=== PATIENT | female | born 1930 | race Caucasian/White ===

== ENCOUNTER → 2016-03-02 | Outpatient (CLI) | payer MEDICARE, BC ==
[~2016-03-02] MED LIST: ASPI81CH3 PO; ATIV1TAB10 PO; BYST10TA2 PO; CEFT500T3 PO; DIOV160T6 PO; DO NOT TAKE; FURO20TA2 PO; LEXA1TAB PO; LISI-538 PO; MAGN250T11 PO; MAGN400C2 PO; NIFE60TA6 PO; PROP50TA3 PO; TYLE167L PO; VITAMIN B
--- NOTE | 2016-03-02 15:16 | REP ---
CHEST, TWO VIEWS: HISTORY: Wheezing. COMPARISON: 07/18/2015 Minimal peribronchial cuffing is present. The heart is upper limits of normal in size. The pulmonary vasculature is normal in appearance. There is an old compression fracture of a mid thoracic vertebral body. The bony structure is osteopenic. IMPRESSION: There is peribronchial cuffing that may represent asthma or bronchitis. Signed by Guicho Phelps MD 03/02/2016 03:18 P
== END ==
LOC: M WUC 14:32
PROVIDERS: ATTEND Physician Assistant
DX: J20.9 Acute bronchitis, unspecified (principal); R06.2 Wheezing

== ENCOUNTER → 2016-04-05 | Outpatient (REF) | payer MEDICARE, BC | LOC: M LAB REF 16:21 | PROVIDERS: ATTEND Nurse Practitioner Women's Health | DX: R30.0 Dysuria (principal); R39.15 Urgency of urination; R35.1 Nocturia ==

== ENCOUNTER 2016-04-15 07:53 | Inpatient (IN) | payer BC, MEDICARE ==
[~2016-04-15] VITALS: Ht 162.6 cm; Wt 64.1 kg
[2016-04-15] MEDS ORDERED: ONDANSETRON 4MG/2ML VIAL (J2405) IV ONE ×2 (08:30→09:45)
[2016-04-15 09:05] LABS: INR 1.01
[2016-04-15] MEDS ORDERED: ALBU83IN (09:08)
[2016-04-15 09:13] LABS: ALBUMIN 3.5 GM/DL (3.2-5.2); ALBUMIN/GLOBULIN RATIO 0.95 (1.00-1.93); ALKALINE PHOSPHATASE 98 U/L (45-117); ALT/SGPT 21 U/L (12-78); ANION GAP 9 MEQ/L (8-16); AST/SGOT 12 U/L (15-37); BILIRUBIN,DIRECT 0.1 MG/DL (0.0-0.2); BILIRUBIN,TOTAL 0.5 MG/DL (0.2-1.0); BLOOD UREA NITROGEN 23 MG/DL (7-18); CALCIUM LEVEL 7.8 MG/DL (8.8-10.2); CARBON DIOXIDE LEVEL 24 MEQ/L (21-32); CHLORIDE LEVEL 112 MEQ/L (98-107); CREATININE FOR GFR 1.46 MG/DL (0.55-1.02); GLOMERULAR FILTRATION RATE 36.2 (>32); GLUCOSE, FASTING 123 MG/DL (83-110); POTASSIUM SERUM 4.3 MEQ/L (3.5-5.1); SODIUM LEVEL 145 MEQ/L (136-145); TOTAL PROTEIN 7.2 GM/DL (6.4-8.2)
--- NOTE | 2016-04-15 09:26 | REP ---
PORTABLE CHEST: AP portable view of the chest is performed and compared to prior study of 03/02/2016. There is mild cardiomegaly. There is pulmonary venous hypertension again noted. Mild chronic increased interstitial markings are seen in each lung base. There is somewhat poor ventilation. There is mild patchy atelectasis or infiltrate in the left retrocardiac region. IMPRESSION: Cardiomegaly and pulmonary venous hypertension. Mild left basilar atelectasis/infiltrate. Signed by Kamari Causey MD 04/15/2016 01:55 P
[2016-04-15 09:27] LABS: MEAN CORPUSCULAR HEMOGLOBIN 32.2 pg (27.0-33.0); MEAN CORPUSCULAR HGB CONC 32.4 g/dl (32.0-36.5); MEAN CORPUSCULAR VOLUME 99.5 fl (80.0-96.0); PLATELET COUNT, AUTOMATED 195 k/mm3 (150-450); RED CELL DISTRIBUTION WIDTH 13.3 % (11.5-14.5); WHITE BLOOD COUNT 10.2 K/mm3 (4.0-10.0)
[2016-04-15 09:29] LABS: BASOPHILS 1 % (0-4)
[2016-04-15 09:30] LABS: OVALOCYTES 1+
[2016-04-15] MEDS: METOPROLOL 5 MG/5 ML VIAL IV SCH ×3 (09:41→09:58)
[2016-04-15] MEDS ORDERED: METOPROLOL TART 50 MG TAB PO ONE (09:45)
[2016-04-15] MEDS ORDERED: MORPHINE 2 MG/ML 1ML SYRINGE IV ONE (09:45)
[2016-04-15] MEDS ORDERED: ISOVUE-370 76% 100ML VIAL (Q9967) As Ordered ONE (09:52)
[2016-04-15] MEDS ORDERED: DIGOXIN INJ 0.5 MG/2 ML AMP (J1160) IV ONE ×2 (12:00→16:00)
--- NOTE | 2016-04-15 12:06 | REP ---
CT ANGIOGRAM OF THE CHEST: TECHNIQUE: Axial contrast enhanced images from the thoracic inlet to the upper abdomen using 100 mL Isovue 370 intravenous contrast material with multiplanar reformations. Small right effusion is noted. There is a mild to moderate left effusion with adjacent left basilar atelectasis/infiltrate. Heart is mildly enlarged. There is no evidence of pulmonary embolism. There is no evidence of mediastinal, hilar or chest wall lymphadenopathy. There is no pericardial effusion. There is no thoracic aortic aneurysm with moderate atherosclerotic calcification noted. The visualized portion of the upper abdomen are essentially unremarkable except for a hyperdense cyst in the upper pole of the left kidney measuring about 7 mm. There are degenerative changes of the spine. IMPRESSION: No CT evidence of pulmonary embolism. Mild cardiomegaly. Small right effusion. Small to moderate left effusion with mild left basilar atelectasis/infiltrate. Signed by Kamari Causey MD 04/15/2016 01:57 P
--- NOTE | 2016-04-15 12:12 | REP ---
CT ABDOMEN AND PELVIS WITH IV CONTRAST: TECHNIQUE: Axial contrast enhanced images from the lung bases to the pubic symphysis using 100 mL Isovue 370 intravenous contrast material with multiplanar reformations. The liver demonstrates no mass. The patient has had a cholecystectomy. Prominent common bile duct is unchanged and within normal limits for a patient of this age status post cholecystectomy. The spleen and adrenals are unremarkable. Pancreas demonstrates no mass. However, at the inferior margin of the pancreatic head anteriorly is a simple appearing cyst measuring about 2.5 cm in diameter slightly increased in size since the prior study of 08/11/2013. There are bilateral renal cysts present. There is no change on the right. However, on the left, there is a new nodule with possible rim enhancement in the mid aspect of the left kidney 2.5 cm in diameter. Recommend ultrasound to further evaluate. In addition, there is mild left hydroureteronephrosis caused by a 2 mm calculus at the left ureterovesical junction. There are moderate atherosclerotic calcifications of the abdominal aorta without aneurysm or dissection. There is no adenopathy. There is no free air or free fluid. Extensive colonic diverticulosis is present as well as diverticulosis of the distal small bowel. There is no acute diverticulitis. There is no pelvic mass. Patient has had a hysterectomy. A pessary is again seen in the inferior pelvis. Urinary bladder is mildly distended and not optimally evaluated. There are degenerative changes of the spine. IMPRESSION: New nodule in the mid left kidney with probable peripheral enhancement measuring 2.5 cm in diameter. This may represent a complex cyst or solid mass. Recommend ultrasound to further evaluate. There are other renal cysts bilaterally unchanged. There is mild left hydroureteronephrosis caused by a 2 mm stone at the left ureterovesical junction. There is a simple appearing cyst at the inferior anterior margin of the pancreatic head which is probably benign. It has slightly increased in size since the 08/11/2013 exam measuring 2.5 cm in diameter, previously 1.7 cm in diameter. Signed by Kamari Causey MD 04/15/2016 01:57 P
[2016-04-15] MEDS ORDERED: MORPHINE 4 MG/ML 1ML SYRINGE IV ONE (12:15)
[2016-04-15] MEDS ORDERED: ACETAMINOPHEN TAB 650MG DOSE (2X325MG) PO PRN (13:45)
[2016-04-15] MEDS ORDERED: ONDANSETRON 4MG/2ML VIAL (J2405) IV PRN (13:45)
[2016-04-15] MEDS ORDERED: ALBU83IN INH (13:45)
[2016-04-15] MEDS ORDERED: TYLE325T5 PO (13:45)
[2016-04-15] MEDS ORDERED: REST0.05 OU (13:45)
[2016-04-15] MEDS ORDERED: ASPI1TAB PO (13:45)
[2016-04-15] MEDS ORDERED: MAGN64TASA PO (13:45)
[2016-04-15] MEDS ORDERED: LEVALBUTEROL 1.25 MG/0.5 ML CONCENTRATE NEB INH PRN (14:00)
[2016-04-15] MEDS ORDERED: MORPHINE 2 MG/ML 1ML SYRINGE IV PRN (14:45)
--- NOTE | 2016-04-15 14:59 | HPE ---
DATE OF ADMISSION: 04/15/2016 This is a patient of Dr. Neal Alvarado, Dr. Peter Paez and Dr. Lillian Cristina. CHIEF COMPLAINT: Pain in the left side, she could not stand. HISTORY OF PRESENT ILLNESS: This is a 86-year-old who was in her normal state of health yesterday who awoke from sleep this morning with left sided sharp pain which radiated to her left flank. She has a history of kidney stones and suspected that she had a kidney stone. Has a history of diverticulosis and was also concerned it might have been that. She describes no dysuria. No fever. No chest pains. She has had shortness of breath that has been worse for about a month. She has had multiple visits to health care including two visits to urgent care and one to pulmonology. She was started on a nebulizer, was given antibiotics. She had previously been on Breo but that was stopped around two months ago. She found that after using a nebulizer she experienced palpitations and increasing shortness of breath. She has lower extremity edema. She does not describe paroxysmal nocturnal dyspnea (PND). Her exercise tolerance is pretty good. She is able to walk up a flight of stairs carrying a basket of laundry, but at that point she would need to stop and rest. PAST MEDICAL HISTORY: Notable for: Hypertension. Chronic kidney disease with a baseline creatinine around 1.46. Macular degeneration. Hypertension. Hyperthyroidism for which she has propylthiouracil (PTU) therapy for some time. SURGICAL HISTORY: Notable for: Cataract extractions bilaterally. Removal of thyroid cyst. Cholecystectomy. Hysterectomy. Left inguinal hernia repair. FAMILY HISTORY: Not significant in this patient. SOCIAL HISTORY: She is a . She has a remote history of smoking. Does not use any significant alcohol. She is independent in her activities of daily living (ADL). She still drives. ALLERGIES: She has allergies listed to: 1. SULFA. HOME MEDICATIONS: - Tylenol 650 mg by mouth twice a day as needed - albuterol inhaled as needed shortness of breath - aspirin 81 mg daily - Lexapro 10 mg by mouth daily - Lasix 10 mg by mouth daily - Ativan 0.25 mg by mouth at bedtime - magnesium chloride 64 mg twice a day - nifedipine ER 60 mg by mouth at bedtime - propylthiouracil 50 mg half of a tablet by mouth three times a day - Diovan 160 mg by mouth twice a day - Restasis eye drops twice daily REVIEW OF SYSTEMS: Notable for no headache. No visual changes, although her vision is somewhat impaired. No neck pain. She is not experiencing significant cough, although she has been short of breath which she associates with her recent one month treatment for bronchitis. No sputum production. No abdominal pain. Her bowel movements are usually irregular. She does not develop more diarrhea with the use of antibiotics. No focal weakness. No history of seizures, otherwise is unremarkable. PHYSICAL EXAMINATION: Temperature is 97.8, pulse is 110, respiratory rate 16, blood pressure 145/85, 96%. Highest pulse rate recorded during her stay was 169. She has received digoxin and by mouth metoprolol, although it did cause low blood pressure. She is awake, alert, pleasantly interactive. She forgot her hearing aids and so she is slightly hard of hearing, but able to converse appropriately. Alert and oriented times three. Head is normocephalic. Sinuses are nontender. Pupils are equal, round and reactive, anicteric. Her right eye deviates somewhat medially. Mucous membranes moist. Neck supple. No cervical or supraclavicular adenopathy. Breathing is symmetrical, somewhat diminished throughout with some occasional wheeze. Heart is distant sounding. Normal S1 and S2. Tachycardic, irregular. Radial pulses are 2+. Capillary refill is less than 2 seconds. Abdomen is soft , doughy, nontender. There is no significant lower extremity edema. Strength is symmetrical in the upper and lower extremities, 5+ throughout. She has normal mood and affect. White cell count is 10.2, hemoglobin 12.4 and platelets of 195, neutrophils 89. INR 1.01. D-Dimer 921. BUN 23, creatinine 1.46 which is near her baseline. CK 35, on repeat she is at 30. Troponin I less than 0.02 and 0.02. BNP is 1650. TSH is 0.74 and free T4 is 1.28. EKG shows atrial fibrillation with rapid ventricular response. CT of the abdomen and pelvis is notable for a mid left kidney peripheral enhancement measuring 2.5 cm in diameter, which is new, which either represents a complex cyst or solid mass. There is mild left hydroureteronephrosis caused by a 2 mm stone. A cyst of the pancreatic head slightly increased from 2013. CT angiogram showed no evidence of pulmonary embolism. My assessment is as follows: This is an 86-year-old with atrial fibrillation and RVR. Patient will require a two midnight hospital stay and telemetry monitoring. Plan will be as follows: 1. Cardiovascular. Patient has atrial fibrillation and RVR, and known hypertension. I believe she has been in and out of RVR for at least the last month. This may have resulted in some decompensation of heart failure which has lead to her elevated BNP. I think rate control is of primary importance. Her CHADS-VASc score would indicate that she needs anticoagulation, although possible need for urologic procedure precludes that at this time. She would certainly qualify for it should she not need surgical intervention. Dr. Cristina has been consulted. Given the fact that beta-gonsalo has lead to low blood pressure will give an additional dose of IV digoxin. 2. Urologic. The patient has a 2 mm stone causing mild hydro ureteral stenosis on the left, which is the cause of her presentation with pain. There was also an incidental mass noted in the kidney. Urology consultation from Dr. Milton has been ordered. It is unclear to me that she needs an immediate surgical intervention. There is no evidence of an obvious infection. 3. The patient had a cyst of her pancreatic head which has increased since 2014. This could be monitored as an outpatient. 4. The patient has chronic kidney disease stage III, is at her baseline. Has received a dose of IV contrast and has some evidence of hydronephrosis. This could worsen before it gets better. I am also concerned about the possibility of decompensated heart failure in the setting of atrial fibrillation with RVR. Will not give IV fluid at this point. 5. The patient has hyperthyroidism is on PTU. Thyroid function panel is within normal limits. 6. Deep vein thrombosis (DVT) prophylaxis. This has been ordered. 7. Respiratory. The patient has been followed by Dr. Paez apparently for asthma. She has wheeze at this point, which I believe is most likely cardiac. If we give respiratory therapy will try Xopenex at a lower dose, which may or may not be useful. MTDD
[2016-04-15 16:00] VITALS: BP 134/83
[2016-04-15] MEDS: PROPYLTHIOURACIL 50 MG TAB PO SCH ×2 (16:48→21:15)
[2016-04-15] MEDS: ESCITALOPRAM OXALATE 10 MG TAB (LEXAPRO) PO SCH (16:48)
[2016-04-15] MEDS: FUROSEMIDE 10MG PER 1/2 TABLET PO SCH (16:48)
[2016-04-15] MEDS: ENOXAPARIN 60 MG/0.6 ML SYR (J1650) SC SCH (16:49)
--- NOTE | 2016-04-15 17:39 | CR ---
DATE OF CONSULTATION: 04/15/2016 REFERRING PHYSICIAN: Dr. Jiang. PRIMARY CARE PHYSICIAN: Dr. Alvarado. REASON FOR CONSULTATION: Atrial fibrillation with rapid ventricular response. HISTORY OF PRESENT ILLNESS: Mrs. Yun is a pleasant 86-year-old female who is previously unknown to me. She has no history of cardiac issues. She came to hospital because of left flank pain and was found to have nephrolithiasis. Simultaneously though she was found to be in atrial fibrillation with rapid ventricular response. She received 50 mg of metoprolol orally which led to some drop in blood pressure which, though, bounced back gentle hydration and she also received 0.25 mg of digoxin. At the time of my interview, heart rate is approximately 125 beats per minute. She feels relatively comfortable. The patient does report that she has been more short of breath for about two months. At that point, she felt she had upper respiratory infection and was seen initially by Dr. Alvarado and later in Urgent Care. She was prescribed nebulizers and she said that since she has been using them, she has noted that heart rate is high. She does not have any distinct sensation of palpitations though. She denies any chest pain. Shortness of breath is approximately [place] Heart Association class III. PAST MEDICAL HISTORY: 1. Hypertension. 2. Chronic renal insufficiency stage III. 3. Macular degeneration, glaucoma. 4. Hyperthyroidism. SURGICAL HISTORY: Is positive for cataracts extractions, thyroid cyst removal, cholecystectomy, hysterectomy and inguinal hernia surgery. FAMILY HISTORY: Of note, the patient's daughter had history of deep venous thrombosis (DVT). SOCIAL HISTORY: The patient is for six years. She lives alone, still very independent including driving. She used to smoke about 50 years ago. No significant alcohol use. ALLERGIES: She reports allergies to SULFA. HOME MEDICATIONS: - albuterol - aspirin 81 - Lexapro 10 - Lasix 10 - Ativan 0.25 at bedtime - magnesium - nifedipine 60 - Propylthiouracil (PTU) 50 three times a day - Diovan 160 twice a day - Restasis REVIEW OF SYSTEMS: She denies any headache. There is no history of stroke. She denies history of bleeding problems including hematuria. No history of hematemesis or blood per rectum. No abdominal pain other than for left flank pain in last few days. No nausea, no vomiting. She has occasional mild peripheral edema. PHYSICAL EXAMINATION: GENERAL: Mrs. Yun and is an elderly [place]ian female. She appears approximately her age. VITAL SIGNS: Blood pressure 124/83, heart rate is around 120. She is afebrile. Saturation is 94% on room air. NECK: Jugular venous pressure (JVP) is about 4 cm above clavicle. LUNGS: Are relatively clear to auscultation even though the breath sounds are slightly diminished over bases and there are some minimal expiratory wheezes. HEART: Exam reveals irregular tachycardia. There is a faint systolic murmur best heard over the aortic valve. I do not appreciate gallop, rub or apical murmur. ABDOMEN: There is some mild tenderness in left upper quadrant but no guarding. Good bowel sounds. EXTREMITIES: Have no edema and good peripheral pulse. LABORATORY: Hemoglobin 12.4, hematocrit 38, platelet count 195, WBC count is 10.2. Basic metabolic panel: Potassium 4.3, BUN 23, creatinine 1.54. GFR 36 and glucose 123. Normal liver function tests. Troponin is negative times two. BNP is 1600 and albumin is 3.5. IMAGING: Chest x-ray and CT of the chest are negative for pulmonary embolism and suggestive of congestive heart failure. An ECG reveals atrial fibrillation with rapid ventricular response and no significant ST-T abnormalities. ASSESSMENT AND PLAN: Mrs. Yun is and 86-year-old lady without prior history of cardiac arrhythmias or coronary artery disease, who presents with atrial fibrillation with rapid ventricular response. It is in setting of flank pain due to nephrolithiasis. Based on the history, she probably has had persistent atrial fibrillation or at least paroxysmal atrial fibrillation for at least two months. First goal is to accomplish anticoagulation. At this point it is not clear whether she will need any urologic procedure, but it is unlikely that anything will be done today and consequently I will commercial electrician her at least a single dose of Lovenox that should cover her for next approximately 24 hours considering her renal insufficiency. Then we can decide whether it may need to be continued for few days or if no procedure in urologic sphere will be planned, then we will give her probably one of the new oral anticoagulants (NOACs). As far as the rate control is concerned, I will give her low-dose metoprolol plus digoxin. I use digoxin because her blood pressure was soft and she already received two doses. But in the long run is not a good choice and I foresee that she probably will be on metoprolol, or if she should not tolerated well, then on a calcium channel gonsalo like Cardizem. I am going to obtain an echocardiogram. She had an echocardiogram in our office last summer that was relatively unremarkable, but situation may have changed. Then will come with long-term plan. Either transesophageal echocardiogram (HERIBERTO) cardioversion or more likely rate control with possible cardioversion to follow in few weeks. As far as congestive heart failure is concerned, it is very likely due to uncontrolled rate. I do see improvement with just better rate control. Because she got intravenous (IV) contrast, I am reluctant to give her high-dose diuretics. We will see what her creatinine will be tomorrow and then will decide about need for diuretics accordingly. I had a discussion with the patient and her daughter about this plan and tried to explain the rationale for our decisions. I will follow the patient with you. INDICATION MTDD
[2016-04-15 19:04] VITALS: BP 102/77
--- NOTE | 2016-04-15 20:18 | ECGEPIP ---
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
--- NOTE | 2016-04-15 20:19 | ECGEPIP ---
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
[2016-04-15] MEDS ORDERED: HEPARIN SOD (PORCINE) 5000 UNITS/ML VIAL SC SCH (21:00)
[2016-04-15] MEDS: LORazepam 0.5 MG TAB PO SCH (21:14)
[2016-04-15] MEDS: TAMSULOSIN 0.4 MG CAP PO SCH (21:14)
[2016-04-15] MEDS: ceFAZolin SOD 1 GM in D5W MINI-BAG PLUS 50 ML IV SCH (21:14)
[2016-04-15] MEDS: MAGNESIUM CHLORIDE 64 MG TABCR (SLO MAG) PO SCH (21:15)
[2016-04-15] MEDS: D5W/0.45% SODIUM CHLORIDE 1,000 ML IV SCH (21:15)
[2016-04-15] MEDS: METOPROLOL TART 25 MG TABLET PO SCH (21:22)
[2016-04-15] MEDS: POLYVINYL ALCOHOL OPHTH SOLN 15 ML(LIQUITEARS) OU SCH (21:26)
[2016-04-15 23:34] VITALS: BP 102/65
[2016-04-16] VITALS (7 sets, daily range): BP systolic 92–124; BP diastolic 52–77
[2016-04-16] MEDS: ceFAZolin SOD 1 GM in D5W MINI-BAG PLUS 50 ML IV SCH ×3 (02:24→18:11)
[2016-04-16 05:37] LABS: MEAN CORPUSCULAR HEMOGLOBIN 32.4 pg (27.0-33.0); MEAN CORPUSCULAR HGB CONC 31.9 g/dl (32.0-36.5); MEAN CORPUSCULAR VOLUME 101.4 fl (80.0-96.0); RED CELL DISTRIBUTION WIDTH 13.1 % (11.5-14.5); WHITE BLOOD COUNT 5.8 K/mm3 (4.0-10.0)
[2016-04-16 05:49] LABS: CALCIUM LEVEL 6.8 MG/DL (8.8-10.2); CREATININE FOR GFR 2.02 MG/DL (0.55-1.02); GLOMERULAR FILTRATION RATE 24.9 (>32); POTASSIUM SERUM 4.2 MEQ/L (3.5-5.1)
--- NOTE | 2016-04-16 08:09 | ECGEPIP ---
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
[2016-04-16] MEDS: METOPROLOL TART 25 MG TABLET PO SCH ×2 (09:00→20:43)
--- NOTE | 2016-04-16 09:37 | IPNPDOC ---
Assessment/Plan Date Seen The patient was seen on 04/16/16. Patient Summary This is an 86 y/o F admitted for treatment of a fib, also found to have an obstructing 2mm left ureterovesical junction stone and an enhancing 2.5cm left renal mass. Her pain is gone this morning, indicating she has likely passed the stone. Her Cr did bump to 2.0, but this is likely related to the IV contrast w/ her CT scan yesterday. Will continue to observe her for now as the stone will pass if it has not already done so. Regarding the left renal mass, we will follow this as an outpatient w/ repeat imaging in a few months. Plan/VTE VTE Prophylaxis Ordered?: Yes VTE Exclusion Mechanical Proph: N/A:VTE Prophy Ordered Plan - ok to resume the patient's diet - plan for outpatient f/u of the left renal mass - f/u on Cr tomorrow morning - if still rising, will likely recommend taking her to the OR for a left ureteroscopy - NPO at midnight in case we need to take her to the OR tomorrow Subjective Review oF Systems Chief Complaint The patient is a 86-year-old female admitted with a reason for visit of Atrial Fibrillation With Rvr. Events since Last Encounter No acute events o/n. The patient notes that her LLQ abdominal pain is now gone. She denies nausea. She has no voiding complaints. Objective Physical Examination General Exam: : Alert: Cooperative: No Acute Distress ABDOMEN EXAM: No: Soft, Tenderness Skin Exam: : Nl turgor and temperature Neuro Exam: : Normal Gait: Normal Speech Other physical findings no CVA tenderness Vital Signs/I&O Vital Signs Date Time Temp Pulse Resp B/P Pulse Ox O2 Delivery O2 Flow Rate FiO2 04/16/16 08:00 96.5 56 19 92/69 95 Room Air I&O- Last 24 Hours up to 6 AM 04/16/16 05:59 Intake Total 610 ml Output Total 400 ml Balance 210 ml Laboratory Data Labs 24H Laboratory Tests 2 04/15/16 10:12: Creatine Kinase MB 1.3, Creatine Kinase MB Relative Index 4.33H, Total Creatine Kinase 30, Troponin I 0.02 04/15/16 18:09: Creatine Kinase MB 1.8, Creatine Kinase MB Relative Index 5.45H, Total Creatine Kinase 33, Troponin I < 0.02 04/16/16 02:22: Urine Amorphous Sediment , Urine Appearance HAZY, Urine Color YELLOW, Urine pH 5.0, Urine Specific [place] 1.029, Urine Protein NEGATIVE, Urine Glucose (UA) NEGATIVE, Urine Ketones NEGATIVE, Urine Urobilinogen 0.2, Urine Bilirubin NEGATIVE, Urine Leukocyte Esterase 2+H, Urine Bacteria (Auto) NEGATIVE, Urine Blood 2+H, Urine Calcium Carbonate Cryst(Auto) , Urine Calcium Oxalate Cryst ( Auto) , Urine Calcium Phosphate Nanette (Auto) , Urine Cellular Casts , Urine Cystine Crystals , Urine Granular Casts (Auto) , Urine Hyaline Casts (Auto) 0, Urine Leucine Crystals , Urine Mucus (Auto) SMALL, Urine Nitrite NEGATIVE, Urine Oval Fat Bodies (Auto) , Urine RBC (Auto) 7H, Urine Renal Epithelial Cells , Urine Sperm (Auto) , Urine Squamous Epithelial Cells 2, Urine Transitional Epithelial Cells , Urine Trichomonas (Auto) , Urine Triple Phosphate Cryst (Auto) , Urine Tyrosine Crystals , Urine Uric Acid Crystals ( Auto) , Urine WBC (Auto) 22H, Urine Waxy Casts (Auto) , Urine Yeast-Like Cells ( Auto) 04/16/16 05:02: Anion Gap 7L, Blood Urea Nitrogen 25H, Creatinine 2.02H, Sodium Level 142, Potassium Level 4.2, Chloride Level 110H, Carbon Dioxide Level 25, Calcium Level 6.8L, Glomerular Filtration Rate 24.9L, Magnesium Level 2.0 CBC/BMP Laboratory Tests 04/16/16 05:02 Calcium Level 6.8 L, Red Blood Count 3.14 L, Mean Corpuscular Volume 101.4 H, Mean Corpuscular Hemoglobin 32.4, Mean Corpuscular Hemoglobin Concent 31.9 L, Red Cell Distribution Width 13.1 SANJEEV FOSTER MD Apr 16, 2016 09:37
[2016-04-16] MEDS: PROPYLTHIOURACIL 50 MG TAB PO SCH ×3 (09:56→20:44)
[2016-04-16] MEDS: ESCITALOPRAM OXALATE 10 MG TAB (LEXAPRO) PO SCH (09:58)
[2016-04-16] MEDS: MAGNESIUM CHLORIDE 64 MG TABCR (SLO MAG) PO SCH ×2 (09:59→20:43)
[2016-04-16] MEDS: POLYVINYL ALCOHOL OPHTH SOLN 15 ML(LIQUITEARS) OU SCH ×2 (09:59→20:44)
[2016-04-16] MEDS: FUROSEMIDE 10MG PER 1/2 TABLET PO SCH (11:22)
[2016-04-16] MEDS: D5W/0.45% SODIUM CHLORIDE 1,000 ML IV SCH ×2 (11:24→20:44)
[2016-04-16] MEDS: ENOXAPARIN 60 MG/0.6 ML SYR (J1650) SC SCH (16:52)
--- NOTE | 2016-04-16 19:46 | ECHO ---
DATE OF PROCEDURE: 04/16/2016 REFERRING PHYSICIAN: Dr. Cristina INDICATION: Dyspnea atrial fibrillation. HEIGHT: 163 cm WEIGHT: 66 kg DIMENSIONS: IVS: 0.9 LV 5.2 LVPW 1.0 LA 4.3 Aorta 3.4 FINDINGS: The study is of acceptable technical quality. Left ventricle is of normal size. During the study the patient was in atrial fibrillation with rapid ventricular response on average about 110 beats per minute. Based on somewhat limited views, I estimate ejection fraction (EF) around 50% but I do not appreciate any segmental wall motion abnormalities. Right ventricle is not grossly enlarged. Both atria are severely enlarged. Left atrial volume index was calculated 44 ml per meter square. Aortic valve is mildly sclerotic but is tricuspid and mobility is preserved. Mitral valve exhibits no significant abnormalities accounting for patient's age. Tricuspid valve appears normal. Pulmonic valve was not well seen. No pericardial effusion is noted. Left pleural effusion is seen. Inferior vena cava is dilated and has only partial collapse with respiration indicative of high central venous pressure. Aortic root is normal. Aortic arch and abdominal aorta were not visualized. Doppler interrogation reveals no significant aortic stenosis (mean gradient was 8 mmHg) and mild insufficiency. There is also mild mitral insufficiency. There is approximately mild to moderate tricuspid insufficiency. Calculated pulmonary artery pressure was in 40s corresponding to moderate pulmonary hypertension. Evaluation of diastolic function is inconclusive due to underlying atrial fibrillation. CONCLUSION: 1. Study is of acceptable technical quality. 2. Normal left ventricle (LV) size with low normal LV systolic function based on difficult visualization. 3. Severe biatrial enlargement. 4. Aortic sclerosis resulting in trivial stenosis and mild insufficiency. 5. Approximately mild to moderate tricuspid insufficiency. 6. High central venous pressure and likely moderate pulmonary hypertension. 7. Left pleural effusion. 8. Severe biatrial enlargement. COMMENT: Subacute bacterial endocarditis (SBE) prophylaxis is not recommended. MTDD
--- NOTE | 2016-04-16 20:09 | IPN ---
DATE: 04/16/2016 Patient seen and examined. No acute events overnight. Reported flank pain has resolved. Denies any chest pain, pressure or discomfort. Feeling comfortable. Denies any shortness of breath, marked nausea or vomiting. VITAL SIGNS: Temperature 97, pulse 89, respirations 19, blood pressure 118/69, pulse oximetry 90% on room air. LABORATORY DATA: WBC 5.8, hemoglobin and hematocrit 10.2 over 31.9, platelets 153. Sodium 142, potassium 4.2, chloride 110, bicarbonate 25, BUN 25, creatinine 2.02. Cardiac enzymes negative times two. The patient is alert and oriented times three, in no acute distress, pleasant. HEENT: Normocephalic, atraumatic. PULMONARY: Bilaterally clear to auscultation. CARDIAC: Irregular, mildly tachycardic, 2/6 systolic murmur. ABDOMEN: Minimum left-sided tenderness. BACK: No costovertebral angle tenderness. EXTREMITIES: Trace edema bilateral lower extremities. ASSESSMENT AND PLAN: This is an 86-year-old female patient with underlying medical history of hypertension, chronic kidney disease, baseline creatinine of 1.46, macular degeneration, hypertension, hyperthyroidism, admitted to the hospital with left flank pain, was found to be in atrial fibrillation (a fib) with rapid ventricular response. Problems: 1. Atrial fibrillation with rapid ventricular response. Cardiology followup, telemetry. The patient was given digoxin as well as metoprolol. Dosage has been adjusted by cardiology. One dose of Lovenox for anticoagulation was given, since the patient has potential of going to surgery, oral agent has been on hold. Likely will start oral agent as per Dr. Cristina tomorrow. In the meantime, will continue to monitor. Thyroid-stimulating hormone (TSH) appreciated and free T4 appreciated as well. Cardiac enzymes appreciated. 2. Hydroureter stenosis with obstructing kidney stone on presentation. Urology, Dr. Milton and Dr. Howard, has been consulted. CT scan appreciated. Based on patient's white count, there is no evidence of infection. As per Urology, given the patient's pain has resolved, the patient likely passed a stone. Will continue to monitor BUN and creatinine and keep the patient nothing by mouth for the morning for potential procedure. 3. Acute on chronic renal insufficiency. Likely secondary to contrast - will continue to monitor versus obstructive uropathy. IV hydration has been ordered. Will continue to monitor. 4. Left kidney mass. Discussed with Urology. Likely will need outpatient followup. No acute intervention at this time given patient's advanced age and small size of the lesion. Case discussed with Dr. Howard. 5. 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 Will require outpatient monitoring. 6. Hyperthyroidism. Patient on propylthiouracil (PTU). Continue to follow. 7. Hypertension. Continue current medications. Monitor blood pressures. 8. Deep vein thrombosis (DVT) prophylaxis. The patient is on Lovenox. DISPOSITION: Pending urology and cardiology, telemetry monitoring.
--- NOTE | 2016-04-16 20:16 | IPN ---
DATE: 04/16/2016 I saw Mrs. Yun on rounds this morning. She tells me that she was able to sleep without major difficulty and she feels virtually asymptomatic at rest. She continues to be in atrial fibrillation. The heart rate is typically around 90, but it fluctuates from 70s up to about 110. She is afebrile. Saturation was 95% on room air. Blood pressure tends to be relatively low; systolic blood pressure this morning was documented at 92/69, weight is 67.8 kg. She is alert and oriented and appropriate. The jugular venous pressure (JVP) is mildly elevated, about 3-4 cm. Lungs are though clear to auscultation. I do not appreciate any wheezing, crackles or rhonchi. Heart: Exam reveals irregularly irregular rhythm. Murmurs are faint and unchanged from yesterday. Abdomen is soft. There is no peripheral edema. Neurologically she is intact. LABORATORY: This morning hemoglobin 10.2, hematocrit 31.9 and platelet count 155,000. Basic metabolic panel: Potassium 4.2, BUN 25, creatinine 2 for calculated GFR 25 and glucose 95. Two sets of cardiac enzymes are negative. ASSESSMENT AND PLAN: Mrs. Yun is an 86-year-old female who presents with flank pain, believed to be due to urolithiasis. I spoke with Dr. Howard this morning, and there is no immediate plan for an intervention. He believes that most likely the stone already passed. Atrial fibrillation was found to be basically coincidental finding. It probably has been present for about 2 months based on history. I gave her only Lovenox for anticoagulation just in case she will need some urologic procedure. I will continue the same at least one more day. Unfortunately, her renal function has deteriorated, most likely as a consequence of administered IV contrast. Consequently, I did not start diuretics other than her baseline Lasix dose until I see some improvement in renal function. As far as the rate control is concerned, it seems to be acceptable on current regimen. Tentatively, I do foresee that most likely will continue rate control and anticoagulation for a few weeks to be followed by cardioversion. She should be diuresed somewhat. I am reluctant to give her diuretic until I see at least modest improvement in renal function as above.
[2016-04-16] MEDS: LORazepam 0.5 MG TAB PO SCH (20:43)
[2016-04-16] MEDS: TAMSULOSIN 0.4 MG CAP PO SCH (20:43)
[2016-04-17] MEDS: ceFAZolin SOD 1 GM in D5W MINI-BAG PLUS 50 ML IV SCH ×3 (02:09→18:58)
[2016-04-17] MEDS: D5W/0.45% SODIUM CHLORIDE 1,000 ML IV SCH (03:04)
[2016-04-17 04:00] VITALS: BP 129/61
[2016-04-17 06:00] LABS: MEAN CORPUSCULAR HEMOGLOBIN 32.4 pg (27.0-33.0); MEAN CORPUSCULAR HGB CONC 31.9 g/dl (32.0-36.5); MEAN CORPUSCULAR VOLUME 101.7 fl (80.0-96.0)
[2016-04-17 06:10] LABS: CALCIUM LEVEL 7.4 MG/DL (8.8-10.2); CREATININE FOR GFR 1.7 MG/DL (0.55-1.02); GLOMERULAR FILTRATION RATE 30.4 (>32); POTASSIUM SERUM 4.2 MEQ/L (3.5-5.1)
--- NOTE | 2016-04-17 07:22 | CR ---
DATE OF CONSULTATION: 04/15/2016 ATTENDING PHYSICIAN: Dr. Christopher Jiang PRIMARY CARE PHYSICIAN: Dr. Neal Alvarado REASON FOR CONSULTATION: This is an 86-year-old white female with two problems; one, partially obstructing distal ureteral calculus, and two, complex left renal mass. Asked to evaluate the patient and treat definitively. CLINICAL HISTORY: This 86-year-old white female presented to the emergency room with sudden onset of left flank pain associated with nausea and vomiting. In the emergency room, CT scan was done which showed mild left hydroureteronephrosis with combination dilated system. Radiologist presumed a small stone measuring 2 cm overlying the distal ureter in the area of the left ureterovesical junction. Also of significance on presentation, the patient was noted to have new onset atrial fibrillation. Because of these findings, the patient was admitted for further evaluation and definitive treatment. Patient denies having prior history of kidney stones. Denies any associated fever, chills, gross hematuria, or dysuria. In regards to the atrial fibrillation, she states this new onset and as far as she knows has never been diagnosed with this problem. MEDICATIONS: Please refer to the patient's medication administration record sheet. ALLERGIES: No known drug allergies. PAST SURGICAL HISTORY: 1. Status post cholecystectomy. 2. Status post appendectomy. 3. Status post left inguinal herniorrhaphy. PAST MEDICAL HISTORY: 1. High blood pressure. 2. History of deep vein thrombosis (not an issue now). FAMILY HISTORY: Mother of pancreatic cancer. Father from abdominal aortic aneurysm rupture. SOCIAL HISTORY: Patient has four children. Patient denies smoking or alcohol usage. REVIEW OF SYSTEMS: Patient states in fairly good health and is followed by her primary care physician. CARDIOVASCULAR: Denies any chest pain. Patient stated that she was recently started on nebulizers for pulmonary issues and felt that her atrial fibrillation may be related to that. GI: Denies any gastroesophageal reflux disease (GERD). : Denies prior history of kidney stones. Denied gross hematuria. NEUROLOGICAL: Denies any seizure disorder. PSYCHIATRIC: Denies any depression. PHYSICAL EXAMINATION: Revealed a well-nourished, white female in no apparent distress following the administration of analgesics. VITAL SIGNS: Within normal limits. HEENT: Unremarkable. LUNGS: Good expansion and expression of her chest wall. Lungs clear. HEART: Regular rate and rhythm. ABDOMEN: Soft with good bowel sounds and no palpable organomegaly. BACK: No costovertebral angle (CVA) tenderness. EXTREMITIES: Full range of motion. NEUROLOGIC: She is alert, and oriented times three. LABS: Included a CT scan which showed a 2 mm stone overlying the area of the right ureterovesical junction. 2) Also showed multiple bilateral renal cysts, but more important, on the left side there appeared to be a complex cyst that favors at least a Bosniak 2F. Otherwise, urinalysis was pending at the time of this dictation. IMPRESSION: 1. Left renal colic. 2. Left hydroureteronephrosis. 3. Left distal ureteral calculus. 4. Complex left renal mass. 5. Bilateral renal cysts. PLAN: 1. Agree with admission. 2. Intravenous hydration. 3. Strain all urine. 4. Parenteral analgesics. 5. Add Flomax. 6. Discussion with family in regards to definitive treatment. 7. Conservative treatment in regards to the distal left ureteral calculus as consensus is that the patient may spontaneously pass the stone.
[2016-04-17 08:00] VITALS: BP 149/88
--- NOTE | 2016-04-17 08:14 | IPN ---
DATE: 04/17/2016 Mrs. Yun is doing relatively well. On a positive sign, she passed the kidney stone and has it at her bedside in a small cup. She denies any discomfort in her flank. On the other hand, she still remains mildly short of breath and her rate atrial fibrillation is not perfectly well controlled. The typical heart rate is around 110 beats per minute. She also had an echocardiogram yesterday that revealed severe dilatation of both atria which points toward probably a longer duration of the arrhythmia. Vital signs: Blood pressure 129/61, heart rate is as above in the 100 and 100 and teens. She is afebrile. Saturation 90% on room air. Fluid balance yesterday was positive. Weight is 67.1 kg. Her JVP is elevated. Lungs are relatively clear to auscultation though heart exam is irregularly irregular rhythm. Abdomen is soft, nontender. There is trace edema. Neurologically: She appears completely intact. LABORATORY: Hemoglobin 10.9, hematocrit 34, platelet count 154,000. Basic metabolic panel: Potassium 4.2, BUN 21, creatinine 1.7, glucose 103. ASSESSMENT AND PLAN: Mrs. Yun is an 86-year-old lady who came in with flank pain due to nephrolithiasis. As a concomitant finding, she was found to be in atrial fibrillation with rapid ventricular response and associated congestive heart failure. As far as management of atrial fibrillation is concerned, I am going to anticoagulate her with Eliquis as at this point it appears unlikely that she would need any urologic instrumentation. I will increase the dose of metoprolol to 50 mg twice a day. My initial plan was to administer amiodarone, but because she takes PTU for hyperthyroidism it is probably not a good choice. Consequently, we will try to be aim for rate control to get enough time for anticoagulation and then will attempt introduction of antiarrhythmics and cardioversion after sufficient time in anticoagulated state. As far as congestive heart failure is concerned, I do expect some improvement with rate control, but she is clearly volume overloaded. Her renal function is now improving and I believe that the bump in creatinine was likely due to administered IV contrast. I am going to start her on IV furosemide today and will discontinue IV hydration.
[2016-04-17] MEDS: POLYVINYL ALCOHOL OPHTH SOLN 15 ML(LIQUITEARS) OU SCH ×2 (09:00→21:00)
[2016-04-17] MEDS: PROPYLTHIOURACIL 50 MG TAB PO SCH ×3 (10:58→20:34)
[2016-04-17] MEDS: ESCITALOPRAM OXALATE 10 MG TAB (LEXAPRO) PO SCH (10:58)
[2016-04-17] MEDS: METOPROLOL TART 50 MG TAB PO SCH ×2 (11:03→20:34)
[2016-04-17] MEDS: MAGNESIUM CHLORIDE 64 MG TABCR (SLO MAG) PO SCH ×2 (11:04→20:30)
[2016-04-17] MEDS: FUROSEMIDE 40 MG/4 ML VIAL (J1940) IV SCH ×2 (11:04→16:57)
[2016-04-17] MEDS ORDERED: ELIQ2.5T PO (11:11)
[2016-04-17 12:00] VITALS: BP 148/74
--- NOTE | 2016-04-17 14:15 | IPNPDOC ---
Text Note Date of Service The patient was seen on 04/17/16. NOTE Subjective: Patient's feels well. Flank pain has resolved. Denies chest pain/ palpitations/SOB. Objective: Vitals: (see below) General: No acute distress, laying comfortably in bed. HEENT: Moist mucous membranes. Neck: No JVD or lymphadenopathy Cardiac: Irregularly irregular, No murmurs Pulm: Diminished breath sounds at the bases bilaterally. No wheezing or rhonchi. Abd: NT/ND + BS Ext: Trace edema bilateral lower extremity. No cyanosis. Labs (see below) Images: Echocardiogram 04/16/16 CONCLUSION: 1. Study is of acceptable technical quality. 2. Normal left ventricle (LV) size with low normal LV systolic function based on difficult visualization. 3. Severe biatrial enlargement. 4. Aortic sclerosis resulting in trivial stenosis and mild insufficiency. 5. Moderate approximately mild to moderate tricuspid insufficiency. 6. High central venous pressure and likely moderate pulmonary hypertension. 7. Left pleural effusion. 8. Severe biatrial enlargement. CT abdomen and pelvis on 04/15/16 IMPRESSION: New nodule in the mid left kidney with probable peripheral enhancement measuring 2.5 cm in diameter. This may represent a complex cyst or solid mass. Recommend ultrasound to further evaluate. There are other renal cysts bilaterally unchanged. There is mild left hydroureteronephrosis caused by a 2 mm stone at the left ureterovesical junction. There is a simple appearing cyst at the inferior anterior margin of the pancreatic head which is probably benign. It has slightly increased in size since the 08/11/2013 exam measuring 2.5 cm in diameter, previously 1.7 cm in diameter. Assessment/Plan 1. Atrial fibrillation with rapid ventricular response. Appreciate cardiology input. Patient is on digoxin as well as metoprolol. Metoprolol dose was increased today. Patient was switched to Eliquis today by cardio. Cardiac enzymes negative. Echocardiogram (see above) 2. Left hydroureter nephrosis with 2 mm stone - pain has resolved patient likely had some past the stone. Flomax was added. Appreciate urology input. Renal function improving. 3. Acute kidney injury on chronic renal insufficiency- creatinine is improving. We'll continue to monitor. Strict I/O. Avoid nephrotoxins. 4. Left kidney mass- urology on board. Will need outpatient follow-up. 5. Pancreatic cyst- will need outpatient monitoring. 6. History of hyperthyroidism- on PTU, continue to monitor 7. Hypertension- controlled continue current meds DVT prophy: Eliquis VS,Fishbone, I+O VS, Fishbone, I+O Laboratory Tests 04/17/16 05:26 Calcium Level 7.4 L, Red Blood Count 3.35 L, Mean Corpuscular Volume 101.7 H, Mean Corpuscular Hemoglobin 32.4, Mean Corpuscular Hemoglobin Concent 31.9 L, Red Cell Distribution Width 13.0 Vital Signs Date Time Temp Pulse Resp B/P Pulse Ox O2 Delivery O2 Flow Rate FiO2 04/17/16 12:00 97.1 91 19 148/74 96 Room Air I&O- Last 24 Hours up to 6 AM 04/17/16 06:00 Intake Total 2700 ml Output Total 1000 ml Balance 1700 ml BENSON PICKETT MD Apr 17, 2016 14:15
[2016-04-17 16:00] VITALS: BP 136/100
[2016-04-17 20:00] VITALS: BP 130/65
[2016-04-17] MEDS: LORazepam 0.5 MG TAB PO SCH (20:30)
[2016-04-17] MEDS: TAMSULOSIN 0.4 MG CAP PO SCH (20:33)
[2016-04-17] MEDS: APIXABAN 2.5 MG TAB (ELIQUIS) PO SCH (20:33)
[2016-04-17 23:59] VITALS: BP 127/82
[2016-04-18] MEDS: ceFAZolin SOD 1 GM in D5W MINI-BAG PLUS 50 ML IV SCH ×3 (01:42→17:35)
[2016-04-18 04:00] VITALS: BP 124/72
[2016-04-18 05:57] LABS: MEAN CORPUSCULAR HGB CONC 33.3 g/dl (32.0-36.5); MEAN CORPUSCULAR VOLUME 98.8 fl (80.0-96.0); RED CELL DISTRIBUTION WIDTH 13.2 % (11.5-14.5); WHITE BLOOD COUNT 5.7 K/mm3 (4.0-10.0)
[2016-04-18 06:18] LABS: CALCIUM LEVEL 7.8 MG/DL (8.8-10.2); CREATININE FOR GFR 1.49 MG/DL (0.55-1.02); GLOMERULAR FILTRATION RATE 35.4 (>32); MAGNESIUM LEVEL 1.6 MG/DL (1.8-2.4); POTASSIUM SERUM 3.3 MEQ/L (3.5-5.1)
[2016-04-18 07:54] VITALS: BP 107/77
[2016-04-18] MEDS ORDERED: POTASSIUM CHLORIDE 10 MEQ SR TABLET PO ONE (09:00)
[2016-04-18] MEDS: ESCITALOPRAM OXALATE 10 MG TAB (LEXAPRO) PO SCH (09:27)
[2016-04-18] MEDS: APIXABAN 2.5 MG TAB (ELIQUIS) PO SCH ×2 (09:27→20:45)
[2016-04-18] MEDS: POLYVINYL ALCOHOL OPHTH SOLN 15 ML(LIQUITEARS) OU SCH ×2 (09:28→21:00)
[2016-04-18] MEDS: PROPYLTHIOURACIL 50 MG TAB PO SCH ×3 (09:28→20:45)
[2016-04-18] MEDS: MAGNESIUM CHLORIDE 64 MG TABCR (SLO MAG) PO SCH ×2 (09:28→20:43)
[2016-04-18] MEDS: METOPROLOL TART 50 MG TAB PO SCH ×2 (09:40→20:46)
[2016-04-18] MEDS: FUROSEMIDE 40 MG/4 ML VIAL (J1940) IV SCH ×2 (09:45→16:18)
--- NOTE | 2016-04-18 09:58 | IPN ---
DATE: 04/18/2016 Mrs. Yun tells me that she is feeling much better. Denies any dyspnea, pain in her abdomen. She has no sensation of palpitations. Blood pressure 107/77, heart rate is in the 70s. She is afebrile. Saturation 95% on room air. Fluid balance yesterday was documented slightly positive, but yet her weight is down about a kilogram and a half. She seems to be in good spirits this morning. Her jugular venous pulse (JVP) is not up. Lungs are surprisingly clear to auscultation. Heart exam irregular rhythm, heart rate 85. No murmur or gallop. Abdomen is soft, nontender. No peripheral edema. Laboratory-pérez, potassium was down to 3.3 this morning, BUN 22, creatinine 1.5, GFR 35, glucose 94. CBC: Hemoglobin 12, hematocrit 36 and platelet 174. ASSESSMENT AND PLAN: Mrs. Yun is an 86-year-old lady who comes with persistent atrial fibrillation probably about 2 months duration. It was in setting of nephrolithiasis. Initially, there was a set back with worsening renal function I suspect due to administrated intravenous (IV) contrast. At this point, I would continue rate control and anticoagulation, and also diuretics. Her heart rate has improved markedly and she feels less short of breath as well. I think it is likely that she will be able to go home by tomorrow morning. Tentatively, I will continue anticoagulation for a few weeks and then decide whether we will try to get her back to sinus mechanism. I initially wanted to use amiodarone, but now when I realize that she has hyperthyroidism this is probably problematic. NAOMIE
[2016-04-18 11:38] VITALS: BP 118/82
--- NOTE | 2016-04-18 12:46 | IPNPDOC ---
Text Note Date of Service The patient was seen on 04/18/16. NOTE Subjective: Patient's feels well. Denies chest pain/palpitations/SOB. Ambulating well. Objective: Vitals: (see below) General: No acute distress, laying comfortably in bed. HEENT: Moist mucous membranes. Neck: No JVD or lymphadenopathy Cardiac: Irregularly irregular, No murmurs Pulm: Diminished breath sounds at the bases bilaterally. No wheezing or rhonchi. Abd: NT/ND + BS Ext: Trace edema bilateral lower extremity. No cyanosis. Labs (see below) Images: Echocardiogram 04/16/16 CONCLUSION: 1. Study is of acceptable technical quality. 2. Normal left ventricle (LV) size with low normal LV systolic function based on difficult visualization. 3. Severe biatrial enlargement. 4. Aortic sclerosis resulting in trivial stenosis and mild insufficiency. 5. Moderate approximately mild to moderate tricuspid insufficiency. 6. High central venous pressure and likely moderate pulmonary hypertension. 7. Left pleural effusion. 8. Severe biatrial enlargement. CT abdomen and pelvis on 04/15/16 IMPRESSION: New nodule in the mid left kidney with probable peripheral enhancement measuring 2.5 cm in diameter. This may represent a complex cyst or solid mass. Recommend ultrasound to further evaluate. There are other renal cysts bilaterally unchanged. There is mild left hydroureteronephrosis caused by a 2 mm stone at the left ureterovesical junction. There is a simple appearing cyst at the inferior anterior margin of the pancreatic head which is probably benign. It has slightly increased in size since the 08/11/2013 exam measuring 2.5 cm in diameter, previously 1.7 cm in diameter. Assessment/Plan 1. Atrial fibrillation with rapid ventricular response. Appreciate cardiology input. Patient is on digoxin as well as metoprolol. Cont Eliquis. Cardiac enzymes negative. Echocardiogram (see above) 2. Left hydroureter nephrosis with 2 mm stone - pain has resolved patient likely had some past the stone. Flomax was added. Appreciate urology input. Renal function improving. On Abx by urology. 3. Acute kidney injury on chronic renal insufficiency- creatinine is improving. We'll continue to monitor. Strict I/O. Avoid nephrotoxins. 4. Left kidney mass- urology on board. Will need outpatient follow-up. 5. Pancreatic cyst- will need outpatient monitoring. 6. History of hyperthyroidism- on PTU, continue to monitor 7. Hypertension- controlled continue current meds DVT prophy: Eliquis Plan to d/c in the next 24hrs. VS,Fishbone, I+O VS, Fishbone, I+O Laboratory Tests 04/18/16 05:31 Calcium Level 7.8 L, Red Blood Count 3.64 L, Mean Corpuscular Volume 98.8 H, Mean Corpuscular Hemoglobin 33.0, Mean Corpuscular Hemoglobin Concent 33.3, Red Cell Distribution Width 13.2 Vital Signs Date Time Temp Pulse Resp B/P Pulse Ox O2 Delivery O2 Flow Rate FiO2 04/18/16 11:38 97.0 77 18 118/82 96 Room Air I&O- Last 24 Hours up to 6 AM 04/18/16 06:00 Intake Total 1950 ml Output Total 850 ml Balance 1100 ml BENSON PICKETT MD Apr 18, 2016 12:45
[2016-04-18 15:44] VITALS: BP 130/72
[2016-04-18 20:17] VITALS: BP 128/74
[2016-04-18] MEDS: LORazepam 0.5 MG TAB PO SCH (20:44)
[2016-04-18] MEDS: TAMSULOSIN 0.4 MG CAP PO SCH (20:46)
[2016-04-18 23:59] VITALS: BP 119/73
[2016-04-19] MEDS ORDERED: SLF 3 ML SYR IV PRN (01:30)
[2016-04-19] MEDS: ceFAZolin SOD 1 GM in D5W MINI-BAG PLUS 50 ML IV SCH ×2 (01:50→10:39)
[2016-04-19] MEDS: SLF 3 ML SYR IV SCH ×2 (01:50→14:00)
[2016-04-19 05:35] VITALS: BP 121/60
[2016-04-19 06:11] LABS: MEAN CORPUSCULAR HEMOGLOBIN 32.5 pg (27.0-33.0); MEAN CORPUSCULAR HGB CONC 33.4 g/dl (32.0-36.5); MEAN CORPUSCULAR VOLUME 97.3 fl (80.0-96.0); RED CELL DISTRIBUTION WIDTH 13.1 % (11.5-14.5); WHITE BLOOD COUNT 6.2 K/mm3 (4.0-10.0)
[2016-04-19 06:36] LABS: CALCIUM LEVEL 7.8 MG/DL (8.8-10.2); CREATININE FOR GFR 1.72 MG/DL (0.55-1.02); MAGNESIUM LEVEL 1.6 MG/DL (1.8-2.4); POTASSIUM SERUM 3.7 MEQ/L (3.5-5.1)
[2016-04-19 08:00] VITALS: BP 128/85
--- NOTE | 2016-04-19 08:29 | IPN ---
DATE: 04/19/2016 Mrs. Yun is feeling good and wants to go home today. She remains in atrial fibrillation, heart rate is still mildly tachycardiac during sleep. She is in 70s and 80s, but when she becomes active, she quickly gets into the 120 range, but she has no awareness of palpitations and feels otherwise reasonably well. Vital Signs: Blood pressure is 121/60. Heart rate is from 70s to about 130s as above. Saturation 95% on room air. She is afebrile. Fluid balance yesterday was about 8 negative. Weight 64.1 kg. She is alert and oriented, appropriate. Her jugular venous pulse (JVP) is no longer elevated. Lungs sound clear to auscultation with good air movement. Heart exam irregular rhythm, even sitting at rest, heart rate around 100. I do not appreciate any murmur today. Abdomen soft, nontender. No peripheral edema. Neurologically, she is intact. Laboratory-pérez, basic metabolic panel with potassium 3.7, BUN 27, creatinine 1.7, glucose 108. CBC with hemoglobin 12.9, hematocrit 30 and platelet count 181,000. ASSESSMENT/PLAN: Mrs. Yun is an 86-year-old female who presents with initial urolithiasis and is also found to be in atrial fibrillation with rapid ventricular rate (RVR) and concomitant congestive heart failure. Currently, she is anticoagulated and on 50 mg of Lopressor twice a day and her heart rate is still not optimally controlled. Consequently, I am going to increase the dose to 75 mg twice a day. But, otherwise, I believe that she can be discharged home. Her heart failure seems to be well compensated. I intend to see her in followup next week. In the long run, will decide whether we will attempt latter day of sinus mechanism versus continuation of rate control strategy, depending on her clinical condition.
[2016-04-19] MEDS ORDERED: POTASSIUM CHLORIDE 10 MEQ SR TABLET PO ONE (08:30)
[2016-04-19] MEDS ORDERED: MAG SULF 1GM/100ML (MAG RUN) 1 GM in APPROPRIATE DILUENT 1 EA IV ONE (08:30)
[2016-04-19] MEDS ORDERED: FUROSEMIDE 40 MG TAB PO SCH (09:00)
[2016-04-19] MEDS ORDERED: METOPROLOL TART 25 MG TABLET PO SCH (09:00)
[2016-04-19] MEDS: APIXABAN 2.5 MG TAB (ELIQUIS) PO SCH (09:23)
[2016-04-19] MEDS: PROPYLTHIOURACIL 50 MG TAB PO SCH (09:24)
[2016-04-19] MEDS: ESCITALOPRAM OXALATE 10 MG TAB (LEXAPRO) PO SCH (09:24)
[2016-04-19 09:26] VITALS: BP 128/85
[2016-04-19] MEDS: POLYVINYL ALCOHOL OPHTH SOLN 15 ML(LIQUITEARS) OU SCH (09:27)
[2016-04-19] MEDS: MAGNESIUM CHLORIDE 64 MG TABCR (SLO MAG) PO SCH (09:27)
[2016-04-19 12:00] VITALS: BP 142/56
[2016-04-19 12:14] LABS: CALCIUM LEVEL 7.9 MG/DL (8.8-10.2); CREATININE FOR GFR 1.66 MG/DL (0.55-1.02); GLOMERULAR FILTRATION RATE 31.3 (>32); POTASSIUM SERUM 3.6 MEQ/L (3.5-5.1)
[2016-04-19] MEDS ORDERED: METO25TAB PO (13:02)
[2016-04-19] MEDS ORDERED: LEVA500T PO (13:02)
[2016-04-19] MEDS ORDERED: FURO40TA2 PO (13:02)
[2016-04-19] MEDS ORDERED: FLOM5CAP PO (13:02)
--- NOTE | 2016-04-19 15:48 | DS.PDOC ---
Discharge Summary General Date of Admission Apr 15, 2016 at 13:43 Date of Discharge Attending Physician: BENSON PICKETT MD Specialist/Consultants Involve: Lillian Cristina MD Discharge Summary PROCEDURES PERFORMED DURING STAY: None. ADMITTING/DISCHARGE DIAGNOSES: 1. Atrial fibrillation with rapid ventricular response 2. Left hydroureter nephrosis with 2 mm stone 3. Acute kidney injury on chronic renal insufficiency 4. Left renal mass, which will be followed by urology outpatient 5. Pancreatic cyst which will need outpatient monitoring 6. History of hyperthyroidism on PTU 7. Hypertension 8. Diastolic heart failure COMPLICATIONS/CHIEF COMPLAINT: Atrial Fibrillation With RVR. HISTORY OF PRESENT ILLNESS/HOSPITAL COURSE: . This is a 86-year-old female past medical history of hypertension, hyperthyroidism, CK D stage III baseline creatinine 1.4-1.5 presents complaining of left flank pain and shortness of breath over the past month. Patient was found to have nephrolithiasis as well as a left renal mass, and left hydroureteronephrosis. Patient is followed by urology with recommendations for conservative measures that the patient likely has passed stone given that her symptoms of left flank pain have resolved. Patient was placed on antibiotics. Patient was also found to have this left renal mass which urology will follow up outpatient. Patient also spun to have acute kidney injury which has significantly improved. Patient was also noted to be in acute diastolic heart failure as well as new onset atrial fibrillation with rapid ventricular response. Cardiology was on board and and had her metoprolol as well as Lasix titrated. Patient will be following up with cardiology outpatient. Patient has also been placed on oral anticoagulation. DISCHARGE MEDICATIONS: Please see below. ALLERGIES: Please see below. PHYSICAL EXAMINATION ON DISCHARGE: Vitals: (see below) General: No acute distress, laying comfortably in bed. HEENT: Moist mucous membranes. Neck: No JVD or lymphadenopathy Cardiac: Irregularly irregular, No murmurs Pulm: Diminished breath sounds at the bases bilaterally. No wheezing or rhonchi. Abd: NT/ND + BS Ext: Trace edema bilateral lower extremity. No cyanosis. LABORATORY DATA: Please see below. IMAGING: Echocardiogram 04/16/16 CONCLUSION: 1. Study is of acceptable technical quality. 2. Normal left ventricle (LV) size with low normal LV systolic function based on difficult visualization. 3. Severe biatrial enlargement. 4. Aortic sclerosis resulting in trivial stenosis and mild insufficiency. 5. Moderate approximately mild to moderate tricuspid insufficiency. 6. High central venous pressure and likely moderate pulmonary hypertension. 7. Left pleural effusion. 8. Severe biatrial enlargement. CT Abd/pelvis 04/15/16 IMPRESSION: New nodule in the mid left kidney with probable peripheral enhancement measuring 2.5 cm in diameter. This may represent a complex cyst or solid mass. Recommend ultrasound to further evaluate. There are other renal cysts bilaterally unchanged. There is mild left hydroureteronephrosis caused by a 2 mm stone at the left ureterovesical junction. There is a simple appearing cyst at the inferior anterior margin of the pancreatic head which is probably benign. It has slightly increased in size since the 08/11/2013 exam measuring 2.5 cm in diameter, previously 1.7 cm in diameter. PROGNOSIS: Fair ACTIVITY: As tolerated. DIET: Low Sodium diet DISCHARGE PLAN: D/c home with f/u with PCP, Cardio, Urology. DISPOSITION: Discharged home DISCHARGE INSTRUCTIONS: 1. Follow-up with PCP, urology, Dr. Zhang in 1-2 weeks. DISCHARGE CONDITION: Stable. TIME SPENT ON DISCHARGE: Greater than 30 minutes. Vital Signs/I&Os Vital Signs Date Time Temp Pulse Resp B/P Pulse Ox O2 Delivery O2 Flow Rate FiO2 04/19/16 12:00 96.3 72 18 142/56 98 Room Air I&O- Last 24 Hours up to 6 AM 04/19/16 06:00 Intake Total 570 ml Output Total 1575 ml Balance -1005 ml Laboratory Data Labs 24H Laboratory Tests 2 04/19/16 05:44: Anion Gap 9, Blood Urea Nitrogen 27H, Creatinine 1.72H, Sodium Level 145, Potassium Level 3.7, Chloride Level 106, Carbon Dioxide Level 30, Calcium Level 7.8L, Glomerular Filtration Rate 30.0L, Magnesium Level 1.6L 04/19/16 11:52: Anion Gap 11, Blood Urea Nitrogen 27H, Creatinine 1.66H, Sodium Level 144, Potassium Level 3.6, Chloride Level 103, Carbon Dioxide Level 30, Calcium Level 7.9L, Glomerular Filtration Rate 31.3L CBC/BMP Laboratory Tests 04/19/16 05:44 Calcium Level 7.8 L, Red Blood Count 3.96 L, Mean Corpuscular Volume 97.3 H, Mean Corpuscular Hemoglobin 32.5, Mean Corpuscular Hemoglobin Concent 33.4, Red Cell Distribution Width 13.1 04/19/16 11:52 Calcium Level 7.9 L Microbiology Microbiology 04/18/16 Urine Culture - Final, Complete Discharge Medications Scheduled (Restasis) 0.05 % Emu 1 DROP OU BID (Reported) Apixaban Base (Eliquis) 2.5 Mg Tab 2.5 MG PO BID Escitalopram Oxalate (Lexapro) 10 Mg Tab 10 MG PO DAILY (Reported) Furosemide (Furosemide) 40 Mg Tab 40 MG PO DAILY Levofloxacin Hemihydrate (Levaquin) 500 Mg Tab 500 MG PO DAILY Lorazepam (Ativan) 0.5 Mg Tab 0.25 MG PO QHS (Reported) Magnesium Chloride (Mag64) 64 Mg Tabcr 64 MG PO BID (Reported) Metoprolol Tartrate (Metoprolol Tartrate) 25 Mg Tab 75 MG PO BID Propylthiouracil (Propylthiouracil) 50 Mg Tab 25 MG PO TID (Reported) Tamsulosin Hydrochloride (Flomax) 0.4 Mg Cap 0.4 MG PO QHS Scheduled PRN Acetaminophen (Tylenol) 325 Mg Tab 650 MG PO BID PRN PRN PAIN (Reported) Albuterol Sulfate (Albuterol Sulfate) 2.5 Mg/3 Ml Nebu 2.5 MG INH PRN PRN PRN SHORTNESS OF BREATH (Reported) Allergies Coded Allergies: Sulfa Drugs (Verified Allergy, Unknown, 05/20/12) Sulfa Drugs Cross Reactors (Verified Allergy, Unknown, 05/20/12) BENSON PICKETT MD Apr 19, 2016 15:47
== END 2016-04-19 15:48 | disposition home or self-care (01) | DRG 693 ==
LOC: M ED 08:52 → M ED INP 13:43 → M PCU 15:31
PROVIDERS: ADMIT Internal Medicine; ATTEND Internal Medicine
DX: N13.2 Hydronephrosis with renal and ureteral calculous obstruction (principal); I50.31 Acute diastolic (congestive) heart failure; I13.0 Hypertensive heart and chronic kidney disease with heart failure and stage 1 through stage 4 chronic kidney disease, or unspecified chronic kidney disease; I48.0 Paroxysmal atrial fibrillation; N18.3 Chronic kidney disease, stage 3 (moderate); E05.90 Thyrotoxicosis, unspecified without thyrotoxic crisis or storm; H35.30 Unspecified macular degeneration; I27.2 Other secondary pulmonary hypertension; J45.909 Unspecified asthma, uncomplicated; H40.9 Unspecified glaucoma; N28.1 Cyst of kidney, acquired; N28.89 Other specified disorders of kidney and ureter; Z87.891 Personal history of nicotine dependence; Z90.710 Acquired absence of both cervix and uterus; Z88.2 Allergy status to sulfonamides; Z79.82 Long term (current) use of aspirin; Z79.899 Other long term (current) drug therapy

== ENCOUNTER → 2016-04-25 | Outpatient (REF) | payer MEDICARE ==
[~2016-04-25] MED LIST changes: +ALBU83IN; +ALBU83IN INH; +ASPI1TAB PO; +ELIQ2.5T PO; +FLOM5CAP PO; +FURO40TA2 PO; +LEVA500T PO; +MAGN64TASA PO; +METO25TAB PO; +REST0.05 OU; +TYLE325T5 PO
[2016-05-04 00:09] LABS: Size 4x2x1 mm (.); Uric Acid 100 % (.)
== END ==
LOC: M SMT 16:47
PROVIDERS: ATTEND Nurse Practitioner Women's Health
DX: N28.89 Other specified disorders of kidney and ureter (principal)
CPT/HCPCS: 81001; 82360; 87086; G0463

== ENCOUNTER 2016-06-16 17:23 | Inpatient (IN) | payer MEDICARE ==
[~2016-06-16] VITALS: Ht 154.9 cm; Wt 67.0 kg
[2016-06-16] MEDS ORDERED: SIMB1SUS OU (17:51)
[2016-06-16] MEDS ORDERED: TRAV04OPD OU (17:51)
[2016-06-16] MEDS ORDERED: CARD1TAB5 PO (17:51)
[2016-06-16] MEDS ORDERED: BREO1INH INH (17:51)
[2016-06-16] MEDS ORDERED: LORA-376 PO (17:51)
[2016-06-16] MEDS ORDERED: METO100T PO (17:51)
[2016-06-16] MEDS ORDERED: MORPHINE 2 MG/ML 1ML SYRINGE IV PRN ×2 (18:00→19:30)
[2016-06-16 18:20] LABS: MEAN CORPUSCULAR HEMOGLOBIN 32.1 pg (27.0-33.0); MEAN CORPUSCULAR HGB CONC 32.5 g/dl (32.0-36.5); MEAN CORPUSCULAR VOLUME 99.1 fl (80.0-96.0); RED CELL DISTRIBUTION WIDTH 13.2 % (11.5-14.5); WHITE BLOOD COUNT 5.9 K/mm3 (4.0-10.0)
[2016-06-16 18:24] LABS: PLATELET COUNT, AUTOMATED 201 k/mm3 (150-450)
[2016-06-16 18:25] LABS: BASO % 0.2 % (0.0-1.0); DIFF SLIDE NUMBER 129; EOS # 0.2 K/mm3 (0.0-0.50); EOS % 2.9 % (0.0-3.0); LARGE UNSTAINED CELL # 0.1 K/mm3 (0.0-0.4); LARGE UNSTAINED CELL % 2.3 % (0.0-4.0); LYMPH # 1.6 K/mm3 (1.5-4.5); LYMPH % 26.8 % (24.0-44.0); MONO # 0.3 K/mm3 (0.0-0.8); MONO % 5.4 % (0.0-5.0); NEUTROPHILS # 3.7 K/mm3 (1.8-7.7); NEUTROPHILS % 62.4 % (36.0-66.0)
[2016-06-16 18:26] LABS: INR 1.09
[2016-06-16 18:45] LABS: ALBUMIN 3.3 GM/DL (3.2-5.2); ALBUMIN/GLOBULIN RATIO 0.94 (1.00-1.93); ALKALINE PHOSPHATASE 89 U/L (45-117); ALT/SGPT 18 U/L (12-78); ANION GAP 8 MEQ/L (8-16); AST/SGOT 11 U/L (15-37); BILIRUBIN,DIRECT 0.1 MG/DL (0.0-0.2); BILIRUBIN,TOTAL 0.4 MG/DL (0.2-1.0); BLOOD UREA NITROGEN 28 MG/DL (7-18); CALCIUM LEVEL 7.9 MG/DL (8.8-10.2); CARBON DIOXIDE LEVEL 31 MEQ/L (21-32); CHLORIDE LEVEL 104 MEQ/L (98-107); GLOMERULAR FILTRATION RATE 41.4 (>32); GLUCOSE, FASTING 104 MG/DL (83-110); POTASSIUM SERUM 3.6 MEQ/L (3.5-5.1); SODIUM LEVEL 143 MEQ/L (136-145); T UPTAKE 33 % (30-39); THYROXINE (T4) 10.4 UG/DL (4.5-12.0); TOTAL PROTEIN 6.8 GM/DL (6.4-8.2)
--- NOTE | 2016-06-16 19:00 | REPUSA ---
CT of the head Clinical history: hematoma. Protocol: Multiple axial CT images obtained with 5 mm slice thickness were obtained through the head without administration of contrast. Findings: The ventricles and sulci are symmetric but prominent in size bilaterally. There are periven tricular areas of low attenuation throughout the deep white matter. There is no evidence of acute hem orrhage or infarct. There is no midline shift, mass effect, or extra-axial fluid collection. The osse ous structures are unremarkable. The visualized paranasal sinuses and mastoid air cells are clear. Impression: No acute hemorrhage or infarct. Findings are consistent with age-related atrophy and vocational training instructor marion small vessel ischemic disease.
--- NOTE | 2016-06-16 19:10 | REPUSA ---
CT of the facial bones without contrast Clinical history: Pain, hematoma. Technique: Multiple axial CT images were obtained through the facial bones and paranasal sinuses util izing 3 mm axial slices without administration of contrast. Coronal and sagittal reconstructions were also obtained. Findings: The visualized paranasal sinuses are clear. The osteomeatal complexes are patent bilaterall y. The nasal septum is midline. The visualized mastoid air cells are clear. The osseous structures do not demonstrate any acute abnormalities. The superficial soft tissues are mildly swollen laterally to the left orbit. Impression: No acute fracture. Minimal focal soft tissue swelling lateral to the left orbit in the l eft frontal region.
--- NOTE | 2016-06-16 19:10 | REPUSA ---
CT of the abdomen and pelvis without contrast Clinical statement: Pain, rule hematoma. Technique: Multiple axial CT images were obtained from the base of the lungs to the floor of the pelv is utilizing 5 mm axial slices without administration of contrast. Coronal and sagittal reconstructio ns were also obtained. No comparison is available. Findings: Chest: The visualized lung bases are clear. Abdomen: The kidneys are normal in size bilaterally. Multiple simple cysts are seen within both kidne ys. There is no evidence of hydronephrosis or nephrolithiasis. The liver, spleen, pancreas, gallbladd er and adrenal glands are unremarkable. The aorta demonstrates normal caliber and contour. There is n o abdominal lymphadenopathy or ascites. Pelvis: The bowel is unremarkable, with no obstructive or inflammatory changes. The urinary bladder i s within normal limits. There is no pelvic lymphadenopathy or ascites. A pessary is in place. The oth er pelvic structures appear unremarkable. Bones: There are no suspicious osseous abnormalities seen. Multilevel degenerative disc disease is se en throughout the spine. Impression: 1. No obstructive or inflammatory bowel changes. No acute traumatic abnormalities appreciated. 2. Moderate diffuse spondylosis of the spine. 3. Bilateral simple renal cysts. No evidence of hydronephrosis or nephrolithiasis.
[2016-06-16] MEDS ORDERED: BISACODYL 10 MG SUPP PR PRN (19:30)
[2016-06-16] MEDS ORDERED: ONDANSETRON 4MG/2ML VIAL (J2405) IV PRN (19:30)
[2016-06-16] MEDS ORDERED: ELIQ2.5T PO (20:03)
[2016-06-16] MEDS ORDERED: FURO40TA2 PO (20:03)
[2016-06-16] MEDS: PERCOCET 5MG/325MG TAB PO PRN (20:24)
[2016-06-16] MEDS ORDERED: IPRATROPIUM 0.5MG/ALBUTEROL 2.5MG INH SOL UD 3ML (DUONEB)(J7620) NEB PRN (21:00)
[2016-06-16] MEDS ORDERED: SENOKOT S TAB PO SCH (21:00)
[2016-06-16] MEDS ORDERED: LATANOPROST 0.005% OPHTH SOLN 2.5 ML OU SCH (21:00)
[2016-06-16] MEDS: SYMBICORT 80/4.5MCG INHALER 6GM INH SCH (21:00)
[2016-06-16 22:15] VITALS: BP 175/80
[2016-06-16] MEDS: PROPYLTHIOURACIL 50 MG TAB PO SCH (23:37)
[2016-06-16] MEDS: METOPROLOL TARTRATE 100 MG TAB PO SCH (23:37)
[2016-06-16] MEDS: MAGNESIUM CHLORIDE 64 MG TABCR (SLO MAG) PO SCH (23:38)
[2016-06-16] MEDS: SENOKOT S TAB PO SCH (23:38)
[2016-06-17] MEDS: PERCOCET 5MG/325MG TAB PO PRN ×3 (04:20→18:06)
[2016-06-17 06:00] VITALS: BP 140/85
[2016-06-17 06:10] LABS: BASO % 0.2 % (0.0-1.0); EOS # 0.1 K/mm3 (0.0-0.50); EOS % 0.8 % (0.0-3.0); LARGE UNSTAINED CELL # 0.1 K/mm3 (0.0-0.4); LARGE UNSTAINED CELL % 0.9 % (0.0-4.0); LYMPH # 1.4 K/mm3 (1.5-4.5); LYMPH % 13.5 % (24.0-44.0); MEAN CORPUSCULAR HEMOGLOBIN 32.4 pg (27.0-33.0); MEAN CORPUSCULAR HGB CONC 33.9 g/dl (32.0-36.5); MEAN CORPUSCULAR VOLUME 95.6 fl (80.0-96.0); MONO # 0.5 K/mm3 (0.0-0.8); NEUTROPHILS # 7.5 K/mm3 (1.8-7.7); NEUTROPHILS % 79.5 % (36.0-66.0); PLATELET COUNT, AUTOMATED 195 k/mm3 (150-450); RED CELL DISTRIBUTION WIDTH 13.5 % (11.5-14.5); WHITE BLOOD COUNT 9.5 K/mm3 (4.0-10.0)
[2016-06-17 06:27] LABS: CALCIUM LEVEL 7.9 MG/DL (8.8-10.2); CREATININE FOR GFR 1.25 MG/DL (0.55-1.02); GLOMERULAR FILTRATION RATE 43.4 (>32); POTASSIUM SERUM 3.6 MEQ/L (3.5-5.1)
[2016-06-17] MEDS: SYMBICORT 80/4.5MCG INHALER 6GM INH SCH (07:15)
[2016-06-17] MEDS: MAGNESIUM CHLORIDE 64 MG TABCR (SLO MAG) PO SCH ×2 (09:00→21:51)
[2016-06-17] MEDS ORDERED: FUROSEMIDE 40 MG TAB PO SCH (09:00)
--- NOTE | 2016-06-17 09:24 | REP ---
LEFT HIP: HISTORY: Pain after trauma. COMPARISON: None. There is a nondisplaced fracture involving the base of the left femoral head and seen only on the lateral view. There are degenerative changes. IMPRESSION: Fracture involving the base of the left femoral head, which is nondisplaced and slightly impacted. Signed by Devin Gaviria DO 06/17/2016 09:59 A
--- NOTE | 2016-06-17 09:27 | REP ---
LEFT RIBS, PA CHEST: HISTORY: Pain after a fall. COMPARISON: None. The accompanying frontal view of the chest shows cardiomegaly and no acute cardiopulmonary disease. There is no pneumothorax. There are fibrotic changes, status quo. The bones are demineralized to such a degree, a nondisplaced fracture could be obscured. There is no evidence of a gross rib fracture. The exam is further limited by manager monitoring lead artifact obscuring some of the ribs. IMPRESSION: Limited exam showing no gross fracture. Followup is recommended. Signed by Devin Gaviria DO 06/17/2016 09:59 A
[2016-06-17] MEDS: SENOKOT S TAB PO SCH ×2 (09:28→21:49)
[2016-06-17] MEDS: ESCITALOPRAM OXALATE 10 MG TAB (LEXAPRO) PO SCH (09:28)
[2016-06-17] MEDS: METOPROLOL TARTRATE 100 MG TAB PO SCH ×2 (09:28→22:01)
[2016-06-17] MEDS: PROPYLTHIOURACIL 50 MG TAB PO SCH ×2 (09:28→21:48)
[2016-06-17 14:00] VITALS: BP 111/61
--- NOTE | 2016-06-17 14:44 | ECGEPIP ---
Stationary ECG Study [facility] - ED Test Date: 2016-06-16 Pat Name: YIMI RODAS Department: Room: [place] [address] Gender: F Dog Licenser: sofia : [id number] Requested By: VIRGIL ARMSTRONG Order Number: [id number] Reading MD: Juliet Tiwari Measurements Intervals [place] Rate: 79 P: NE: 0 QRS: 7 QRSD: 107 T: 40 QT: 400 QTc: 460 Interpretive Statements ATRIAL FIBRILLATION ABNORMAL RHYTHM ECG NSTTW ABNORMALITY DECREASED RATE 04/16/16 Electronically Signed On 06-17-2016 14:44:11 EDT by Juliet Tiwari
--- NOTE | 2016-06-17 15:08 | HPE ---
DATE OF ADMISSION: 06/16/2016 PRIMARY CARE PHYSICIAN: Dr. Neal Alvarado CHIEF COMPLAINT: Fall and injury to left side of the body. PAST MEDICAL HISTORY: Atrial fibrillation, on Eliquis. Hypertension. Chronic kidney disease, stage III. Hypothyroidism. Macular degeneration. Glaucoma. Left renal mass. Diastolic heart failure. Pancreatic cyst. History of left hydroureter and hydronephrosis due to ureteric stone. Nephrolithiasis. Depression. HISTORY OF THE PRESENT ILLNESS: This is an 86-year-old female who was in her usual state of health this afternoon. At around 5:00 p.m., she went to open her porch screen door and the handle of the door came off and she flew backwards and landed on her left side, hitting her head, her left side of the face, the left ribs and the left hip. She was unable to get up and was brought to the emergency room. In the emergency department (ED), she was found to have a left femoral neck fracture. She was also noted to have bruising over the left face. She had a CT scan of the head, maxillofacial CT and rib x-rays done. There were no fractures and no intracranial bleed. There was some soft tissue bruising seen. However, the hip x-ray showed a fracture of the neck of femur. The patient was seen by Dr. Thompson from orthopedics; however, the patient being on Eliquis for atrial fibrillation, cannot go for surgery immediately, so the patient is being admitted to the hospitalist service for hip fracture and surgery at a later date. PAST SURGICAL HISTORY: Cholecystectomy. Left inguinal hernia surgery. Thyroid nodule removal. Hysterectomy. Cataract extraction bilaterally. ADDITIONAL MEDICAL HISTORY: Asthma. Irritable bowel syndrome. Renal and ureteric stone. SOCIAL HISTORY: The patient is a former smoker. She quit many years ago. She does not abuse alcohol or recreational drugs. ALLERGIES: To SULFA DRUGS. HOME MEDICATIONS: - metoprolol tartrate 100 mg by mouth twice a day - diltiazem CD 120 mg daily - Eliquis 2.5 mg twice a day - Tylenol 650 mg by mouth twice a day as needed - Lexapro 10 mg by mouth daily - Breo Ellipta 100/25 one puff inhalation daily - Lasix 40 mg by mouth daily - lorazepam 0.5 mg by mouth three times a day as needed for anxiety - magnesium chloride 64 mg by mouth twice a day - propylthiouracil 50 mg by mouth twice a day - Restasis one drop both eyes twice a day - Simbrinza 1-.2% suspension, one drop both eyes twice a day - travoprost Z one drop both eyes at bedtime FAMILY HISTORY: Nothing pertinent. REVIEW OF SYSTEMS: All 10-point review of systems are negative except those mentioned in the history of the present illness (HPI). Patient denied any fever or chills. Denied any cough or phlegm. Denied any abdominal pain, nausea, vomiting or diarrhea. Does have some chest pain but she fell down. Denied any back pain or neck pain. Denied any dysuria or difficulty in urination. PHYSICAL EXAMINATION: VITAL SIGNS: Blood pressure 170/83, pulse 80, respiratory rate 16, pulse oximetry 93% in room air. GENERAL: Patient awake, alert, oriented times three, lying down in bed in no acute distress. HEENT: Normocephalic, atraumatic. Moist mucous membranes. Anicteric eyes. CHEST: Anteriorly clear to auscultation. There is some basal crackles on the left. There is bilateral vesicular breath sounds. CARDIOVASCULAR: S1, S2, irregular. No rub, murmur or gallop. ABDOMEN: Soft, nontender. Bowel sounds normal. EXTREMITIES: No edema. LABORATORY DATA: WBC 5.9, hemoglobin 12.8, platelets 201. Sodium 143, potassium 3.6, chloride 104, bicarbonate 31, BUN 28, creatinine 1.3, glucose 104, lactic acid 1.7, calcium 7.9. Liver function tests are normal. TSH 0.835. INR is 1, APTT is 27.4. Radiology has been reviewed. Abdomen and pelvis CT without contrast showed bilateral simple renal cysts. No evidence of hydronephrosis or nephrolithiasis. There was moderate diffuse spondylosis of the spine. No obstructive, inflammatory or traumatic changes noted. Head CT was negative for any hemorrhage or infarct. There was age-related atrophy and chronic small vessel ischemic disease. Maxillofacial CT showed no acute fracture. There was minimal soft tissue swelling lateral to the left orbit in the left frontal region. Hip x-ray showed left femoral neck fracture. ASSESSMENT AND PLAN: This is an 86-year-old female admitted for a left hip fracture. The patient's pain will be controlled by morphine, oxycodone and Tylenol. The patient's Eliquis has been held. The patient cannot be cleared for surgery at this point. The patient will need at least 72 hours for Eliquis to be out of the system before the patient can go to surgery. The patient's atrial fibrillation rate is reasonably well controlled, and there are no signs of acute congestive heart failure or any signs of acute coronary syndrome ongoing. At this point, will continue the patient's home medications. After 72 hours, the patient can go for surgery. Atrial fibrillation. Will continue rate control with diltiazem and metoprolol. Continue with thromboembolism deterrents (TEDs) and sequentials. Eliquis is on hold. Hypertension. Will continue with diltiazem and metoprolol. Depression. Will continue with Lexapro. Macular degeneration and glaucoma. Will continue with eye drops. Hypothyroidism. Will continue with propylthiouracil. Asthma. Will give the patient Symbicort in the hospital, usually takes Breo Ellipta at home, and will place the patient on albuterol/ipratropium as needed. History of renal cyst versus mass. The patient is following with Dr. Howard as an outpatient. History of nephrolithiasis, ureteric stone and hydronephrosis. It seems that the patient's hydronephrosis has resolved, and it seems that stone has passed, as no stone could be seen in the CT abdomen and pelvis done today. Diastolic congestive heart failure. The patient is clinically in euvolemic state. At present, will continue the patient on Lasix 40 mg daily. Deep vein thrombosis (DVT) prophylaxis has been ordered.
--- NOTE | 2016-06-17 15:57 | CR ---
DATE OF CONSULTATION: 06/16/2016 REASON FOR CONSULTATION: Left femoral neck fracture. HISTORY OF PRESENT ILLNESS: She is an 86-year-old female who took a fall at home, appears a mechanical fall, there was no loss of consciousness, no shortness of breath associated with this, she simply was grabbing a doorknob and the doorknob came off the door, causing her to fall onto her left side. She did strike her head on the left side, but did not lose consciousness and, as mentioned, does not complain of numbness or tingling in the upper or lower extremities, just complaining of isolated soreness in her left hip and some soreness in her left chest wall and the left side of her face. She presented to the emergency room and was evaluated by the emergency room staff and found to have a nondisplaced valgus impacted femoral neck fracture on the left side and she is being admitted to the hospitalist service and I was called to see her for this fracture. PAST MEDICAL HISTORY: 1. She has a relevant history of atrial fibrillation recently diagnosed. 2. History of renal stones. 3. History of hyperthyroidism. 4. Hypertension. 5. Macular degeneration. 6. Chronic renal failure. HOME MEDICATIONS: Include: - Eliquis - albuterol - Tylenol - Lexapro - furosemide - Levaquin - Ativan - magnesium - metoprolol - propylthiouracil - Restasis - Flomax ALLERGIES: SULFA. PAST SURGICAL HISTORY: 1. Cataract extractions. 2. Thyroid cyst excision. 3. Cholecystectomy. 4. Hysterectomy. 5. Left inguinal hernia repair. SOCIAL HISTORY: She is . She is here with her family. She has four children, a daughter and three sons. She does not smoke cigarettes or drink alcohol excessively. She is independent, lives by herself, and is relatively active. Dr. 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 Dr. Neal Alvarado is her primary medical physician. Health survey and review of systems otherwise unremarkable. When I examine her, she is an alert, pleasant female complaining of only isolated soreness of her left hip and left chest wall and left side of her face as described above. Her vital signs show a temperature of 98.4, pulse 93, respirations 18, blood pressure 150/99, oxygen saturation 93% on room air. Her HEENT exam showed some ecchymosis and some tenderness and mild swelling on the left side of her face, just to the left side of her left eye. Her extraocular muscles were grossly normal. Her vision was intact. Neck was nontender. Head was otherwise benign. Chest wall on the left side had some mild tenderness. Abdomen was benign. Upper extremity examination showed full range of motion for shoulders, elbows, wrists and fingers, without obvious trauma or neurologic or vascular compromise. Lower extremity examination she could do a straight leg raise, move her right leg easily, left leg she could actually flex the hip and bend it at the knee, but there was some tenderness into the groin. Internal and external rotation gently done and log rolling really did not cause excessive amount of pain but there was some localized tenderness laterally over the greater trochanter. She had good strong dorsalis pedis pulses distally. Normal motor in her ankles and toes. She could dorsiflex and plantar flex with good strength and with good sensation to light touch on her lower extremities about the ankles and feet. Radiograph of the left hip showed a valgus impacted femoral neck fracture, basically nondisplaced. CT scans of her head and her face did not show any acute fractures. Her white count was 5.9, hematocrit 39.6, her platelet count was 201. Prothrombin time was 14.2 with an INR of 1.09. Sodium 143, potassium 2.6, chloride 104, bicarbonate 31, BUN 28, creatinine 1.3, calcium 7.9, AST 11, ALT 18, troponins were less than 0.02. IMPRESSION: An 86-year-old female who is otherwise an independent ambulator with a valgus impacted left femoral neck fracture who was on Eliquis for atrial fibrillation which is rate controlled presently. She otherwise is in fairly good health. I talked to her and her family members about options for treatment for this type of an injury and typically we do recommend a surgical intervention to help stabilize this fracture to prevent displacement, typically with 2-3 screws. Other alternatives would be a hemiarthroplasty, but this fracture really remains minimally displaced. Nonoperative management is an option, but I told her that that is typically a bit of a risk for displacement and then turning this into a more serious fracture requiring hemiarthroplasty, but that is one of the other options as well. So while going through the different options, she understands and is agreeable and would like to proceed with fixation of the fracture with screw fixation, hemiarthroplasty only if needed, but that does carry the risk of having surgery. The surgical risks would include infection, or damage to nerves or blood vessels, anesthetic complications, phlebitis, embolism, heart attack, , amongst others, which I discussed and she understands as well. She did sign the consent today and she understands that likely anesthesia will require us to delay the surgery a bit to allow the Eliquis effect to wear away, to make it safe for a spinal anesthetic if that is the elected anesthetic preference for her anesthesia. She is being admitted to the hospitalist service and we will discuss this with them in terms of surgical planning time.
--- NOTE | 2016-06-17 19:58 | IPN ---
DATE: 06/17/2016 Patient is seen and examined at the bedside. Chart has been reviewed. This morning, patient rates her pain as 2/10 when she is lying down. She denies any chest pain, pressure, tightness, palpitations, lightheadedness, or dizziness. VITAL SIGNS: Temperature 99, pulse 110, respiratory rate 16, blood pressure 124/80, 94% on 2 liters nasal cannula. GENERAL: Patient is awake, oriented to person and place. HEART: S1, S2, irregularly irregular. ABDOMEN: Soft, nontender, nondistended. EXTREMITIES: No cyanosis or clubbing. Left hip internally rotated, point tenderness. Extremities no pitting edema. White count 9.5, hemoglobin 12, hematocrit 37, platelet count 195. INR 1.09. Sodium 141, potassium 3.6, chloride 106, bicarbonate 27, BUN 26, creatinine 1.25, glucose 135. IMAGING STUDIES: Left hip xray: Fracture involving the base of the left femoral head, nondisplaced, slightly impacted. ASSESSMENT AND PLAN: This is an 86-year-old female with history of atrial fibrillation, chronic kidney disease, macular degeneration, hypertension, hyperthyroidism, on chronic Eliquis, had loss of balance while she was standing and attempting to close the door when the handle fell off and she lost her balance and landed on her left face and left hip. She was found to have a left hip fracture and admitted to the medical service. CURRENT ISSUES: 1. Left hip fracture. Orthopedic surgery has been consulted. Due to Eliquis patient is not medically optimized. Will need to wait 72 hours prior to optimization and proceeding to surgery. 2. Atrial fibrillation. Hold off on anticoagulation due to planned surgery in 72 hours. Continue on Cardizem. Metoprolol for rate control. 3. Depression, on chronic Lexapro. 4. Hyperthyroidism, on propylthiouracil (PTU). 5. Macular degeneration, on Xalatan eye drops. 6. History of chronic obstructive pulmonary disease (COPD), on chronic Symbicort and DuoNebs.
[2016-06-17] MEDS: RESTASIS (PATIENT'S OWN MED) OU SCH (21:52)
[2016-06-17] MEDS: TRAVATAN OU SCH (21:53)
[2016-06-17] MEDS: SIMBRINZA OU SCH (21:54)
[2016-06-17 22:00] VITALS: BP 108/58
[2016-06-17] MEDS: LORazepam 0.5 MG TAB PO PRN (22:07)
[2016-06-18] MEDS: PERCOCET 5MG/325MG TAB PO PRN ×4 (02:40→17:38)
[2016-06-18 06:00] VITALS: BP 115/65
[2016-06-18 06:47] LABS: BASO % 0.4 % (0.0-1.0); EOS # 0.3 K/mm3 (0.0-0.50); EOS % 4.2 % (0.0-3.0); LARGE UNSTAINED CELL # 0.1 K/mm3 (0.0-0.4); LARGE UNSTAINED CELL % 1.9 % (0.0-4.0); LYMPH # 1.3 K/mm3 (1.5-4.5); LYMPH % 17.6 % (24.0-44.0); MEAN CORPUSCULAR HEMOGLOBIN 32.2 pg (27.0-33.0); MEAN CORPUSCULAR HGB CONC 32.5 g/dl (32.0-36.5); MEAN CORPUSCULAR VOLUME 99.1 fl (80.0-96.0); MONO # 0.4 K/mm3 (0.0-0.8); MONO % 5.8 % (0.0-5.0); NEUTROPHILS # 5.3 K/mm3 (1.8-7.7); NEUTROPHILS % 70.1 % (36.0-66.0); PLATELET COUNT, AUTOMATED 179 k/mm3 (150-450); RED CELL DISTRIBUTION WIDTH 13.2 % (11.5-14.5); WHITE BLOOD COUNT 7.5 K/mm3 (4.0-10.0)
[2016-06-18 07:08] LABS: CREATININE FOR GFR 1.77 MG/DL (0.55-1.02); POTASSIUM SERUM 3.5 MEQ/L (3.5-5.1)
[2016-06-18] MEDS: SYMBICORT 80/4.5MCG INHALER 6GM INH SCH ×2 (07:23→20:08)
[2016-06-18] MEDS: MAGNESIUM CHLORIDE 64 MG TABCR (SLO MAG) PO SCH ×2 (09:47→20:52)
[2016-06-18] MEDS: RESTASIS (PATIENT'S OWN MED) OU SCH ×2 (09:48→20:53)
[2016-06-18] MEDS: SIMBRINZA OU SCH ×2 (09:48→20:53)
[2016-06-18] MEDS: PROPYLTHIOURACIL 50 MG TAB PO SCH ×2 (09:48→20:52)
[2016-06-18] MEDS: ESCITALOPRAM OXALATE 10 MG TAB (LEXAPRO) PO SCH (09:48)
[2016-06-18] MEDS: SENOKOT S TAB PO SCH ×2 (09:49→20:52)
[2016-06-18] MEDS: METOPROLOL TARTRATE 100 MG TAB PO SCH ×2 (09:49→20:52)
[2016-06-18] MEDS: NS 1,000 ML IV SCH (09:55)
--- NOTE | 2016-06-18 13:01 | IPNPDOC ---
Subjective Date Seen The patient was seen on 06/18/16. Subjective Chief Complaint/HPI The patient is a 86-year-old female admitted with a reason for visit of Hip Fracture. Events since last encounter Patient was seen this morning at bedside. She reports that hip pain is stable. She reports that while she was trying to pull a door shut, the handle broke, she fell backwards onto her left side. No acute overnight issues. She denies any chest pain/pressure, SOB, lightheadedness, dizziness, nausea, vomiting, fever, chills, abd pain or diarrhea. Objective Physical Examination General Exam: Positive: Alert, Cooperative, No Acute Distress Eye Exam: Positive: Conjunctiva & lids normal, EOMI, Negative: Sclera icteric ENT Exam: Positive: Mucous membr. moist/pink, Pharynx Normal Neck Exam: Positive: Supple, Negative: thyromegaly Chest Exam: Positive: Clear to auscultation, Normal air movement Heart Exam: Positive: Tachycardic, Irregular Rhythm Abdomen Exam: Positive: Normal bowel sounds, Soft, Negative: Tenderness Extremity Exam: Positive: Normal pulses, Tenderness (mild tenderness at left lateral thigh), Negative: Cyanosis, Edema Skin Exam: Positive: Nl turgor and temperature, Negative: Rash Neuro Exam: Positive: Normal Speech, Cranial Nerves 3-12 NL Psych Exam: Positive: Mental status NL, Mood NL, Oriented x 3 Assessment /Plan Problems (1) Hip fracture Status: Acute Problem Text: * Status post fall * Will be taken to OR tomorrow * Continue with pain control (2) Acute renal failure superimposed on chronic kidney disease Status: Acute Problem Text: * Lasix has been discontinued * Placed on NS @ 60cc/hr * Will repeat BMP this afternoon to monitor for improvement in renal function with IV hydration * Will check PVR to rule out retention (3) Atrial fibrillation Status: Chronic Problem Text: * Monitor for increased heart rate * Continue Metoprolol 100mg BID and Cardizem 120mg daily * Eliquis on hold for surgical procedure tomorrow (4) Hypertension Onset Date: 08/09/2013 Status: Chronic Problem Text: * BP stable * Continue metoprolol and cardizem (5) Diastolic CHF, chronic Status: Chronic Problem Text: * Appears compensated at this time * Lasix dc'ed due to worsening renal function (6) Hyperthyroidism Status: Chronic Problem Text: * Continue PTU (7) Asthma Status: Chronic Problem Text: * Continue Symbicort and albuterol prn (8) Anxiety and depression Onset Date: 08/09/2013 Status: Chronic Problem Text: * Continue Lexapro and Ativan Plan/VTE VTE Prophylaxis Ordered?: Yes (teds/seq) VS, I&O, 24H, Fishbone Vital Signs/I&O Vital Signs Date Time Temp Pulse Resp B/P (MAP) Pulse Ox O2 Delivery O2 Flow Rate FiO2 06/18/16 12:26 18 06/18/16 09:49 111 115/65 06/18/16 09:00 Nasal Cannula 2.0 06/18/16 06:47 95 06/18/16 06:00 98.7 I&O- Last 24 Hours up to 6 AM 06/18/16 06:00 Intake Total 720 ml Output Total 200 ml Balance 520 ml Laboratory Data CBC/BMP Laboratory Tests 06/18/16 06:20 Red Blood Count 3.83 L, Mean Corpuscular Volume 99.1 H, Mean Corpuscular Hemoglobin 32.2, Mean Corpuscular Hemoglobin Concent 32.5, Red Cell Distribution Width 13.2, Neutrophils (%) (Auto) 70.1 H, Lymphocytes (%) (Auto) 17.6 L, Monocytes (%) (Auto) 5.8 H, Eosinophils (%) (Auto) 4.2 H, Basophils (%) (Auto) 0.4, Neutrophils # (Auto) 5.3, Lymphocytes # (Auto) 1.3 L, Monocytes # ( Auto) 0.4, Eosinophils # (Auto) 0.3, Basophils # (Auto) 0.0, Calcium Level 8.0 L GME ATTESTATION GME ATTESTATION My preceptor for this patient encounter was physically present in the building during the encounter and was fully available. As needed, all aspects of the patient interview, examination, medical decision making process, and medical care plan development were reviewed and approved by the preceptor. Preceptor is aware and concurs with the plan as stated in the body of this note and will attest to such by his/her cosignature. ROYAL FLEMING DO June 18, 2016 13:01
[2016-06-18 14:00] VITALS: BP 104/68
[2016-06-18 16:25] LABS: CALCIUM LEVEL 7.9 MG/DL (8.8-10.2); CREATININE FOR GFR 1.91 MG/DL (0.55-1.02); GLOMERULAR FILTRATION RATE 26.6 (>32); POTASSIUM SERUM 3.5 MEQ/L (3.5-5.1)
[2016-06-18] MEDS: TRAVATAN OU SCH (20:53)
[2016-06-18] MEDS: LORazepam 0.5 MG TAB PO PRN (21:05)
[2016-06-18 22:00] VITALS: BP 119/72
[2016-06-19] VITALS (7 sets, daily range): BP systolic 91–151; BP diastolic 59–95
[2016-06-19] MEDS: NS 1,000 ML IV SCH (00:55)
[2016-06-19] MEDS: PERCOCET 5MG/325MG TAB PO PRN ×2 (02:34→20:35)
[2016-06-19 06:57] LABS: BASO % 0.2 % (0.0-1.0); EOS # 0.2 K/mm3 (0.0-0.50); EOS % 2.7 % (0.0-3.0); LARGE UNSTAINED CELL # 0.1 K/mm3 (0.0-0.4); LARGE UNSTAINED CELL % 1.6 % (0.0-4.0); LYMPH # 1.3 K/mm3 (1.5-4.5); MEAN CORPUSCULAR HEMOGLOBIN 32.3 pg (27.0-33.0); MEAN CORPUSCULAR HGB CONC 32.7 g/dl (32.0-36.5); MEAN CORPUSCULAR VOLUME 98.9 fl (80.0-96.0); MONO # 0.4 K/mm3 (0.0-0.8); MONO % 4.2 % (0.0-5.0); NEUTROPHILS # 6.7 K/mm3 (1.8-7.7); NEUTROPHILS % 76.3 % (36.0-66.0); PLATELET COUNT, AUTOMATED 141 k/mm3 (150-450); RED CELL DISTRIBUTION WIDTH 13.2 % (11.5-14.5); WHITE BLOOD COUNT 8.8 K/mm3 (4.0-10.0)
[2016-06-19 07:19] LABS: CALCIUM LEVEL 7.7 MG/DL (8.8-10.2); CREATININE FOR GFR 1.61 MG/DL (0.55-1.02); GLOMERULAR FILTRATION RATE 32.4 (>32); MAGNESIUM LEVEL 2.1 MG/DL (1.8-2.4); POTASSIUM SERUM 3.6 MEQ/L (3.5-5.1)
[2016-06-19] MEDS: SYMBICORT 80/4.5MCG INHALER 6GM INH SCH ×2 (07:47→21:00)
[2016-06-19] MEDS: ESCITALOPRAM OXALATE 10 MG TAB (LEXAPRO) PO SCH (09:00)
[2016-06-19] MEDS: SENOKOT S TAB PO SCH ×2 (09:00→20:35)
[2016-06-19] MEDS: MAGNESIUM CHLORIDE 64 MG TABCR (SLO MAG) PO SCH ×2 (09:00→20:36)
[2016-06-19] MEDS: PROPYLTHIOURACIL 50 MG TAB PO SCH ×2 (09:00→20:35)
[2016-06-19] MEDS: SIMBRINZA OU SCH ×2 (11:02→20:36)
[2016-06-19] MEDS: RESTASIS (PATIENT'S OWN MED) OU SCH ×2 (11:03→20:36)
--- NOTE | 2016-06-19 11:17 | REP ---
Bilateral lower extremity Duplex Doppler venous ultrasound: Real time compression and duplex Doppler interrogation of the bilateral lower extremity deep venous system is performed. Bilaterally, the common femoral, superficial femoral and popliteal veins are fully compressible with transducer pressure and demonstrate normal spontaneous and phasic flow, without evidence of deep venous thrombosis. Impression: No evidence of deep venous thrombosis of the bilateral lower extremity femoral popliteal venous system. Signed by Kmaari Causey MD 06/19/2016 11:09 A
[2016-06-19] MEDS: METOPROLOL TARTRATE 100 MG TAB PO SCH ×2 (11:41→20:35)
--- NOTE | 2016-06-19 12:03 | IPNPDOC ---
Subjective Date Seen The patient was seen on 06/19/16. Subjective Chief Complaint/HPI The patient is a 86-year-old female admitted with a reason for visit of Hip Fracture. Events since last encounter Patient was seen this morning at bedside. No acute overnight events. She remains on 2 liter O2. She denies any chest pain/pressure or increased SOB. No lightheadedness or dizziness. She is afebrile and vitals are stable. Blood pressure is however on the soft side. Objective Physical Examination General Exam: Positive: Alert, Cooperative, No Acute Distress Eye Exam: Positive: Conjunctiva & lids normal, EOMI, Negative: Sclera icteric ENT Exam: Positive: Mucous membr. moist/pink, Pharynx Normal Neck Exam: Positive: Supple, Negative: thyromegaly Chest Exam: Positive: Clear to auscultation, Normal air movement Heart Exam: Positive: Rate Normal, Irregular Rhythm Abdomen Exam: Positive: Normal bowel sounds, Soft, Negative: Tenderness Extremity Exam: Positive: Normal pulses, Negative: Cyanosis, Edema Skin Exam: Positive: Nl turgor and temperature, Negative: Rash Neuro Exam: Positive: Normal Speech, Cranial Nerves 3-12 NL Psych Exam: Positive: Mental status NL, Mood NL, Oriented x 3 Assessment /Plan Problems (1) Hip fracture Status: Acute Problem Text: * Status post fall * Patient is of moderate risk for perioperative complications based on requirement of supplemental O2, older age, history of congestive heart failure, atrial fibrillation, chronic kidney disease. Patient is currently requiring oxygen which she does not use at home. CXR done earlier revealed cardiomegaly and atelectasis, no acute findings. Ultrasound of lower extremity was negative bilaterally. Blood pressure is soft but stable. Heart rate is currently stable. Beta gonsalo was administered with anesthesia being aware. She denies any angina , dyspnea, lightheadedness or dizziness. Patient is medically optimized to proceed with orthopedic surgery. Will nee to be monitored closely post op. * Pain meds and DVT prophylaxis per ortho post op (2) Acute renal failure superimposed on chronic kidney disease Status: Acute Problem Text: * Lasix has been discontinued due to worsening renal function * Was treated with NS, which has now been discontinued * Will continue to monitor renal function * Baseline creatinine of about 1.4 (3) Atrial fibrillation Status: Chronic Problem Text: * Monitor for uncontrolled rate * She received metoprolol this morning, Cardizem held due to soft BP * Eliquis was held for surgical procedure today (4) Hypertension Onset Date: 08/09/2013 Status: Chronic Problem Text: * BP soft this morning * Will hold cardizem, she received metoprolol prior to surgery (5) Diastolic CHF, chronic Status: Chronic Problem Text: * Appears stable * Lasix dc'ed due to worsening renal function (6) Hyperthyroidism Status: Chronic Problem Text: * Continue PTU (7) Asthma Status: Chronic Problem Text: * Continue Symbicort and albuterol prn (8) Anxiety and depression Onset Date: 08/09/2013 Status: Chronic Problem Text: * Continue Lexapro and Ativan Plan/VTE VTE Prophylaxis Ordered?: Yes (teds/seq) VS, I&O, 24H, Fishbone Vital Signs/I&O Vital Signs Date Time Temp Pulse Resp B/P (MAP) Pulse Ox O2 Delivery O2 Flow Rate FiO2 06/19/16 11:23 Nasal Cannula 2.0 06/19/16 09:06 97.9 92 19 112/81 (91) 97 I&O- Last 24 Hours up to 6 AM 06/19/16 06:00 Intake Total 840 ml Output Total 250 ml Balance 590 ml Laboratory Data CBC/BMP Laboratory Tests 06/18/16 15:48 Calcium Level 7.9 L 06/19/16 06:25 Calcium Level 7.7 L 06/19/16 06:26 Red Blood Count 3.54 L, Mean Corpuscular Volume 98.9 H, Mean Corpuscular Hemoglobin 32.3, Mean Corpuscular Hemoglobin Concent 32.7, Red Cell Distribution Width 13.2, Neutrophils (%) (Auto) 76.3 H, Lymphocytes (%) (Auto) 15.0 L, Monocytes (%) (Auto) 4.2, Eosinophils (%) (Auto) 2.7, Basophils (%) ( Auto) 0.2, Neutrophils # (Auto) 6.7, Lymphocytes # (Auto) 1.3 L, Monocytes # ( Auto) 0.4, Eosinophils # (Auto) 0.2, Basophils # (Auto) 0.0 GME ATTESTATION GME ATTESTATION My preceptor for this patient encounter was physically present in the building during the encounter and was fully available. As needed, all aspects of the patient interview, examination, medical decision making process, and medical care plan development were reviewed and approved by the preceptor. Preceptor is aware and concurs with the plan as stated in the body of this note and will attest to such by his/her cosignature. ROYAL FLEMING DO June 19, 2016 12:03
[2016-06-19] MEDS ORDERED: BUPIVACAINE/EPIN 0.25% 30 ML VIAL As Ordered ONE (15:33)
[2016-06-19] MEDS ORDERED: ceFAZolin 1GM INJ (J0690) As Ordered ONE (15:33)
[2016-06-19] MEDS ORDERED: ceFAZolin 2 GM/D5W 50 ML IV BAG (J0690) As Ordered ONE (16:11)
[2016-06-19] MEDS ORDERED: HYDROmorphone HCL 1 MG/ML SYRINGE (J1170) As Ordered ONE (17:46)
[2016-06-19] MEDS: HYDROmorphone HCL 1 MG/ML SYRINGE (J1170) IV PRN ×2 (17:53→17:59)
[2016-06-19] MEDS ORDERED: fentaNYL 100 MCG/2 ML INJECTION (J3010) IV PRN (18:00)
[2016-06-19] MEDS ORDERED: LR 1,000 ML IV SCH (18:00)
[2016-06-19] MEDS ORDERED: ONDANSETRON 4MG/2ML VIAL (J2405) IV PRN (18:00)
[2016-06-19] MEDS ORDERED: PERCOCET 5MG/325MG TAB PO PRN (18:00)
[2016-06-19] MEDS: LORazepam 0.5 MG TAB PO PRN (20:35)
[2016-06-19] MEDS: TRAVATAN OU SCH (20:36)
[2016-06-20 02:00] VITALS: BP 128/80
[2016-06-20] MEDS: PERCOCET 5MG/325MG TAB PO PRN ×4 (02:50→21:04)
[2016-06-20 06:00] VITALS: BP 123/63
[2016-06-20 06:50] LABS: BASO % 0.2 % (0.0-1.0); EOS # 0.3 K/mm3 (0.0-0.50); LARGE UNSTAINED CELL # 0.2 K/mm3 (0.0-0.4); LARGE UNSTAINED CELL % 1.6 % (0.0-4.0); LYMPH # 1.1 K/mm3 (1.5-4.5); LYMPH % 10.6 % (24.0-44.0); MEAN CORPUSCULAR HEMOGLOBIN 32.1 pg (27.0-33.0); MEAN CORPUSCULAR HGB CONC 33.1 g/dl (32.0-36.5); MEAN CORPUSCULAR VOLUME 96.9 fl (80.0-96.0); MONO # 0.5 K/mm3 (0.0-0.8); MONO % 5.6 % (0.0-5.0); NEUTROPHILS % 78.9 % (36.0-66.0); PLATELET COUNT, AUTOMATED 155 k/mm3 (150-450); RED CELL DISTRIBUTION WIDTH 13.2 % (11.5-14.5); WHITE BLOOD COUNT 8.9 K/mm3 (4.0-10.0)
[2016-06-20 07:00] LABS: CALCIUM LEVEL 7.6 MG/DL (8.8-10.2); CREATININE FOR GFR 1.44 MG/DL (0.55-1.02); GLOMERULAR FILTRATION RATE 36.8 (>32); MAGNESIUM LEVEL 2.2 MG/DL (1.8-2.4); POTASSIUM SERUM 3.6 MEQ/L (3.5-5.1)
[2016-06-20] MEDS: SYMBICORT 80/4.5MCG INHALER 6GM INH SCH (07:37)
--- NOTE | 2016-06-20 07:42 | REP ---
AP LATERAL LEFT HIP C-ARM: 06/19/2016. Comparison 06/16/2016, acute fracture series. There are three threaded femoral screws extending into the femoral head but not beyond the articular cortex of the femoral head with slight impacted fracture of the femoral neck and head junction is seen. This subcapital fracture alignment is unchanged. There is no subluxation or dislocation or other finding. Fluoroscopy time 48 seconds. Signed by Jordan Toro MD 06/20/2016 05:15 P
--- NOTE | 2016-06-20 08:46 | IPNPDOC ---
Subjective Date Seen The patient was seen on 06/20/16. Subjective Chief Complaint/HPI The patient is a 86-year-old female admitted with a reason for visit of Hip Fracture. Events since last encounter Patient was seen this morning at bedside. No acute overnight events. She has some pain in the left hip, appropriate post op. Attempted to wean O2 yesterday, wasn't able to get her off but down to 1L. She denies any chest pain/pressure or SOB. No lightheadedness or dizziness. She is afebrile and vitals are stable. No nausea, vomiting, abd pain. No bowel movement yet. Objective Physical Examination General Exam: Positive: Alert, Cooperative, No Acute Distress Eye Exam: Positive: Conjunctiva & lids normal, EOMI, Negative: Sclera icteric ENT Exam: Positive: Mucous membr. moist/pink, Pharynx Normal Neck Exam: Positive: Supple, Negative: thyromegaly Chest Exam: Positive: Clear to auscultation, Normal air movement Heart Exam: Positive: Tachycardic, Irregular Rhythm Abdomen Exam: Positive: Normal bowel sounds, Soft, Negative: Tenderness Extremity Exam: Positive: Normal pulses, Tenderness (left hip tenderness), Negative: Cyanosis, Edema Skin Exam: Positive: Nl turgor and temperature, Negative: Rash Neuro Exam: Positive: Normal Speech, Cranial Nerves 3-12 NL Psych Exam: Positive: Mental status NL Assessment /Plan Problems (1) Hip fracture Status: Acute Problem Text: * Status post fall * Patient is status post left hip repair on 06/19. * Pain meds and DVT prophylaxis per ortho * PMR screen in place (2) Acute renal failure superimposed on chronic kidney disease Status: Acute Problem Text: * Renal function is now around baseline * Will resume Lasix upon discharge to PMR (3) Atrial fibrillation Status: Chronic Problem Text: * Takes metoprolol 100mg BID and Cardizem 120 daily for rate control * Cardizem was held yesterday due to soft blood pressure * Continue meds with hold parameters * Eliquis was held for surgical procedure (4) Hypertension Onset Date: 08/09/2013 Status: Chronic Problem Text: * Continue to monitor BP * Metoprolol and cardizem with hold parameters (5) Diastolic CHF, chronic Status: Chronic Problem Text: * Appears stable * Lasix dc'ed due to worsening renal function, renal function back to baseline * Will resume on discharge to PMR (6) Hyperthyroidism Status: Chronic Problem Text: * Continue PTU (7) Asthma Status: Chronic Problem Text: * Continue Symbicort and albuterol prn (8) Anxiety and depression Onset Date: 08/09/2013 Status: Chronic Problem Text: * Continue Lexapro and Ativan Plan/VTE VTE Prophylaxis Ordered?: Yes (teds/seq) VS, I&O, 24H, Fishbone Vital Signs/I&O Vital Signs Date Time Temp Pulse Resp B/P (MAP) Pulse Ox O2 Delivery O2 Flow Rate FiO2 06/20/16 06:00 98.7 107 14 123/63 (83) 94 Nasal Cannula 1.0 I&O- Last 24 Hours up to 6 AM 06/20/16 06:00 Intake Total 605 ml Output Total 650 ml Balance -45 ml Laboratory Data CBC/BMP Laboratory Tests 06/20/16 06:28 Red Blood Count 3.45 L, Mean Corpuscular Volume 96.9 H, Mean Corpuscular Hemoglobin 32.1, Mean Corpuscular Hemoglobin Concent 33.1, Red Cell Distribution Width 13.2, Neutrophils (%) (Auto) 78.9 H, Lymphocytes (%) (Auto) 10.6 L, Monocytes (%) (Auto) 5.6 H, Eosinophils (%) (Auto) 3.0, Basophils (%) ( Auto) 0.2, Neutrophils # (Auto) 7.0, Lymphocytes # (Auto) 1.1 L, Monocytes # ( Auto) 0.5, Eosinophils # (Auto) 0.3, Basophils # (Auto) 0.0, Calcium Level 7.6 L GME ATTESTATION GME ATTESTATION My preceptor for this patient encounter was physically present in the building during the encounter and was fully available. As needed, all aspects of the patient interview, examination, medical decision making process, and medical care plan development were reviewed and approved by the preceptor. Preceptor is aware and concurs with the plan as stated in the body of this note and will attest to such by his/her cosignature. ROYAL FLEMING DO June 20, 2016 08:46
[2016-06-20] MEDS: SIMBRINZA OU SCH ×2 (08:57→21:04)
[2016-06-20] MEDS: RESTASIS (PATIENT'S OWN MED) OU SCH ×2 (08:57→21:04)
[2016-06-20] MEDS: ESCITALOPRAM OXALATE 10 MG TAB (LEXAPRO) PO SCH (08:58)
[2016-06-20] MEDS: SENOKOT S TAB PO SCH ×2 (08:58→21:03)
[2016-06-20] MEDS: METOPROLOL TARTRATE 100 MG TAB PO SCH ×2 (08:59→21:03)
[2016-06-20] MEDS: PROPYLTHIOURACIL 50 MG TAB PO SCH ×2 (08:59→21:03)
[2016-06-20] MEDS: MAGNESIUM CHLORIDE 64 MG TABCR (SLO MAG) PO SCH ×2 (08:59→21:04)
[2016-06-20] MEDS: BREO ELLIPTA INH SCH (09:00)
[2016-06-20 10:00] VITALS: BP 129/69
--- NOTE | 2016-06-20 11:47 | REP ---
Left hip series: Two views. History: Postop evaluation. Comparison study June 16, 2016. Findings: Three metallic screws are seen pinning the subcapital fracture of the left hip in position unchanged. Lateral skin radames, soft tissue swelling, and postoperative soft tissue emphysema are seen. The femoral head screws are subcortical on both views. Signed by See Venegas MD 06/20/2016 04:33 P
--- NOTE | 2016-06-20 11:50 | REP ---
CHEST X-RAY: Two views. HISTORY: Hypoxia. Chest x-ray obtained at 8:33 a.m. and just now presented for interpretation. Comparison radiographs are from June 16, 2016. FINDINGS: Moderate cardiomegaly is observed unchanged. There is evidence of left atrial enlargement. The aorta is tortuous and mildly calcific as before. No free pleural effusion is seen. There is mild bibasilar plate-like atelectasis. Pulmonary vasculature is not increased. IMPRESSION: Cardiomegaly and mild bibasilar plate-like atelectasis. No acute infiltrate. Signed by See Venegas MD 06/20/2016 04:33 P
--- NOTE | 2016-06-20 12:30 | RO ---
DATE OF PROCEDURE: 06/19/2016 PREPROCEDURE DIAGNOSIS: Valgus impacted left femoral neck fracture. POSTPROCEDURE DIAGNOSIS: Valgus impacted left femoral neck fracture. PROCEDURE: Left femoral neck fracture percutaneous pinning with 7.3 cannulated screws. SURGEON: Dr. Reza Thompson [employer]: ANESTHESIA: Spinal. COMPLICATIONS: None. ESTIMATED BLOOD LOSS: Less than 20 mL. SPECIMENS: None. DESCRIPTION OF PROCEDURE: Antibiotics were given intravenously preoperatively and a successful spinal anesthetic was induced. She was placed on the fracture table and then once she is appropriately placed, fluoroscopic imaging confirmed that the fracture was still valgus impacted and has not displaced. Thus at this point, we prepped and then draped in the usual sterile fashion and after appropriate time out, under fluoroscopic guidance, I made about 1.5 inch incision laterally. Bovie cautery was used to coagulate vessels to the tensor fascia. Tensor fascia was then divided and the cylindrical drill guide for the 7.3 cannulated screws was placed and then I placed three threaded guide pins for the 7.3 cannulated screw set attempting to make it into a triangular pattern placing two screws inferiorly spaced in the anterior to posterior plane. We checked under fluoroscopy to be sure they were appropriately length, and then I placed an apex screw just above that superiorly attempting to triangulate this and bisect the anterior posterior screws. Once I was satisfied with the guide pin position under fluoroscopic imaging, I then measured and then martínez and then hand placed each individual screw. It made actually surprisingly good purchase. The superior screw that I placed, however, was short and I switched that out from a 75 to an 80 mm screw. Fluoroscopic imaging AP and lateral planes confirmed we had good position of the hardware and I used the small threaded screws to increase the chances that all the threads were across the fracture site. I thin copiously irrigated the wound, closed the tensor fascia with interrupted #1 PDS suture, irrigated it again, closed the deep subdermal tissues with interrupted #2-0 PDS suture, skin was closed with radames covered by Adaptic dry sterile bulky dressing. She was then transferred off the fracture table to her bed and then to the recovery room in stable condition. There were no intraoperative complications.
[2016-06-20 14:00] VITALS: BP 127/87
[2016-06-20] MEDS: TRAVATAN OU SCH (21:05)
[2016-06-20] MEDS: LORazepam 0.5 MG TAB PO PRN (21:11)
[2016-06-20 22:00] VITALS: BP 115/79
[2016-06-21 06:04] VITALS: BP 116/72
[2016-06-21 07:03] LABS: BASO % 0.8 % (0.0-1.0); EOS # 0.3 K/mm3 (0.0-0.50); EOS % 4.9 % (0.0-3.0); LARGE UNSTAINED CELL # 0.2 K/mm3 (0.0-0.4); LARGE UNSTAINED CELL % 2.2 % (0.0-4.0); LYMPH % 12.3 % (24.0-44.0); MEAN CORPUSCULAR HEMOGLOBIN 31.9 pg (27.0-33.0); MEAN CORPUSCULAR HGB CONC 32.9 g/dl (32.0-36.5); MEAN CORPUSCULAR VOLUME 96.9 fl (80.0-96.0); MONO # 0.5 K/mm3 (0.0-0.8); MONO % 7.3 % (0.0-5.0); NEUTROPHILS # 4.7 K/mm3 (1.8-7.7); NEUTROPHILS % 72.4 % (36.0-66.0); PLATELET COUNT, AUTOMATED 163 k/mm3 (150-450); RED CELL DISTRIBUTION WIDTH 13.4 % (11.5-14.5); WHITE BLOOD COUNT 6.6 K/mm3 (4.0-10.0)
[2016-06-21 07:18] LABS: CALCIUM LEVEL 8.1 MG/DL (8.8-10.2); CREATININE FOR GFR 1.38 MG/DL (0.55-1.02); GLOMERULAR FILTRATION RATE 38.7 (>32); MAGNESIUM LEVEL 2.3 MG/DL (1.8-2.4); POTASSIUM SERUM 3.5 MEQ/L (3.5-5.1)
[2016-06-21] MEDS: PERCOCET 5MG/325MG TAB PO PRN ×3 (08:06→20:51)
[2016-06-21 08:26] VITALS: BP 124/86
[2016-06-21] MEDS: SIMBRINZA OU SCH ×2 (09:00→20:53)
[2016-06-21] MEDS: BREO ELLIPTA INH SCH (09:04)
--- NOTE | 2016-06-21 09:24 | IPNPDOC ---
Subjective Date Seen The patient was seen on 06/21/16. Subjective Chief Complaint/HPI The patient is a 86-year-old female admitted with a reason for visit of Hip Fracture. Events since last encounter Patient was seen this morning at bedside. Hip pain is controlled. She denies any chest pain/pressure, increased shortness of breath, nausea, vomiting, lightheadedness, dizziness. She has had a bowel movement. She remains on supplemental oxygen and will try to wean her off of this. Objective Physical Examination General Exam: Positive: Alert, Cooperative, No Acute Distress Eye Exam: Positive: Conjunctiva & lids normal, EOMI, Negative: Sclera icteric ENT Exam: Positive: Mucous membr. moist/pink, Pharynx Normal Neck Exam: Positive: Supple, Negative: thyromegaly Chest Exam: Positive: Clear to auscultation, Normal air movement Heart Exam: Positive: Tachycardic, Irregular Rhythm Abdomen Exam: Positive: Normal bowel sounds, Soft, Negative: Tenderness Extremity Exam: Positive: Edema (minimal at the left hip), Normal pulses, Tenderness (left hip tenderness), Negative: Cyanosis Skin Exam: Positive: Nl turgor and temperature, Negative: Rash Neuro Exam: Positive: Normal Speech, Cranial Nerves 3-12 NL Psych Exam: Positive: Mental status NL Assessment /Plan Problems (1) Hip fracture Status: Acute Problem Text: * Status post fall * Patient is status post left hip repair on 06/19. * Pain meds and DVT prophylaxis per ortho * Per ortho recommendations, she should be partial weight bearing and she can follow up with them in a couple weeks * Awaiting to see if [facility] with accept patient for rehab (2) Acute renal failure superimposed on chronic kidney disease Status: Acute Problem Text: * Renal function is around baseline * Lasix was held due to worsening renal function (3) Atrial fibrillation Status: Chronic Problem Text: * Takes metoprolol 100mg BID and Cardizem 120 daily for rate control * Continue meds with hold parameters * Eliquis has been resumed (4) Hypertension Onset Date: 08/09/2013 Status: Chronic Problem Text: * Continue to monitor BP * Metoprolol and cardizem with hold parameters (5) Diastolic CHF, chronic Status: Chronic Problem Text: * Appears compensated at this time (6) Hyperthyroidism Status: Chronic Problem Text: * Continue PTU (7) Asthma Status: Chronic Problem Text: * Continue Breo and albuterol prn (8) Anxiety and depression Onset Date: 08/09/2013 Status: Chronic Problem Text: * Continue Lexapro and Ativan Plan/VTE VTE Prophylaxis Ordered?: Yes (eliquis) VS, I&O, 24H, Fishbone Vital Signs/I&O Vital Signs Date Time Temp Pulse Resp B/P (MAP) Pulse Ox O2 Delivery O2 Flow Rate FiO2 06/21/16 09:05 18 06/21/16 08:26 97.8 103 124/86 (99) 93 Room Air 06/21/16 06:04 1.0 I&O- Last 24 Hours up to 6 AM 06/21/16 06:00 Intake Total 360 ml Output Total 0 ml Balance 360 ml Laboratory Data CBC/BMP Laboratory Tests 06/21/16 06:47 Red Blood Count 3.39 L, Mean Corpuscular Volume 96.9 H, Mean Corpuscular Hemoglobin 31.9, Mean Corpuscular Hemoglobin Concent 32.9, Red Cell Distribution Width 13.4, Neutrophils (%) (Auto) 72.4 H, Lymphocytes (%) (Auto) 12.3 L, Monocytes (%) (Auto) 7.3 H, Eosinophils (%) (Auto) 4.9 H, Basophils (%) (Auto) 0.8, Neutrophils # (Auto) 4.7, Lymphocytes # (Auto) 1.0 L, Monocytes # ( Auto) 0.5, Eosinophils # (Auto) 0.3, Basophils # (Auto) 0.0, Calcium Level 8.1 L GME ATTESTATION GME ATTESTATION My preceptor for this patient encounter was physically present in the building during the encounter and was fully available. As needed, all aspects of the patient interview, examination, medical decision making process, and medical care plan development were reviewed and approved by the preceptor. Preceptor is aware and concurs with the plan as stated in the body of this note and will attest to such by his/her cosignature. ROYAL FLMEING DO June 21, 2016 09:24
[2016-06-21 09:32] VITALS: BP 124/86
[2016-06-21] MEDS: APIXABAN 2.5 MG TAB (ELIQUIS) PO SCH ×2 (09:32→20:52)
[2016-06-21] MEDS: MAGNESIUM CHLORIDE 64 MG TABCR (SLO MAG) PO SCH ×2 (09:33→20:52)
[2016-06-21] MEDS: METOPROLOL TARTRATE 100 MG TAB PO SCH ×2 (09:33→20:52)
[2016-06-21] MEDS: ESCITALOPRAM OXALATE 10 MG TAB (LEXAPRO) PO SCH (09:34)
[2016-06-21] MEDS: PROPYLTHIOURACIL 50 MG TAB PO SCH ×2 (09:34→20:52)
[2016-06-21] MEDS: SENOKOT S TAB PO SCH ×2 (09:35→20:52)
[2016-06-21] MEDS: RESTASIS (PATIENT'S OWN MED) OU SCH ×2 (09:36→20:52)
[2016-06-21] MEDS: LORazepam 0.5 MG TAB PO PRN (20:52)
[2016-06-21] MEDS: TRAVATAN OU SCH (20:53)
[2016-06-21 22:00] VITALS: BP 132/69
[2016-06-22] MEDS: PERCOCET 5MG/325MG TAB PO PRN ×2 (02:37→08:53)
[2016-06-22 06:00] VITALS: BP 133/67
[2016-06-22 06:55] LABS: BASO % 0.1 % (0.0-1.0); EOS # 0.3 K/mm3 (0.0-0.50); EOS % 4.4 % (0.0-3.0); LARGE UNSTAINED CELL # 0.2 K/mm3 (0.0-0.4); LARGE UNSTAINED CELL % 2.9 % (0.0-4.0); LYMPH % 15.2 % (24.0-44.0); MEAN CORPUSCULAR HEMOGLOBIN 32.6 pg (27.0-33.0); MEAN CORPUSCULAR HGB CONC 32.8 g/dl (32.0-36.5); MEAN CORPUSCULAR VOLUME 99.5 fl (80.0-96.0); MONO # 0.4 K/mm3 (0.0-0.8); MONO % 6.6 % (0.0-5.0); NEUTROPHILS # 4.6 K/mm3 (1.8-7.7); NEUTROPHILS % 70.7 % (36.0-66.0); PLATELET COUNT, AUTOMATED 180 k/mm3 (150-450); RED CELL DISTRIBUTION WIDTH 13.1 % (11.5-14.5); WHITE BLOOD COUNT 6.5 K/mm3 (4.0-10.0)
[2016-06-22 07:45] LABS: CALCIUM LEVEL 7.9 MG/DL (8.8-10.2); CREATININE FOR GFR 1.41 MG/DL (0.55-1.02); GLOMERULAR FILTRATION RATE 37.7 (>32); MAGNESIUM LEVEL 2.5 MG/DL (1.8-2.4)
[2016-06-22] MEDS: BREO ELLIPTA INH SCH (07:59)
[2016-06-22 08:37] VITALS: BP 122/81
[2016-06-22] MEDS: ESCITALOPRAM OXALATE 10 MG TAB (LEXAPRO) PO SCH (08:59)
[2016-06-22] MEDS: PROPYLTHIOURACIL 50 MG TAB PO SCH (08:59)
[2016-06-22] MEDS: METOPROLOL TARTRATE 100 MG TAB PO SCH (08:59)
[2016-06-22] MEDS: APIXABAN 2.5 MG TAB (ELIQUIS) PO SCH (09:00)
[2016-06-22] MEDS: MAGNESIUM CHLORIDE 64 MG TABCR (SLO MAG) PO SCH (09:00)
[2016-06-22] MEDS: SENOKOT S TAB PO SCH (09:00)
[2016-06-22] MEDS: RESTASIS (PATIENT'S OWN MED) OU SCH (09:02)
[2016-06-22] MEDS: SIMBRINZA OU SCH (09:02)
[2016-06-22] MEDS ORDERED: OXYC1TAB23 PO (09:21)
--- NOTE | 2016-06-23 13:40 | DSES ---
DATE OF ADMISSION: 06/16/2016 DATE OF DISCHARGE: 06/22/2017 ATTENDING PHYSICIAN: Dr. Iqbal. CONSULTANTS: Dr. Julio Thompson, orthopedics. DISCHARGE DIAGNOSES: 1. Hip fracture status post fall, status post left hip repair on June 19. 2. Acute on chronic kidney disease, back to baseline. 3. Atrial fibrillation, on Eliquis. 4. Hypertension. 5. Diastolic heart failure. 6. Hyperthyroidism. 7. Asthma. 8. Anxiety and depression. 9. History of macular degeneration. 10. History of glaucoma. 11. History of pancreatic cyst. 12. History of left hydroureter and hydronephrosis due to ureteric stone. 13. History of nephrolithiasis. 14. History of left renal mass. DISCHARGE MEDICATIONS: - Percocet one tablet by mouth every 6 hours as needed. - Eliquis 2.5 mg by mouth twice daily. - Cardizem 120 mg one tablet by mouth daily - Lexapro 10 mg by mouth daily - Breo Ellipta one puffs inhaled daily - furosemide 40 mg by mouth daily - lorazepam one tablet by mouth three times daily as needed - metoprolol 100 mg by mouth twice daily - propylthiouracil 50 mg by mouth twice daily - Restasis one drop in each eye twice daily - Simbrinza one droplet in each eye twice daily - Travatan one droplet in each eye at night - Tylenol 650 mg by mouth twice daily as needed DISCONTINUE MEDICATIONS: - magnesium chloride 64 mg by mouth twice daily. Magnesium was elevated. This can be resumed as outpatient if deemed necessary. BRIEF HOSPITAL COURSE: The patient presented to the emergency department after having a fall. She was trying to close the door and the handle came off and she fell onto her left side. She was found to have fracture of the neck of the femur. Other imaging was negative which included CT scan of the head, maxillofacial CT and rib x-ray. Orthopedics was consulted for management. Eliquis was held for a couple of days prior to surgery. She was able to go into surgery on April 19 for left femoral neck percutaneous pinning. The patient tolerated the surgery well without significant complication. Pain was controlled during hospitalization and Eliquis was resumed. She did require some oxygen during the hospitalization which was titrated off. The patient had episode of acute renal failure that improved with IV hydration and renal function is back to baseline. Pain medicine and rehabilitation screen was done and insurance denied her for pain medicine and rehabilitation. She was accepted at [facility] and once a bed was made available, she was subsequently stable for discharge. LABORATORY DATA: On discharge WBC 6.5, hemoglobin 10.7, hematocrit 32.7, platelet count 180. Sodium 141, potassium 4.0, chloride 107, carbon dioxide 28, anion gap 6, BUN 30, creatinine 1.4, GFR 37.7, fasting glucose 107, calcium 7.9, magnesium 2.5. IMAGING STUDIES: The patient had a rib x-ray which was negative. Maxillofacial CT showed no acute fracture. Minimal soft tissue swelling lateral to the left orbit. Head CT reveals age-related atrophy and chronic small vessel ischemic disease. No acute pathology. Abdomen/pelvis CT revealed moderate diffuse spondylosis of the spine, bilateral simple renal cysts, no acute pathology. Vascular ultrasound showed no evidence of the DVT in bilateral lower extremity. Chest x-ray revealed cardiomegaly and mild bibasilar plate like atelectasis on April 19. No acute infiltrate. Final hip x-ray done on 06/20 revealed three metallic screws seen pinning the subcapital fracture of the left hip, some soft tissue swelling and postop soft tissue emphysema. PHYSICAL EXAMINATION ON DISCHARGE: Vital signs: Temperature 97.7, pulse 100, respiratory rate 18, blood pressure 122/81, pulse ox 93% on room air. General: The patient is awake and alert. In no acute distress. HEENT: Normocephalic. Extraocular muscles are intact. Pupils are equally round and reactive to light. No scleral icterus. Moist mucosa. Neck: Supple. No cervical lymphadenopathy. No jugular venous distension appreciated. Heart: Irregular rhythm. Normal rate. No murmur appreciated. Lungs: Clear to auscultation bilaterally. No rales, rhonchi or wheezing. Abdomen: Soft, nontender, nondistended. Positive bowel sounds. Extremities: Minimal left hip swelling and tenderness. No cyanosis. Positive pedal pulses bilaterally. Skin: Warm and dry. No rashes noted. Neurologic: No focal deficits. Cranial nerves: II through XII are grossly intact. Moving all extremities. DISCHARGE INSTRUCTIONS: The patient is discharged in stable condition. She will be going to [facility] for rehabilitation. She should followup with her primary care physician within 1 week. Orthopedics in 2 weeks. She should be partial weightbearing. Activity per rehabilitation as well. 2 grams sodium diet. Return to emergency department with any worsening or recurring symptoms. THINGS TO FOLLOW UP ON: The patient's magnesium was discontinued secondary to magnesium level being elevated. Family is aware that they should follow up on magnesium level to determine if magnesium supplement should be reinstated. TIME SPENT ON DISCHARGE: Greater than 30 minutes. My preceptor for this patient encounter was Dr. Michele Iqbal. The preceptor was physically present in the building during the encounter and was fully available. As needed, all aspects of the patient interview, examination, medical decision making process, and medical care plan development were reviewed and approved by the preceptor. The preceptor is aware and concurs with the plan as stated in the body of this note and will attest to such by his/her cosignature.
== END 2016-06-22 11:34 | DRG 481 ==
LOC: EDBD 17:23 → M ED 19:07 → M ED INP 19:29 → M MS5PR 22:00
PROVIDERS: ADMIT Internal Medicine Nephrology; ATTEND General Practice
PROC: 0QS706Z Reposition Left Upper Femur with Intramedullary Internal Fixation Device, Open Approach (ICD-10-PCS; principal; 2016-06-19 15:30)
DX: S72.045A Nondisplaced fracture of base of neck of left femur, initial encounter for closed fracture (principal); I50.32 Chronic diastolic (congestive) heart failure; I13.0 Hypertensive heart and chronic kidney disease with heart failure and stage 1 through stage 4 chronic kidney disease, or unspecified chronic kidney disease; N17.9 Acute kidney failure, unspecified; J45.909 Unspecified asthma, uncomplicated; I48.91 Unspecified atrial fibrillation; E03.9 Hypothyroidism, unspecified; H35.30 Unspecified macular degeneration; N28.1 Cyst of kidney, acquired; F41.9 Anxiety disorder, unspecified; H40.9 Unspecified glaucoma; N18.3 Chronic kidney disease, stage 3 (moderate); F32.9 Major depressive disorder, single episode, unspecified; Z79.01 Long term (current) use of anticoagulants; Z79.899 Other long term (current) drug therapy; Z90.49 Acquired absence of other specified parts of digestive tract; Z90.710 Acquired absence of both cervix and uterus; Z87.891 Personal history of nicotine dependence; Z88.2 Allergy status to sulfonamides; W01.0XXA Fall on same level from slipping, tripping and stumbling without subsequent striking against object, initial encounter; Y92.017 Garden or yard in single-family (private) house as the place of occurrence of the external cause; Y93.01 Activity, walking, marching and hiking; Y99.9 Unspecified external cause status

== ENCOUNTER → 2016-06-25 | Outpatient (REF) ==
[~2016-06-25] MED LIST changes: +BREO1INH INH; +CARD1TAB5 PO; +LORA-376 PO; +METO100T PO; +OXYC1TAB23 PO; +SIMB1SUS OU; +TRAV04OPD OU
[2016-06-25 11:06] LABS: MEAN CORPUSCULAR HGB CONC 32.4 g/dl (32.0-36.5); MEAN CORPUSCULAR VOLUME 98.8 fl (80.0-96.0); RED CELL DISTRIBUTION WIDTH 13.1 % (11.5-14.5); WHITE BLOOD COUNT 8.1 K/mm3 (4.0-10.0)
[2016-06-25 11:24] LABS: CALCIUM LEVEL 8.4 MG/DL (8.8-10.2); CREATININE FOR GFR 1.51 MG/DL (0.55-1.02); GLOMERULAR FILTRATION RATE 34.9 (>32); POTASSIUM SERUM 3.4 MEQ/L (3.5-5.1)
== END ==
PROVIDERS: ATTEND Internal Medicine
DX: I50.9 Heart failure, unspecified (principal); I11.0 Hypertensive heart disease with heart failure

== ENCOUNTER → 2016-07-02 | Outpatient (REF) ==
[2016-07-02 10:11] LABS: MEAN CORPUSCULAR HEMOGLOBIN 32.3 pg (27.0-33.0); MEAN CORPUSCULAR HGB CONC 33.7 g/dl (32.0-36.5); MEAN CORPUSCULAR VOLUME 95.8 fl (80.0-96.0); RED CELL DISTRIBUTION WIDTH 13.2 % (11.5-14.5)
[2016-07-02 10:28] LABS: CALCIUM LEVEL 8.3 MG/DL (8.8-10.2); CREATININE FOR GFR 1.59 MG/DL (0.55-1.02); GLOMERULAR FILTRATION RATE 32.8 (>32); POTASSIUM SERUM 3.7 MEQ/L (3.5-5.1)
== END ==
PROVIDERS: ATTEND Internal Medicine
DX: E87.6 Hypokalemia (principal); E83.42 Hypomagnesemia

== ENCOUNTER → 2016-07-05 | Outpatient (REF) ==
[2016-07-05 14:00] LABS: CALCIUM LEVEL 8.4 MG/DL (8.8-10.2); CREATININE FOR GFR 1.46 MG/DL (0.55-1.02); GLOMERULAR FILTRATION RATE 36.2 (>32); MAGNESIUM LEVEL 2.1 MG/DL (1.8-2.4); POTASSIUM SERUM 3.5 MEQ/L (3.5-5.1)
== END ==
PROVIDERS: ATTEND Internal Medicine
DX: E87.6 Hypokalemia (principal)

== ENCOUNTER → 2016-08-28 | Outpatient (REF) | payer MEDICARE ==
[~2016-08-28] MED LIST changes: +LEVA1TAB2 PO; -LEVA500T PO; -LORA-376 PO; +LORA0.5T11 PO; -METO100T PO; +METO100T5 PO; +METO25TA4 PO; -METO25TAB PO
== END ==
LOC: M LAB REF 12:52
PROVIDERS: ATTEND Nurse Practitioner Adult Health
DX: J45.31 Mild persistent asthma with (acute) exacerbation (principal)

== ENCOUNTER → 2016-10-31 | Outpatient (CLI) | payer MEDICARE ==
[2016-10-31 18:43] LABS: CALCIUM LEVEL 8.6 MG/DL (8.8-10.2); CREATININE FOR GFR 1.35 MG/DL (0.55-1.02); GLOMERULAR FILTRATION RATE 39.7 (>32); POTASSIUM SERUM 3.6 MEQ/L (3.5-5.1)
== END ==
LOC: M SMT 14:32
PROVIDERS: ATTEND Nurse Practitioner Women's Health
DX: N28.89 Other specified disorders of kidney and ureter (principal)

== ENCOUNTER → 2016-11-12 | Outpatient (CLI) | payer MEDICARE ==
[~2016-11-12] MED LIST changes: +ISOVUE-370 76% 100ML VIAL (Q9967) As Ordered ONE
--- NOTE | 2016-11-12 15:15 | REP ---
CT of the abdomen and pelvis without and with IV contrast, multiphase scanning: Scanning is initially performed without IV contrast. This is followed by multiphase scanning after IV contrast. Comparison is 04/15/2016. The patient has a mass at the mid pole of the left kidney laterally measuring up to 3.0 cm in diameter. There are several other low density lesions in the left kidney, some are adjacent to this mass and some a distance from this mass. They do not have CT density are compatible with cysts, therefore, there may be multiple solid masses within this left kidney. These masses are best appreciated on the delayed images. Consider MRI follow up for further evaluation of the left kidney. There are multiple cysts in the right kidney. I do not identify any solid masses in the right kidney. There is no hydronephrosis. No perinephric stranding. The hepatic parenchyma is homogeneous. There is a cholecystectomy. The intrahepatic and extrahepatic biliary ducts are dilated, likely secondary to post cholecystectomy state. The common duct measures up to 12 mm in diameter. There is a 2.6 cm cyst along the anterior margin of the pancreatic head, similar to the prior study. There is no CT evidence of acute pancreatitis. The spleen is normal size and unremarkable. The adrenals are unremarkable.. The abdominal aorta is unremarkable. There is no retroperitoneal adenopathy. There is no bowel distension or obstruction. Pelvis: There is a pessary in the vaginal vault. The bladder is nondistended and cannot be further evaluated. There is no pelvic adenopathy or ascites. There is diverticulosis of the descending colon and sigmoid colon without diverticulitis. There is internal fixation of the left hip. Impression:: There are multiple low density lesions in the left kidney, most of which have the CT density numbers compatible with solid masses are not cysts. I would recommend MRI follow-up for further evaluation of the left kidney. There are multiple cysts in the right kidney. There is no hydronephrosis. There is a cholecystectomy with post cholecystectomy dilatation of the intrahepatic extra panic biliary ducts. There is a 2.6 cm cyst along the anterior margin of the pancreatic head. There is no CT evidence of pancreatitis. No adenopathy or ascites. There is a pessary in the vaginal vault. There is internal fixation of the left hip. Signed by Kamari Coughlin MD 11/12/2016 03:06 P
== END ==
LOC: M RAD 13:43
PROVIDERS: ATTEND Urology
DX: N28.89 Other specified disorders of kidney and ureter (principal)
CPT/HCPCS: 74178; Q9967

== ENCOUNTER → 2017-04-08 | Outpatient (REF) | payer MEDICARE ==
[2017-04-08 14:21] LABS: FREE T3 2.7 PG/ML (2.2-4.0)
== END ==
LOC: M LAB REF 13:39
DX: E03.9 Hypothyroidism, unspecified (principal)
CPT/HCPCS: 84481

== ENCOUNTER → 2017-04-11 | Outpatient (CLI) | payer MEDICARE | LOC: M WUC 14:27 | DX: S99.921A Unspecified injury of right foot, initial encounter (principal); M19.071 Primary osteoarthritis, right ankle and foot; X58.XXXA Exposure to other specified factors, initial encounter; Y92.89 Other specified places as the place of occurrence of the external cause; Y93.89 Activity, other specified; Y99.8 Other external cause status | CPT/HCPCS: 73630 ==

== ENCOUNTER → 2017-04-23 | Outpatient (REF) | payer MEDICARE ==
[2017-04-23 13:26] LABS: URIC ACID 10.9 MG/DL (2.6-6.0)
== END ==
LOC: M LAB REF 12:14
DX: M79.673 Pain in unspecified foot (principal); N18.3 Chronic kidney disease, stage 3 (moderate)
CPT/HCPCS: 84550

== ENCOUNTER → 2017-05-08 | Outpatient (CLI) | payer MEDICARE | LOC: M RAD 11:50 | DX: N28.89 Other specified disorders of kidney and ureter (principal) | CPT/HCPCS: 76775 ==

== ENCOUNTER 2017-08-13 08:06 | Emergency (ER) | payer MEDICARE ==
[2017-08-13] MEDS: diphenhydrAMINE 50 MG CAP PO (08:54)
== END 2017-08-13 09:08 | disposition home or self-care (01) ==
LOC: M ED 08:06
DX: L29.9 Pruritus, unspecified (principal); T78.1XXA Other adverse food reactions, not elsewhere classified, initial encounter; I10 Essential (primary) hypertension; J45.909 Unspecified asthma, uncomplicated; H40.9 Unspecified glaucoma; E07.9 Disorder of thyroid, unspecified; K58.9 Irritable bowel syndrome, unspecified; F33.9 Major depressive disorder, recurrent, unspecified; Z87.891 Personal history of nicotine dependence; Z88.2 Allergy status to sulfonamides; Z79.899 Other long term (current) drug therapy

== ENCOUNTER 2017-08-14 17:56 | Inpatient (IN) | payer MEDICARE ==
[2017-08-14 19:25] LABS: BASO % 0.1 % (0.0-1.0); EOS # 0.3 10^3/uL (0.0-0.50); EOS % 2.2 % (0.0-3.0); HEMATOCRIT 37.8 % (36.0-47.0); HEMOGLOBIN 13.1 g/dl (12.0-15.5); IMMATURE GRANULOCYTE % 1.3 % (0-3.0); LYMPH # 0.5 10^3/uL (1.5-4.5); LYMPH % 3.2 % (24.0-44.0); MEAN CORPUSCULAR HEMOGLOBIN 33.2 pg (27.0-33.0); MEAN CORPUSCULAR HGB CONC 34.7 g/dl (32.0-36.5); MEAN CORPUSCULAR VOLUME 95.9 fl (80.0-96.0); MONO # 0.4 10^3/uL (0.0-0.8); MONO % 2.7 % (0.0-5.0); NEUTROPHILS # 12.9 10^3/uL (1.8-7.7); NEUTROPHILS % 90.5 % (36.0-66.0); PLATELET COUNT, AUTOMATED 269 10^3/uL (150-450); RED BLOOD COUNT 3.94 10^6/uL (4.00-5.40); RED CELL DISTRIBUTION WIDTH 14.1 % (11.5-14.5); WHITE BLOOD COUNT 14.3 10^3/uL (4.0-10.0)
[2017-08-14] MEDS: NS 500 ML IV (19:30)
[2017-08-14 19:41] LABS: ALBUMIN 2.9 GM/DL (3.2-5.2); ALBUMIN/GLOBULIN RATIO 0.81 (1.00-1.93); ALKALINE PHOSPHATASE 66 U/L (45-117); ALT/SGPT 17 U/L (12-78); ANION GAP 11 MEQ/L (8-16); AST/SGOT 14 U/L (7-37); BILIRUBIN,DIRECT 0.2 MG/DL (0.0-0.2); BILIRUBIN,TOTAL 0.7 MG/DL (0.2-1.0); BLOOD UREA NITROGEN 52 MG/DL (7-18); CALCIUM LEVEL 7.7 MG/DL (8.8-10.2); CARBON DIOXIDE LEVEL 23 MEQ/L (21-32); CHLORIDE LEVEL 102 MEQ/L (98-107); CREATININE FOR GFR 2.75 MG/DL (0.55-1.30); GLOMERULAR FILTRATION RATE 17.4 (>32); GLUCOSE, FASTING 143 MG/DL (70-100); INR 1.42; LIPASE 192 U/L (73-393); POTASSIUM SERUM 4.6 MEQ/L (3.5-5.1); PROTHROMBIN TIME 17.6 SECONDS (12.1-14.4); SODIUM LEVEL 136 MEQ/L (136-145); TOTAL PROTEIN 6.5 GM/DL (6.4-8.2)
[2017-08-14] MEDS: diphenhydrAMINE INJ 50MG/ML VIAL (J1200) IV (19:42)
[2017-08-14] MEDS: FAMOTIDINE IV BAG 20 MG in APPROPRIATE DILUENT 1 EA IV (19:42)
[2017-08-14 19:52] LABS: C REACTIVE PROTEIN QUANTITATIV 5.74 MG/DL (0.00-0.30)
[2017-08-14 20:11] LABS: ERYTHROCYTE SEDIMENTATION RATE 43 mm/hr (0-42)
[2017-08-14] MEDS: NS 1,000 ML IV ×2 (20:18→23:30)
[2017-08-14] MEDS: cefTRIAXone SOD 1 GM in D5W MINI-BAG PLUS 50 ML IV (20:45)
[2017-08-14 21:37] LABS: KETONE, URINE AUTO RFX NEGATIVE (NEGATIVE); LEUKOCYTE ESTERASE UR AUTO RFX 3+ (NEGATIVE); NITRITE, URINE AUTO RFX NEGATIVE (NEGATIVE); RBC, URINE AUTO RFX 44 /HPF (0-3); SPECIFIC GRAVITY UR AUTO RFX 1.014 (1.002-1.035); SQUAM EPITHELIAL CELL UR AURFX 35 /HPF (0-6); WBC, URINE AUTO RFX TNTC /HPF (0-3)
[2017-08-14] MEDS ORDERED: ONDANSETRON 4 MG TAB (S0181) PO (23:15)
[2017-08-14] MEDS ORDERED: BISACODYL 5 MG TAB PO (23:15)
[2017-08-14 23:54] LABS: COMPLEMENT C3 120 MG/DL (90-180); COMPLEMENT C4 44.3 MG/DL (10-40); T UPTAKE 42 % (30-39); THYROID STIMULATING HORMONE 0.479 uIU/ML (0.358-3.740)
[2017-08-15] MEDS: ACETAMINOPHEN TAB 650MG DOSE (2X325MG) PO ×3 (01:29→21:01)
[2017-08-15] MEDS: diphenhydrAMINE 25 MG CAP PO ×4 (01:29→18:05)
[2017-08-15] MEDS: NS 1,000 ML IV ×3 (03:30→21:00)
[2017-08-15] MEDS ORDERED: HEPARIN SOD (PORCINE) 5000 UNITS/ML VIAL SC (06:00)
[2017-08-15 07:10] LABS: BASO % 0.2 % (0.0-1.0); EOS # 0.6 10^3/uL (0.0-0.50); EOS % 4.9 % (0.0-3.0); HEMATOCRIT 32.6 % (36.0-47.0); IMMATURE GRANULOCYTE % 1.1 % (0-3.0); LYMPH # 0.5 10^3/uL (1.5-4.5); LYMPH % 4.5 % (24.0-44.0); MEAN CORPUSCULAR HEMOGLOBIN 32.4 pg (27.0-33.0); MEAN CORPUSCULAR HGB CONC 33.7 g/dl (32.0-36.5); MEAN CORPUSCULAR VOLUME 96.2 fl (80.0-96.0); MONO # 0.3 10^3/uL (0.0-0.8); MONO % 2.8 % (0.0-5.0); NEUTROPHILS # 9.8 10^3/uL (1.8-7.7); NEUTROPHILS % 86.5 % (36.0-66.0); PLATELET COUNT, AUTOMATED 224 10^3/uL (150-450); RED BLOOD COUNT 3.39 10^6/uL (4.00-5.40); RED CELL DISTRIBUTION WIDTH 14.2 % (11.5-14.5); WHITE BLOOD COUNT 11.3 10^3/uL (4.0-10.0)
[2017-08-15 07:33] LABS: ALBUMIN 2.2 GM/DL (3.2-5.2); ALBUMIN/GLOBULIN RATIO 0.71 (1.00-1.93); ALKALINE PHOSPHATASE 53 U/L (45-117); ALT/SGPT 14 U/L (12-78); ANION GAP 12 MEQ/L (8-16); AST/SGOT 10 U/L (7-37); BILIRUBIN,TOTAL 0.5 MG/DL (0.2-1.0); BLOOD UREA NITROGEN 52 MG/DL (7-18); CALCIUM LEVEL 6.7 MG/DL (8.8-10.2); CARBON DIOXIDE LEVEL 21 MEQ/L (21-32); CHLORIDE LEVEL 109 MEQ/L (98-107); CREATININE FOR GFR 2.98 MG/DL (0.55-1.30); GLOMERULAR FILTRATION RATE 15.9 (>32); GLUCOSE, FASTING 115 MG/DL (70-100); SODIUM LEVEL 142 MEQ/L (136-145); TOTAL PROTEIN 5.3 GM/DL (6.4-8.2)
[2017-08-15] MEDS: ACETAMINOPHEN 500 MG TAB PO (08:55)
[2017-08-15] MEDS: METOPROLOL TART 25 MG TABLET PO ×3 (09:00→21:01)
[2017-08-15] MEDS: MULTIVITAMINS/MINERALS THERAP 1 TAB PO (09:09)
[2017-08-15] MEDS: APIXABAN 2.5 MG TAB (ELIQUIS) PO ×2 (09:10→21:01)
[2017-08-15] MEDS: ESCITALOPRAM OXALATE 10 MG TAB (LEXAPRO) PO (09:10)
[2017-08-15] MEDS: cefTRIAXone SOD 1 GM in D5W MINI-BAG PLUS 50 ML IV (09:17)
[2017-08-15] MEDS: PROPYLTHIOURACIL 50 MG TAB PO ×3 (12:20→21:01)
[2017-08-15] MEDS: LATANOPROST 0.005% OPHTH SOLN 2.5 ML OU (21:01)
[2017-08-16] MEDS: diphenhydrAMINE 25 MG CAP PO ×4 (00:08→18:17)
[2017-08-16] MEDS: ACETAMINOPHEN TAB 650MG DOSE (2X325MG) PO (05:20)
[2017-08-16 06:44] LABS: BASO % 0.1 % (0.0-1.0); HEMATOCRIT 30.7 % (36.0-47.0); HEMOGLOBIN 10.5 g/dl (12.0-15.5); IMMATURE GRANULOCYTE % 1.4 % (0-3.0); LYMPH % 3.1 % (24.0-44.0); MEAN CORPUSCULAR HEMOGLOBIN 32.7 pg (27.0-33.0); MEAN CORPUSCULAR HGB CONC 34.2 g/dl (32.0-36.5); MEAN CORPUSCULAR VOLUME 95.6 fl (80.0-96.0); MONO % 2.9 % (0.0-5.0); NEUTROPHILS % 88.5 % (36.0-66.0); PLATELET COUNT, AUTOMATED 211 10^3/uL (150-450); RED BLOOD COUNT 3.21 10^6/uL (4.00-5.40); RED CELL DISTRIBUTION WIDTH 14.6 % (11.5-14.5); WHITE BLOOD COUNT 11.2 10^3/uL (4.0-10.0)
[2017-08-16 06:45] LABS: EOS # 0.5 10^3/uL (0.0-0.50); LYMPH # 0.4 10^3/uL (1.5-4.5); MONO # 0.3 10^3/uL (0.0-0.8); NEUTROPHILS # 9.9 10^3/uL (1.8-7.7)
[2017-08-16 06:49] LABS: POSITIVE MORPH POS FLAG
[2017-08-16 07:00] LABS: ANION GAP 12 MEQ/L (8-16); BLOOD UREA NITROGEN 53 MG/DL (7-18); CALCIUM LEVEL 7.2 MG/DL (8.8-10.2); CARBON DIOXIDE LEVEL 17 MEQ/L (21-32); CHLORIDE LEVEL 110 MEQ/L (98-107); CREATININE FOR GFR 2.85 MG/DL (0.55-1.30); GLOMERULAR FILTRATION RATE 16.7 (>32); GLUCOSE, FASTING 100 MG/DL (70-100); SODIUM LEVEL 139 MEQ/L (136-145)
[2017-08-16] MEDS: PROPYLTHIOURACIL 50 MG TAB PO ×3 (09:33→19:59)
[2017-08-16] MEDS: METOPROLOL TART 25 MG TABLET PO ×3 (09:34→20:00)
[2017-08-16] MEDS: MULTIVITAMINS/MINERALS THERAP 1 TAB PO (09:34)
[2017-08-16] MEDS: ESCITALOPRAM OXALATE 10 MG TAB (LEXAPRO) PO (09:34)
[2017-08-16] MEDS: APIXABAN 2.5 MG TAB (ELIQUIS) PO ×2 (09:34→19:59)
[2017-08-16] MEDS: cefTRIAXone SOD 1 GM in D5W MINI-BAG PLUS 50 ML IV (09:35)
[2017-08-16] MEDS: SODIUM BICARBONATE 75 MEQ in NS 0.45% 1,000 ML IV (11:26)
[2017-08-16 14:18] LABS: ANTINUCLEAR ANTIBODIES DIRECT Negative (Negative)
[2017-08-16] MEDS: predniSONE 20 MG TAB PO (16:29)
[2017-08-16] MEDS: LATANOPROST 0.005% OPHTH SOLN 2.5 ML OU (20:00)
[2017-08-16] MEDS: ACETAMINOPHEN 500 MG TAB PO (20:00)
[2017-08-17 00:12] LABS: Lyme Disease IgG/IgM Antibodie <0.91 ISR (0.00-0.90); Lyme Disease IgM Ab Quantitati <0.80 index (0.00-0.79)
[2017-08-17] MEDS: diphenhydrAMINE 25 MG CAP PO ×2 (00:29→04:20)
[2017-08-17 06:35] LABS: BASO % 0.1 % (0.0-1.0); EOS # 0.1 10^3/uL (0.0-0.50); EOS % 1.4 % (0.0-3.0); HEMATOCRIT 29.6 % (36.0-47.0); HEMOGLOBIN 10.1 g/dl (12.0-15.5); IMMATURE GRANULOCYTE % 0.9 % (0-3.0); LYMPH # 0.4 10^3/uL (1.5-4.5); LYMPH % 5.4 % (24.0-44.0); MEAN CORPUSCULAR HEMOGLOBIN 32.6 pg (27.0-33.0); MEAN CORPUSCULAR HGB CONC 34.1 g/dl (32.0-36.5); MEAN CORPUSCULAR VOLUME 95.5 fl (80.0-96.0); MONO # 0.3 10^3/uL (0.0-0.8); MONO % 4.4 % (0.0-5.0); NEUTROPHILS # 6.2 10^3/uL (1.8-7.7); NEUTROPHILS % 87.8 % (36.0-66.0); PLATELET COUNT, AUTOMATED 216 10^3/uL (150-450); RED CELL DISTRIBUTION WIDTH 14.6 % (11.5-14.5); WHITE BLOOD COUNT 7.1 10^3/uL (4.0-10.0)
[2017-08-17 06:51] LABS: ANION GAP 11 MEQ/L (8-16); BLOOD UREA NITROGEN 62 MG/DL (7-18); CALCIUM LEVEL 7.6 MG/DL (8.8-10.2); CARBON DIOXIDE LEVEL 19 MEQ/L (21-32); CHLORIDE LEVEL 110 MEQ/L (98-107); CREATININE FOR GFR 2.57 MG/DL (0.55-1.30); GLOMERULAR FILTRATION RATE 18.8 (>32); GLUCOSE, FASTING 123 MG/DL (70-100); POTASSIUM SERUM 4.2 MEQ/L (3.5-5.1); SODIUM LEVEL 140 MEQ/L (136-145)
[2017-08-17] MEDS: PROPYLTHIOURACIL 50 MG TAB PO (09:34)
[2017-08-17] MEDS: predniSONE 20 MG TAB PO (09:34)
[2017-08-17] MEDS: APIXABAN 2.5 MG TAB (ELIQUIS) PO ×2 (09:35→21:37)
[2017-08-17] MEDS: ESCITALOPRAM OXALATE 10 MG TAB (LEXAPRO) PO (09:35)
[2017-08-17] MEDS: METOPROLOL TART 25 MG TABLET PO ×3 (09:35→21:38)
[2017-08-17] MEDS: MULTIVITAMINS/MINERALS THERAP 1 TAB PO (09:35)
[2017-08-17] MEDS: hydrOXYzine 10 MG TAB PO (09:36)
[2017-08-17] MEDS: SODIUM BICARBONATE 75 MEQ in NS 0.45% 1,000 ML IV (11:44)
[2017-08-17 12:30] LABS: AMORPHOUS SEDIMENT SMALL (NEGATIVE); APPEARANCE, URINE CLOUDY (CLEAR); BACTERIA, URINE AUTO NEGATIVE (NEGATIVE); BILIRUBIN, URINE AUTO NEGATIVE (NEGATIVE); BLOOD, URINE BLOOD NEGATIVE (NEGATIVE); COLOR, URINE YELLOW (YELLOW); GLUCOSE, URINE (UA) AUTO NEGATIVE (NEGATIVE); KETONE, URINE AUTO NEGATIVE (NEGATIVE); LEUKOCYTE ESTERASE, URINE AUTO NEGATIVE (NEGATIVE); MUCUS, URINE SMALL (NEGATIVE); NITRITE, URINE AUTO NEGATIVE (NEGATIVE); PROTEIN, URINE AUTO NEGATIVE (NEGATIVE); RBC, URINE AUTO 3 /HPF (0-3); SPECIFIC GRAVITY URINE AUTO 1.012 (1.002-1.035); SQUAMOUS EPITHELIAL CELL UR AU 0 /HPF (0-6); UROBILINOGEN, URINE AUTO 0.2 mg/dL (0.0-2.0); WBC, URINE AUTO 1 /HPF (0-3)
[2017-08-17 12:43] LABS: CREATININE,RANDOM URINE 89.1 MG/DL
[2017-08-17 12:43] LABS: TOTAL PROTEIN,RANDOM URINE 53.5 MG/DL (0.0-12.0)
[2017-08-17] MEDS: DIGOXIN 0.25 MG TAB PO (13:45)
[2017-08-17] MEDS: hydrOXYzine 25 MG TAB PO ×2 (16:20→21:37)
[2017-08-17] MEDS: LATANOPROST 0.005% OPHTH SOLN 2.5 ML OU (21:38)
[2017-08-17] MEDS: ACETAMINOPHEN TAB 650MG DOSE (2X325MG) PO (21:38)
[2017-08-17] MEDS: LORazepam 0.5 MG TAB PO (21:41)
[2017-08-18 06:45] LABS: BASO % 0.2 % (0.0-1.0); EOS # 0.3 10^3/uL (0.0-0.50); EOS % 3.5 % (0.0-3.0); HEMATOCRIT 27.2 % (36.0-47.0); HEMOGLOBIN 9.6 g/dl (12.0-15.5); IMMATURE GRANULOCYTE % 0.6 % (0-3.0); LYMPH # 0.6 10^3/uL (1.5-4.5); LYMPH % 7.2 % (24.0-44.0); MEAN CORPUSCULAR HEMOGLOBIN 32.3 pg (27.0-33.0); MEAN CORPUSCULAR HGB CONC 35.3 g/dl (32.0-36.5); MEAN CORPUSCULAR VOLUME 91.6 fl (80.0-96.0); MONO # 0.5 10^3/uL (0.0-0.8); MONO % 5.9 % (0.0-5.0); NEUTROPHILS # 6.7 10^3/uL (1.8-7.7); NEUTROPHILS % 82.6 % (36.0-66.0); PLATELET COUNT, AUTOMATED 259 10^3/uL (150-450); RED BLOOD COUNT 2.97 10^6/uL (4.00-5.40); RED CELL DISTRIBUTION WIDTH 14.5 % (11.5-14.5); WHITE BLOOD COUNT 8.1 10^3/uL (4.0-10.0)
[2017-08-18 06:57] LABS: ANION GAP 10 MEQ/L (8-16); BLOOD UREA NITROGEN 62 MG/DL (7-18); CALCIUM LEVEL 7.7 MG/DL (8.8-10.2); CARBON DIOXIDE LEVEL 22 MEQ/L (21-32); CHLORIDE LEVEL 112 MEQ/L (98-107); CREATININE FOR GFR 2.12 MG/DL (0.55-1.30); GLOMERULAR FILTRATION RATE 23.5 (>32); GLUCOSE, FASTING 124 MG/DL (70-100); POTASSIUM SERUM 3.7 MEQ/L (3.5-5.1); SODIUM LEVEL 144 MEQ/L (136-145)
[2017-08-18] MEDS: MULTIVITAMINS/MINERALS THERAP 1 TAB PO (09:20)
[2017-08-18] MEDS: LORazepam 0.5 MG TAB PO ×2 (09:20→21:06)
[2017-08-18] MEDS: predniSONE 20 MG TAB PO (09:21)
[2017-08-18] MEDS: APIXABAN 2.5 MG TAB (ELIQUIS) PO ×2 (09:21→21:07)
[2017-08-18] MEDS: ACETAMINOPHEN 500 MG TAB PO (09:21)
[2017-08-18] MEDS: hydrOXYzine 25 MG TAB PO ×2 (09:22→21:07)
[2017-08-18] MEDS: ESCITALOPRAM OXALATE 10 MG TAB (LEXAPRO) PO (09:22)
[2017-08-18] MEDS: METOPROLOL TART 25 MG TABLET PO ×3 (09:22→21:07)
[2017-08-18] MEDS: SODIUM BICARBONATE 75 MEQ in NS 0.45% 1,000 ML IV (09:23)
[2017-08-18 10:48] LABS: PHOSPHORUS LEVEL 5.1 MG/DL (2.5-4.9); URIC ACID 7.4 MG/DL (2.6-6.0)
[2017-08-18] MEDS: DIGOXIN 0.125 MG TAB PO (13:08)
[2017-08-18] MEDS: FEBUXOSTAT 40 MG TABLET (ULORIC) PO (16:46)
[2017-08-18] MEDS: LATANOPROST 0.005% OPHTH SOLN 2.5 ML OU (21:08)
[2017-08-19 00:09] LABS: COMPLEMENT TOTAL (CH50) 55 U/mL (>41)
[2017-08-19 00:09] LABS: ANTI DNASE B TITER 127 U/mL (0-120)
[2017-08-19 06:14] LABS: BASO % 0.2 % (0.0-1.0); EOS # 0.5 10^3/uL (0.0-0.50); EOS % 5.9 % (0.0-3.0); HEMATOCRIT 29.7 % (36.0-47.0); HEMOGLOBIN 10.5 g/dl (12.0-15.5); IMMATURE GRANULOCYTE % 1.3 % (0-3.0); LYMPH # 0.9 10^3/uL (1.5-4.5); MEAN CORPUSCULAR HEMOGLOBIN 32.6 pg (27.0-33.0); MEAN CORPUSCULAR HGB CONC 35.4 g/dl (32.0-36.5); MEAN CORPUSCULAR VOLUME 92.2 fl (80.0-96.0); MONO # 0.8 10^3/uL (0.0-0.8); MONO % 9.2 % (0.0-5.0); NEUTROPHILS # 6.3 10^3/uL (1.8-7.7); NEUTROPHILS % 73.4 % (36.0-66.0); PLATELET COUNT, AUTOMATED 296 10^3/uL (150-450); RED BLOOD COUNT 3.22 10^6/uL (4.00-5.40); RED CELL DISTRIBUTION WIDTH 14.7 % (11.5-14.5); WHITE BLOOD COUNT 8.5 10^3/uL (4.0-10.0)
[2017-08-19 06:35] LABS: ANION GAP 9 MEQ/L (8-16); BLOOD UREA NITROGEN 56 MG/DL (7-18); CALCIUM LEVEL 7.9 MG/DL (8.8-10.2); CARBON DIOXIDE LEVEL 23 MEQ/L (21-32); CHLORIDE LEVEL 114 MEQ/L (98-107); CREATININE FOR GFR 1.72 MG/DL (0.55-1.30); GLOMERULAR FILTRATION RATE 29.9 (>32); GLUCOSE, FASTING 109 MG/DL (70-100); POTASSIUM SERUM 3.9 MEQ/L (3.5-5.1); SODIUM LEVEL 146 MEQ/L (136-145)
[2017-08-19] MEDS: MULTIVITAMINS/MINERALS THERAP 1 TAB PO (09:15)
[2017-08-19] MEDS: DIGOXIN 0.125 MG TAB PO (09:16)
[2017-08-19] MEDS: METOPROLOL TART 25 MG TABLET PO ×3 (09:16→22:13)
[2017-08-19] MEDS: FEBUXOSTAT 40 MG TABLET (ULORIC) PO (09:16)
[2017-08-19] MEDS: APIXABAN 2.5 MG TAB (ELIQUIS) PO ×2 (09:17→22:12)
[2017-08-19] MEDS: predniSONE 20 MG TAB PO (09:17)
[2017-08-19] MEDS: ESCITALOPRAM OXALATE 10 MG TAB (LEXAPRO) PO (09:17)
[2017-08-19] MEDS: PROPYLTHIOURACIL 50 MG TAB PO ×2 (15:50→22:12)
[2017-08-19] MEDS: LORazepam 0.5 MG TAB PO (22:12)
[2017-08-19] MEDS: LATANOPROST 0.005% OPHTH SOLN 2.5 ML OU (22:13)
[2017-08-20 00:07] LABS: ANCA-ATYPICAL <1:20 titer (Neg:<1:20); CYTOPLASMIC NEUTROP AB ANCA-C <1:20 titer (Neg:<1:20); PERINUCLEAR AB ANCA-P <1:20 titer (Neg:<1:20)
[2017-08-20 06:56] LABS: BASO # 0.1 10^3/uL (0.0-0.2); BASO % 0.6 % (0.0-1.0); EOS # 0.7 10^3/uL (0.0-0.50); EOS % 8.9 % (0.0-3.0); HEMATOCRIT 29.1 % (36.0-47.0); IMMATURE GRANULOCYTE % 3.8 % (0-3.0); LYMPH % 13.1 % (24.0-44.0); MEAN CORPUSCULAR HEMOGLOBIN 32.7 pg (27.0-33.0); MEAN CORPUSCULAR HGB CONC 34.4 g/dl (32.0-36.5); MEAN CORPUSCULAR VOLUME 95.1 fl (80.0-96.0); MONO # 0.9 10^3/uL (0.0-0.8); MONO % 11.1 % (0.0-5.0); NEUTROPHILS % 62.5 % (36.0-66.0); PLATELET COUNT, AUTOMATED 294 10^3/uL (150-450); RED BLOOD COUNT 3.06 10^6/uL (4.00-5.40)
[2017-08-20 07:09] LABS: ANION GAP 7 MEQ/L (8-16); BLOOD UREA NITROGEN 47 MG/DL (7-18); CALCIUM LEVEL 8.1 MG/DL (8.8-10.2); CARBON DIOXIDE LEVEL 26 MEQ/L (21-32); CHLORIDE LEVEL 115 MEQ/L (98-107); CREATININE FOR GFR 1.55 MG/DL (0.55-1.30); GLOMERULAR FILTRATION RATE 33.7 (>32); GLUCOSE, FASTING 107 MG/DL (70-100); POTASSIUM SERUM 3.8 MEQ/L (3.5-5.1); SODIUM LEVEL 148 MEQ/L (136-145)
[2017-08-20] MEDS: FEBUXOSTAT 40 MG TABLET (ULORIC) PO (10:23)
[2017-08-20] MEDS: ESCITALOPRAM OXALATE 10 MG TAB (LEXAPRO) PO (10:23)
[2017-08-20] MEDS: predniSONE 20 MG TAB PO ×2 (10:24→12:22)
[2017-08-20] MEDS: METOPROLOL TART 25 MG TABLET PO ×3 (10:24→21:42)
[2017-08-20] MEDS: APIXABAN 2.5 MG TAB (ELIQUIS) PO ×2 (10:24→21:42)
[2017-08-20] MEDS: MULTIVITAMINS/MINERALS THERAP 1 TAB PO (10:24)
[2017-08-20] MEDS: DIGOXIN 0.125 MG TAB PO (10:25)
[2017-08-20] MEDS ORDERED: POLYVINYL ALCOHOL OPHTH SOLN 15 ML(LIQUITEARS) OU (12:15)
[2017-08-20] MEDS: PROPYLTHIOURACIL 50 MG TAB PO ×3 (12:22→21:42)
[2017-08-20] MEDS: raNITIdine SYRUP 150 MG/10 ML UDC PO ×2 (12:23→21:42)
[2017-08-20] MEDS: hydrOXYzine 25 MG TAB PO ×2 (12:23→21:42)
[2017-08-20] MEDS: TRIAMCINOLONE ACET 0.1% OINTMENT 80 GM TOP ×3 (12:24→21:43)
[2017-08-20] MEDS ORDERED: hydrOXYzine 25 MG TAB PO (16:00)
[2017-08-20] MEDS: ACETAMINOPHEN TAB 650MG DOSE (2X325MG) PO (21:43)
[2017-08-20] MEDS: LATANOPROST 0.005% OPHTH SOLN 2.5 ML OU (21:43)
[2017-08-21 07:39] LABS: HEMATOCRIT 26.3 % (36.0-47.0); HEMOGLOBIN 9.1 g/dl (12.0-15.5); MEAN CORPUSCULAR HEMOGLOBIN 32.4 pg (27.0-33.0); MEAN CORPUSCULAR HGB CONC 34.6 g/dl (32.0-36.5); MEAN CORPUSCULAR VOLUME 93.6 fl (80.0-96.0); PLATELET COUNT, AUTOMATED 266 10^3/uL (150-450); RED BLOOD COUNT 2.81 10^6/uL (4.00-5.40); RED CELL DISTRIBUTION WIDTH 15.2 % (11.5-14.5)
[2017-08-21 07:52] LABS: ANION GAP 7 MEQ/L (8-16); BLOOD UREA NITROGEN 43 MG/DL (7-18); CARBON DIOXIDE LEVEL 26 MEQ/L (21-32); CHLORIDE LEVEL 116 MEQ/L (98-107); CREATININE FOR GFR 1.29 MG/DL (0.55-1.30); GLOMERULAR FILTRATION RATE 41.7 (>32); GLUCOSE, FASTING 116 MG/DL (70-100); POTASSIUM SERUM 3.9 MEQ/L (3.5-5.1); SODIUM LEVEL 149 MEQ/L (136-145)
[2017-08-21 08:01] LABS: ADD MANUAL DIFFER YES; DIFF SLIDE NUMBER 7; POS COUNT POS FLAG; POSITIVE MORPH POS FLAG
[2017-08-21 09:25] LABS: ANISOCYTOSIS 2+; BANDS 3 % (< 11); EOSINOPHILS 1 % (0-5); LYMPHOCYTES 20 % (16-52); MONOCYTES 8 % (0-8); MYELOCYTES 3 % (0-0); NEUTROPHILS 65 % (35-75); PLATELET ESTIMATE NORMAL (NORMAL); POIKILOCYTOSIS 1+
[2017-08-21] MEDS: raNITIdine SYRUP 150 MG/10 ML UDC PO (09:55)
[2017-08-21] MEDS: ESCITALOPRAM OXALATE 10 MG TAB (LEXAPRO) PO (09:55)
[2017-08-21] MEDS: predniSONE 20 MG TAB PO (09:56)
[2017-08-21] MEDS: MULTIVITAMINS/MINERALS THERAP 1 TAB PO (09:56)
[2017-08-21] MEDS: APIXABAN 2.5 MG TAB (ELIQUIS) PO (09:56)
[2017-08-21] MEDS: DIGOXIN 0.125 MG TAB PO (09:57)
[2017-08-21] MEDS: PROPYLTHIOURACIL 50 MG TAB PO (09:57)
[2017-08-21] MEDS: hydrOXYzine 25 MG TAB PO (09:57)
[2017-08-21] MEDS: FEBUXOSTAT 40 MG TABLET (ULORIC) PO (09:57)
[2017-08-21] MEDS: METOPROLOL TART 25 MG TABLET PO (09:59)
[2017-08-21] MEDS: TRIAMCINOLONE ACET 0.1% OINTMENT 80 GM TOP (09:59)
== END 2017-08-21 11:55 | disposition home or self-care (01) | DRG 683 ==
LOC: M MS5PR 08-15 01:15 → M ED 17:56 → M ED INP 23:06
PROC: 0HBJXZX Excision of Left Upper Leg Skin, External Approach, Diagnostic (ICD-10-PCS; principal; 2017-08-15)
DX: N17.9 Acute kidney failure, unspecified (principal); I13.0 Hypertensive heart and chronic kidney disease with heart failure and stage 1 through stage 4 chronic kidney disease, or unspecified chronic kidney disease; I50.30 Unspecified diastolic (congestive) heart failure; F33.9 Major depressive disorder, recurrent, unspecified; E87.2 Acidosis; N12 Tubulo-interstitial nephritis, not specified as acute or chronic; T50.4X5A Adverse effect of drugs affecting uric acid metabolism, initial encounter; K58.9 Irritable bowel syndrome, unspecified; L29.9 Pruritus, unspecified; J45.909 Unspecified asthma, uncomplicated; N26.1 Atrophy of kidney (terminal); E79.0 Hyperuricemia without signs of inflammatory arthritis and tophaceous disease; H40.9 Unspecified glaucoma; F41.9 Anxiety disorder, unspecified; H35.30 Unspecified macular degeneration; I48.91 Unspecified atrial fibrillation; N18.3 Chronic kidney disease, stage 3 (moderate); E05.90 Thyrotoxicosis, unspecified without thyrotoxic crisis or storm; Z88.2 Allergy status to sulfonamides; Z79.899 Other long term (current) drug therapy; Z79.01 Long term (current) use of anticoagulants; Z87.442 Personal history of urinary calculi

== ENCOUNTER 2017-09-18 14:10 | Inpatient (IN) | payer MEDICARE ==
[2017-09-18] MEDS ORDERED: METOPROLOL 5 MG/5 ML VIAL As Ordered (14:40)
[2017-09-18] MEDS: METOPROLOL 5 MG/5 ML VIAL IV ×3 (14:45→14:55)
[2017-09-18] MEDS: METOPROLOL TART 25 MG TABLET PO (14:55)
[2017-09-18 14:59] LABS: BASO % 0.4 % (0.0-1.0); EOS # 0.3 10^3/uL (0.0-0.50); EOS % 2.9 % (0.0-3.0); HEMATOCRIT 34.7 % (36.0-47.0); HEMOGLOBIN 11.4 g/dl (12.0-15.5); IMMATURE GRANULOCYTE % 0.6 % (0-3.0); LYMPH # 1.7 10^3/uL (1.5-4.5); LYMPH % 16.7 % (24.0-44.0); MEAN CORPUSCULAR HEMOGLOBIN 33.4 pg (27.0-33.0); MEAN CORPUSCULAR HGB CONC 32.9 g/dl (32.0-36.5); MEAN CORPUSCULAR VOLUME 101.8 fl (80.0-96.0); MONO % 9.8 % (0.0-5.0); NEUTROPHILS % 69.6 % (36.0-66.0); PLATELET COUNT, AUTOMATED 213 10^3/uL (150-450); RED BLOOD COUNT 3.41 10^6/uL (4.00-5.40); RED CELL DISTRIBUTION WIDTH 15.6 % (11.5-14.5); WHITE BLOOD COUNT 10.1 10^3/uL (4.0-10.0)
[2017-09-18 15:14] LABS: INR 1.19; PROTHROMBIN TIME 15.3 SECONDS (12.1-14.4)
[2017-09-18 15:18] LABS: ALBUMIN 2.9 GM/DL (3.2-5.2); ALBUMIN/GLOBULIN RATIO 0.69 (1.00-1.93); ALKALINE PHOSPHATASE 76 U/L (45-117); ALT/SGPT 24 U/L (12-78); ANION GAP 8 MEQ/L (8-16); AST/SGOT 12 U/L (7-37); BILIRUBIN,DIRECT 0.1 MG/DL (0.0-0.2); BILIRUBIN,TOTAL 0.4 MG/DL (0.2-1.0); BLOOD UREA NITROGEN 20 MG/DL (7-18); CALCIUM LEVEL 8.2 MG/DL (8.8-10.2); CARBON DIOXIDE LEVEL 26 MEQ/L (21-32); CHLORIDE LEVEL 112 MEQ/L (98-107); CPK CREATINE PHOSPHOKINASE 23 U/L (26-192); CREATININE FOR GFR 1.33 MG/DL (0.55-1.30); FREE T4 1.32 NG/DL (0.76-1.46); GLOMERULAR FILTRATION RATE 40.3 (>32); GLUCOSE, FASTING 114 MG/DL (70-100); LIPASE 398 U/L (73-393); POTASSIUM SERUM 4.1 MEQ/L (3.5-5.1); SODIUM LEVEL 146 MEQ/L (136-145); TOTAL PROTEIN 7.1 GM/DL (6.4-8.2); TROPONIN I 0.02 NG/ML (< 0.10)
[2017-09-18 15:23] LABS: CK-MB VALUE MASS < 1.0 NG/ML (<3.6); MB/CK RELATIVE INDEX 4.34 (< OR =4); NT-PRO BNP 21715 PG/ML (<450)
[2017-09-18] MEDS ORDERED: IPRATROPIUM 0.5MG/ALBUTEROL 2.5MG INH SOL UD 3ML (DUONEB)(J7620) NEB (18:00)
[2017-09-18] MEDS ORDERED: ACETAMINOPHEN 500 MG TAB PO (18:30)
[2017-09-18 19:12] LABS: MAGNESIUM LEVEL 1.9 MG/DL (1.8-2.4)
[2017-09-18] MEDS: METOPROLOL TART 50 MG TAB PO (20:16)
[2017-09-18] MEDS: LATANOPROST 0.005% OPHTH SOLN 2.5 ML OU (21:38)
[2017-09-18] MEDS: LORazepam 0.5 MG TAB PO (21:38)
[2017-09-18] MEDS: PROPYLTHIOURACIL 50 MG TAB PO (21:38)
[2017-09-18] MEDS: ENOXAPARIN 60 MG/0.6 ML SYR (J1650) SC (21:38)
[2017-09-18 21:54] LABS: TROPONIN I < 0.02 NG/ML (< 0.10)
[2017-09-19 04:59] LABS: HEMATOCRIT 30.6 % (36.0-47.0); HEMOGLOBIN 9.9 g/dl (12.0-15.5); MEAN CORPUSCULAR HEMOGLOBIN 32.5 pg (27.0-33.0); MEAN CORPUSCULAR HGB CONC 32.4 g/dl (32.0-36.5); MEAN CORPUSCULAR VOLUME 100.3 fl (80.0-96.0); PLATELET COUNT, AUTOMATED 177 10^3/uL (150-450); RED BLOOD COUNT 3.05 10^6/uL (4.00-5.40); RED CELL DISTRIBUTION WIDTH 15.5 % (11.5-14.5); WHITE BLOOD COUNT 7.8 10^3/uL (4.0-10.0)
[2017-09-19] MEDS: METOPROLOL TART 50 MG TAB PO ×4 (05:29→23:50)
[2017-09-19 05:30] LABS: ANION GAP 8 MEQ/L (8-16); BLOOD UREA NITROGEN 20 MG/DL (7-18); CALCIUM LEVEL 7.6 MG/DL (8.8-10.2); CARBON DIOXIDE LEVEL 25 MEQ/L (21-32); CHLORIDE LEVEL 114 MEQ/L (98-107); GLOMERULAR FILTRATION RATE 45.3 (>32); GLUCOSE, FASTING 115 MG/DL (70-100); POTASSIUM SERUM 4.1 MEQ/L (3.5-5.1); SODIUM LEVEL 147 MEQ/L (136-145); TROPONIN I 0.02 NG/ML (< 0.10)
[2017-09-19] MEDS: ESCITALOPRAM OXALATE 10 MG TAB (LEXAPRO) PO (09:23)
[2017-09-19] MEDS: MULTIVITAMINS/MINERALS THERAP 1 TAB PO (09:23)
[2017-09-19] MEDS: FUROSEMIDE 20 MG/2 ML VIAL (J1940) IV (09:24)
[2017-09-19] MEDS: PROPYLTHIOURACIL 50 MG TAB PO ×2 (09:24→20:39)
[2017-09-19] MEDS: ENOXAPARIN 60 MG/0.6 ML SYR (J1650) SC ×2 (09:24→20:39)
[2017-09-19 12:24] LABS: HEMATOCRIT 33.4 % (36.0-47.0); HEMOGLOBIN 10.9 g/dl (12.0-15.5); MEAN CORPUSCULAR HEMOGLOBIN 32.7 pg (27.0-33.0); MEAN CORPUSCULAR HGB CONC 32.6 g/dl (32.0-36.5); MEAN CORPUSCULAR VOLUME 100.3 fl (80.0-96.0); PLATELET COUNT, AUTOMATED 224 10^3/uL (150-450); RED BLOOD COUNT 3.33 10^6/uL (4.00-5.40); RED CELL DISTRIBUTION WIDTH 15.6 % (11.5-14.5); WHITE BLOOD COUNT 9.1 10^3/uL (4.0-10.0)
[2017-09-19 13:25] LABS: ANION GAP 9 MEQ/L (8-16); BLOOD UREA NITROGEN 22 MG/DL (7-18); CALCIUM LEVEL 8.1 MG/DL (8.8-10.2); CARBON DIOXIDE LEVEL 26 MEQ/L (21-32); CHLORIDE LEVEL 111 MEQ/L (98-107); CREATININE FOR GFR 1.26 MG/DL (0.55-1.30); GLOMERULAR FILTRATION RATE 42.9 (>32); GLUCOSE, FASTING 112 MG/DL (70-100); MAGNESIUM LEVEL 1.8 MG/DL (1.8-2.4); POTASSIUM SERUM 4.3 MEQ/L (3.5-5.1); SODIUM LEVEL 146 MEQ/L (136-145)
[2017-09-19] MEDS ORDERED: MAG SULF 1GM/100ML (MAG RUN) 1 GM in APPROPRIATE DILUENT 1 EA IV (16:45)
[2017-09-19] MEDS: MAG SULF 1GM/100ML (MAG RUN) 1 GM in APPROPRIATE DILUENT 1 EA IV (17:53)
[2017-09-19] MEDS: LORazepam 0.5 MG TAB PO (20:39)
[2017-09-19] MEDS: LATANOPROST 0.005% OPHTH SOLN 2.5 ML OU (20:54)
[2017-09-20] MEDS: METOPROLOL TART 50 MG TAB PO ×4 (05:25→23:26)
[2017-09-20 06:28] LABS: HEMATOCRIT 31.2 % (36.0-47.0); HEMOGLOBIN 10.3 g/dl (12.0-15.5); PLATELET COUNT, AUTOMATED 200 10^3/uL (150-450); RED BLOOD COUNT 3.12 10^6/uL (4.00-5.40); RED CELL DISTRIBUTION WIDTH 15.4 % (11.5-14.5); WHITE BLOOD COUNT 7.9 10^3/uL (4.0-10.0)
[2017-09-20 06:47] LABS: ANION GAP 8 MEQ/L (8-16); BLOOD UREA NITROGEN 23 MG/DL (7-18); CALCIUM LEVEL 7.8 MG/DL (8.8-10.2); CARBON DIOXIDE LEVEL 27 MEQ/L (21-32); CHLORIDE LEVEL 110 MEQ/L (98-107); CREATININE FOR GFR 1.37 MG/DL (0.55-1.30); GLOMERULAR FILTRATION RATE 38.9 (>32); GLUCOSE, FASTING 110 MG/DL (70-100); POTASSIUM SERUM 3.7 MEQ/L (3.5-5.1); SODIUM LEVEL 145 MEQ/L (136-145)
[2017-09-20] MEDS: PROPYLTHIOURACIL 50 MG TAB PO ×2 (09:42→20:43)
[2017-09-20] MEDS: MULTIVITAMINS/MINERALS THERAP 1 TAB PO (09:42)
[2017-09-20] MEDS: ESCITALOPRAM OXALATE 10 MG TAB (LEXAPRO) PO (09:43)
[2017-09-20] MEDS: ENOXAPARIN 60 MG/0.6 ML SYR (J1650) SC ×2 (09:43→20:44)
[2017-09-20] MEDS ORDERED: SLF 3 ML SYR IV (17:00)
[2017-09-20] MEDS: LATANOPROST 0.005% OPHTH SOLN 2.5 ML OU (20:42)
[2017-09-20] MEDS: LORazepam 0.5 MG TAB PO (20:43)
[2017-09-20] MEDS: SLF 3 ML SYR IV (22:00)
[2017-09-21 05:18] LABS: HEMATOCRIT 30.7 % (36.0-47.0); HEMOGLOBIN 10.1 g/dl (12.0-15.5); MEAN CORPUSCULAR HEMOGLOBIN 32.9 pg (27.0-33.0); MEAN CORPUSCULAR HGB CONC 32.9 g/dl (32.0-36.5); PLATELET COUNT, AUTOMATED 203 10^3/uL (150-450); RED BLOOD COUNT 3.07 10^6/uL (4.00-5.40); WHITE BLOOD COUNT 7.7 10^3/uL (4.0-10.0)
[2017-09-21 05:34] LABS: ANION GAP 5 MEQ/L (8-16); BLOOD UREA NITROGEN 22 MG/DL (7-18); CALCIUM LEVEL 7.9 MG/DL (8.8-10.2); CARBON DIOXIDE LEVEL 28 MEQ/L (21-32); CHLORIDE LEVEL 111 MEQ/L (98-107); CREATININE FOR GFR 1.23 MG/DL (0.55-1.30); GLOMERULAR FILTRATION RATE 44.1 (>32); GLUCOSE, FASTING 116 MG/DL (70-100); POTASSIUM SERUM 3.7 MEQ/L (3.5-5.1); SODIUM LEVEL 144 MEQ/L (136-145)
[2017-09-21] MEDS: SLF 3 ML SYR IV ×3 (06:00→21:31)
[2017-09-21] MEDS: METOPROLOL TART 50 MG TAB PO ×3 (06:25→17:14)
[2017-09-21] MEDS: POTASSIUM CHLORIDE 10 MEQ SR TABLET PO ×2 (09:14→21:27)
[2017-09-21] MEDS: ENOXAPARIN 60 MG/0.6 ML SYR (J1650) SC ×2 (09:14→21:30)
[2017-09-21] MEDS: MULTIVITAMINS/MINERALS THERAP 1 TAB PO (09:15)
[2017-09-21] MEDS: PROPYLTHIOURACIL 50 MG TAB PO ×2 (09:15→21:28)
[2017-09-21] MEDS: ESCITALOPRAM OXALATE 10 MG TAB (LEXAPRO) PO (09:15)
[2017-09-21] MEDS: predniSONE 20 MG TAB PO (10:54)
[2017-09-21] MEDS: FUROSEMIDE 40 MG/4 ML VIAL (J1940) IV (10:54)
[2017-09-21] MEDS: DIGOXIN INJ 0.5 MG/2 ML AMP (J1160) IV (19:43)
[2017-09-21] MEDS: LATANOPROST 0.005% OPHTH SOLN 2.5 ML OU (21:00)
[2017-09-21] MEDS: LORazepam 0.5 MG TAB PO (21:27)
[2017-09-22] MEDS: BISOPROLOL FUM 2.5 MG PER 1/2TAB PO ×3 (00:10→11:58)
[2017-09-22] MEDS: POTASSIUM CHLORIDE 10 MEQ SR TABLET PO (00:10)
[2017-09-22 05:47] LABS: HEMATOCRIT 30.8 % (36.0-47.0); HEMOGLOBIN 10.1 g/dl (12.0-15.5); MEAN CORPUSCULAR HEMOGLOBIN 33.1 pg (27.0-33.0); MEAN CORPUSCULAR HGB CONC 32.8 g/dl (32.0-36.5); PLATELET COUNT, AUTOMATED 242 10^3/uL (150-450); RED BLOOD COUNT 3.05 10^6/uL (4.00-5.40)
[2017-09-22 05:58] LABS: ANION GAP 6 MEQ/L (8-16); BLOOD UREA NITROGEN 25 MG/DL (7-18); CALCIUM LEVEL 7.9 MG/DL (8.8-10.2); CARBON DIOXIDE LEVEL 27 MEQ/L (21-32); CHLORIDE LEVEL 113 MEQ/L (98-107); GLUCOSE, FASTING 108 MG/DL (70-100); SODIUM LEVEL 146 MEQ/L (136-145)
[2017-09-22] MEDS: SLF 3 ML SYR IV ×3 (06:20→20:14)
[2017-09-22] MEDS: ENOXAPARIN 60 MG/0.6 ML SYR (J1650) SC ×2 (09:52→20:11)
[2017-09-22] MEDS: TORSEMIDE 10 MG TABLET PO (09:52)
[2017-09-22] MEDS: MULTIVITAMINS/MINERALS THERAP 1 TAB PO (09:52)
[2017-09-22] MEDS: SPIRONOLACTONE 12.5MG PER 1/2 TABLET PO (09:53)
[2017-09-22] MEDS: ESCITALOPRAM OXALATE 10 MG TAB (LEXAPRO) PO (09:53)
[2017-09-22] MEDS: PROPYLTHIOURACIL 50 MG TAB PO ×2 (09:53→20:11)
[2017-09-22] MEDS: DIGOXIN 0.125 MG TAB PO (09:54)
[2017-09-22] MEDS: DIGOXIN INJ 0.5 MG/2 ML AMP (J1160) IV (11:59)
[2017-09-22] MEDS: LATANOPROST 0.005% OPHTH SOLN 2.5 ML OU (20:11)
[2017-09-22] MEDS: LORazepam 0.5 MG TAB PO (20:12)
[2017-09-22] MEDS: BISOPROLOL FUMARATE 5 MG TAB PO (20:13)
[2017-09-23 05:15] LABS: HEMATOCRIT 33.5 % (36.0-47.0); HEMOGLOBIN 10.7 g/dl (12.0-15.5); MEAN CORPUSCULAR HEMOGLOBIN 32.4 pg (27.0-33.0); MEAN CORPUSCULAR HGB CONC 31.9 g/dl (32.0-36.5); MEAN CORPUSCULAR VOLUME 101.5 fl (80.0-96.0); PLATELET COUNT, AUTOMATED 261 10^3/uL (150-450); WHITE BLOOD COUNT 6.2 10^3/uL (4.0-10.0)
[2017-09-23 05:35] LABS: ANION GAP 3 MEQ/L (8-16); BLOOD UREA NITROGEN 23 MG/DL (7-18); CALCIUM LEVEL 7.9 MG/DL (8.8-10.2); CARBON DIOXIDE LEVEL 31 MEQ/L (21-32); CHLORIDE LEVEL 113 MEQ/L (98-107); CREATININE FOR GFR 1.42 MG/DL (0.55-1.30); GLOMERULAR FILTRATION RATE 37.3 (>32); GLUCOSE, FASTING 90 MG/DL (70-100); POTASSIUM SERUM 4.8 MEQ/L (3.5-5.1); SODIUM LEVEL 147 MEQ/L (136-145)
[2017-09-23] MEDS: SLF 3 ML SYR IV ×3 (06:00→21:35)
[2017-09-23] MEDS: ESCITALOPRAM OXALATE 10 MG TAB (LEXAPRO) PO (07:44)
[2017-09-23] MEDS: DIGOXIN 0.125 MG TAB PO (07:44)
[2017-09-23] MEDS: SPIRONOLACTONE 12.5MG PER 1/2 TABLET PO (07:44)
[2017-09-23] MEDS: MULTIVITAMINS/MINERALS THERAP 1 TAB PO (07:44)
[2017-09-23] MEDS: PROPYLTHIOURACIL 50 MG TAB PO ×2 (07:44→21:34)
[2017-09-23] MEDS: ENOXAPARIN 60 MG/0.6 ML SYR (J1650) SC ×2 (07:45→21:34)
[2017-09-23] MEDS: BISOPROLOL FUMARATE 5 MG TAB PO ×3 (07:45→17:30)
[2017-09-23] MEDS: TORSEMIDE 10 MG TABLET PO (07:45)
[2017-09-23] MEDS: LORazepam 0.5 MG TAB PO (21:34)
[2017-09-23] MEDS: LATANOPROST 0.005% OPHTH SOLN 2.5 ML OU (21:34)
[2017-09-24] MEDS: BISOPROLOL FUMARATE 5 MG TAB PO ×2 (00:01→05:45)
[2017-09-24] MEDS: SLF 3 ML SYR IV (05:42)
[2017-09-24 05:58] LABS: HEMATOCRIT 34.9 % (36.0-47.0); HEMOGLOBIN 11.1 g/dl (12.0-15.5); MEAN CORPUSCULAR HEMOGLOBIN 32.3 pg (27.0-33.0); MEAN CORPUSCULAR HGB CONC 31.8 g/dl (32.0-36.5); MEAN CORPUSCULAR VOLUME 101.5 fl (80.0-96.0); PLATELET COUNT, AUTOMATED 287 10^3/uL (150-450); RED BLOOD COUNT 3.44 10^6/uL (4.00-5.40); RED CELL DISTRIBUTION WIDTH 14.9 % (11.5-14.5); WHITE BLOOD COUNT 5.9 10^3/uL (4.0-10.0)
[2017-09-24 06:32] LABS: ANION GAP 8 MEQ/L (8-16); BLOOD UREA NITROGEN 26 MG/DL (7-18); CARBON DIOXIDE LEVEL 29 MEQ/L (21-32); CHLORIDE LEVEL 110 MEQ/L (98-107); CREATININE FOR GFR 1.43 MG/DL (0.55-1.30); DIGOXIN LEVEL 2.2 NG/ML (0.5-2.0); GLUCOSE, FASTING 92 MG/DL (70-100); POTASSIUM SERUM 4.6 MEQ/L (3.5-5.1); SODIUM LEVEL 147 MEQ/L (136-145)
[2017-09-24] MEDS: MULTIVITAMINS/MINERALS THERAP 1 TAB PO (08:47)
[2017-09-24] MEDS: TORSEMIDE 10 MG TABLET PO (08:48)
[2017-09-24] MEDS: PROPYLTHIOURACIL 50 MG TAB PO (08:48)
[2017-09-24] MEDS: ESCITALOPRAM OXALATE 10 MG TAB (LEXAPRO) PO (08:48)
[2017-09-24] MEDS: ENOXAPARIN 60 MG/0.6 ML SYR (J1650) SC (08:48)
[2017-09-24] MEDS ORDERED: BISOPROLOL FUMARATE 10 MG TAB PO (21:00)
[2017-09-25] MEDS ORDERED: DIGOXIN 0.0625MG PER 1/2TABLET PO (09:00)
== END 2017-09-24 16:00 | disposition home or self-care (01) | DRG 308 ==
LOC: M PCU 09-19 17:15 → M ED 14:10 → M ED INP 18:23
DX: I48.1 Persistent atrial fibrillation (principal); I50.33 Acute on chronic diastolic (congestive) heart failure; I13.0 Hypertensive heart and chronic kidney disease with heart failure and stage 1 through stage 4 chronic kidney disease, or unspecified chronic kidney disease; I42.9 Cardiomyopathy, unspecified; N18.3 Chronic kidney disease, stage 3 (moderate); H26.9 Unspecified cataract; E05.90 Thyrotoxicosis, unspecified without thyrotoxic crisis or storm; I50.810 Right heart failure, unspecified; M10.9 Gout, unspecified; I27.81 Cor pulmonale (chronic); I34.0 Nonrheumatic mitral (valve) insufficiency; I35.1 Nonrheumatic aortic (valve) insufficiency; F41.9 Anxiety disorder, unspecified; J45.909 Unspecified asthma, uncomplicated; F32.9 Major depressive disorder, single episode, unspecified; H40.9 Unspecified glaucoma; Z90.710 Acquired absence of both cervix and uterus; Z90.49 Acquired absence of other specified parts of digestive tract; Z88.2 Allergy status to sulfonamides; Z87.891 Personal history of nicotine dependence; Z79.899 Other long term (current) drug therapy; Z79.01 Long term (current) use of anticoagulants

== ENCOUNTER → 2017-10-02 | Outpatient (REF) | payer MEDICARE ==
[2017-10-02 15:08] LABS: DIGOXIN LEVEL 1.2 NG/ML (0.5-2.0)
== END ==
LOC: M LAB REF 14:11
DX: I48.91 Unspecified atrial fibrillation (principal)
CPT/HCPCS: 80162

== ENCOUNTER → 2017-11-14 | Outpatient (CLI) | payer MEDICARE | LOC: M RAD 12:24 | DX: N28.89 Other specified disorders of kidney and ureter (principal) | CPT/HCPCS: 76775 ==

== ENCOUNTER → 2017-12-11 | Outpatient (REF) | payer MEDICARE | LOC: M LAB REF 15:49 | DX: M79.673 Pain in unspecified foot (principal); N18.3 Chronic kidney disease, stage 3 (moderate) | CPT/HCPCS: 84550 ==

== ENCOUNTER → 2018-03-21 | Outpatient (REF) | payer MEDICARE ==
[~2018-03-21] MED LIST changes: +ACET-683 PO; +BANO25TA PO; +BENA25CA4 PO; +BISO10TA PO; +DIGO0.12 PO; +FEBU40TA PO; +FLOM0.4C39 PO; -FLOM5CAP PO; +HYDR-3363 PO; -ISOVUE-370 76% 100ML VIAL (Q9967) As Ordered ONE; +MULT1TAB10 PO; +PRED10TA2 PO; +RANI15TA PO; +SYSTSOL14 OU; +TRIA1OI80 TOP; +VITMTA PO
[2018-03-25 01:34] LABS: G6PD2 4.04 x10E6/uL (3.77-5.28); G6PD3 263 (146-376)
== END ==
LOC: M LAB REF 17:13
PROVIDERS: ATTEND Internal Medicine Nephrology
DX: M1A.30X0 Chronic gout due to renal impairment, unspecified site, without tophus (tophi) (principal)

== ENCOUNTER 2018-04-15 16:00 | Inpatient (IN) | payer MEDICARE ==
[~2018-04-15] VITALS: Ht 154.9 cm; Wt 64.1 kg
[2018-04-15] MEDS ORDERED: ONDANSETRON 4MG/2ML VIAL (J2405) IV ONE (16:30)
[2018-04-15] MEDS ORDERED: NS 500 ML IV ONE (16:30)
[2018-04-15 17:01] LABS: BASO % 0.5 % (0.0-1.0); EOS # 0.1 10^3/uL (0.0-0.50); EOS % 1.4 % (0.0-3.0); HEMOGLOBIN 14.3 g/dl (12.0-15.5); LYMPH % 22.7 % (24.0-44.0); MEAN CORPUSCULAR HEMOGLOBIN 32.2 pg (27.0-33.0); MEAN CORPUSCULAR HGB CONC 33.3 g/dl (32.0-36.5); MEAN CORPUSCULAR VOLUME 96.8 fl (80.0-96.0); MONO # 0.7 10^3/uL (0.0-0.8); MONO % 8.2 % (0.0-5.0); NEUTROPHILS # 5.8 10^3/uL (1.8-7.7); NEUTROPHILS % 66.9 % (36.0-66.0); PLATELET COUNT, AUTOMATED 273 10^3/uL (150-450); RED BLOOD COUNT 4.44 10^6/uL (4.00-5.40); WHITE BLOOD COUNT 8.7 10^3/uL (4.0-10.0)
[2018-04-15 17:28] LABS: ALBUMIN 3.8 GM/DL (3.2-5.2); ALT/SGPT 20 U/L (12-78); AMYLASE 80 U/L (25-115); BILIRUBIN,TOTAL 0.5 MG/DL (0.2-1.0); BLOOD UREA NITROGEN 41 MG/DL (7-18); CALCIUM LEVEL 8.9 MG/DL (8.8-10.2); CARBON DIOXIDE LEVEL 31 MEQ/L (21-32); CHLORIDE LEVEL 98 MEQ/L (98-107); CK-MB VALUE MASS < 1.0 NG/ML (<3.6); CPK CREATINE PHOSPHOKINASE 33 U/L (26-192); CREATININE FOR GFR 2.13 MG/DL (0.55-1.30); GLOMERULAR FILTRATION RATE 23.3 (>32); GLUCOSE, FASTING 111 MG/DL (70-100); LIPASE 552 U/L (73-393); MB/CK RELATIVE INDEX 3.03 (< OR =4); POTASSIUM SERUM 3.2 MEQ/L (3.5-5.1); SODIUM LEVEL 139 MEQ/L (136-145); TOTAL PROTEIN 8.5 GM/DL (6.4-8.2); TROPONIN I 0.02 NG/ML (< 0.10)
--- NOTE | 2018-04-15 18:09 | REP ---
CT of the abdomen pelvis without IV and oral contrast for abdominal pain: Comparison is the CT study of the abdomen pelvis without and with IV contrast dated 11/12/2016. The visualized lung larkin are unremarkable. The unenhanced hepatic parenchyma is homogeneous. There are surgical clips in the gallbladder fossa. The head, body and tail of the pancreas are unremarkable and unchanged. The spleen is normal size and unremarkable. The adrenals are unremarkable. The patients known multiple left renal masses are again identified, not significantly changed in size although better appreciated on the prior study with IV contrast. The multiple right renal cysts are not significantly changed. The abdominal aorta is unremarkable. There is no periaortic adenopathy or mass. There is no bowel distension or obstruction. There is sigmoid colon diverticulosis without diverticulitis. Pelvis: There is a pessary in the vaginal vault, unchanged. The bladder is unremarkable. There is a hysterectomy. There are no masses or cysts in the adnexa. There is internal fixation of the left hip. Impression: There is no ascites, adenopathy or mass. Except for the patient's known multiple left renal masses are not significantly changed. The known of multiple right renal cysts are not significantly changed. No bowel obstruction or distension. Diverticulosis without diverticulitis. A pessary in the vaginal vault. Electronically Signed by Kamari Coughlin MD 04/15/2018 06:00 P
[2018-04-15] MEDS ORDERED: POTASSIUM CHLORIDE 10 MEQ SR TABLET PO ONE (18:30)
[2018-04-15] MEDS ORDERED: CEFDINIR 300 MG CAP (OMNICEF) PO ONE (18:45)
[2018-04-15] MEDS ORDERED: DIGO0.12 PO (20:08)
[2018-04-15] MEDS ORDERED: POTA1TAB23 PO (20:10)
[2018-04-15] MEDS ORDERED: ROCA0.25 PO (20:10)
[2018-04-15] MEDS ORDERED: FURO40TA2 PO (20:12)
[2018-04-15] MEDS ORDERED: NS 1,000 ML IV ONE (20:45)
[2018-04-15] MEDS ORDERED: ESCITALOPRAM OXALATE 10 MG TAB (LEXAPRO) PO SCH (21:00)
[2018-04-15] MEDS: NS 1,000 ML IV SCH (21:24)
--- NOTE | 2018-04-15 22:46 | HPEPDOC ---
[facility] Medical History & Physical Date of Admission Apr 15, 2018 Attending Physician: WALDO JADE MD History and Physical CHIEF COMPLAINT: Abdominal pain HISTORY OF PRESENT ILLNESS: Patient is an 88 year old female who presented to the [facility] ER with complaint of abdominal pain since Saturday04/11/2018. Patient states that she developed an achy feeling in her stomach last Saturday. She admits to some nausea but denies any vomiting. She does note chills starting on Saturday but states they have since resolved. She denies any fevers. She does admit to several episodes of non-bloody diarrhea. She states that since Saturday she has had decreased PO intake due to her stomach aches. Patient states that her [id number] was recently ill with similar symptoms. Patient was brought to the Emergency room by her son. In the emergency room, patient was found to have an acute on chronic kidney injury. She received abdominal imaging which was unrevealing with exception to a left renal cyst/mass which has remained unchang ed from previous imaging. She was additionally found to have a urinary tract infection. Patient does admit to urinary frequency/urgency. She received 300mg PO Cefdinir in the ER. Hospitalist were consulted and patient was admitted to general medical floor PAST MEDICAL HISTORY: 1. Atrial fibrillation anticoagulated on Eliquis 2. CKD Stage III 3. Anxiety/Depression 4. Hyperthyroidism PAST SURGICAL HISTORY: 1. Total abdominal hysterectomy 2. Cholecystectomy 3. Thyroid surgery 4. Hip replacement SOCIAL HISTORY: Patient is a former smoker. Denies alcohol or illicit drug use FAMILY HISTORY: Admits to family history of pancreatic cancer, hypertension, and diabetes ALLERGIES: Please see below. REVIEW OF SYSTEMS: CONSTITUTIONAL: Admits to chills. Denies fevers, unintentional weight loss or weight gain HEENT: Denies cough or sputum production. Denies posterior drainage CARDIOVASCULAR: Denies feelings of palpitations or the heart racing. RESPIRATORY: Denies shortness of breath GASTROINTESTINAL: Admits to abdominal pain. Admits to nausea and diarrhea. Denies vomiting GENITOURINARY: Admits to increased frequency and urgency. Denies dysuria NEUROLOGICAL: Denies changes in speech. Denies confusion PSYCHIATRIC: Admits to depression and anxiety ENDOCRINE: Denies heat or cold intolerance HEMATOLOGIC/LYMPHATIC: Denies easy bruising or bleeding HOME MEDICATIONS: Please see below. PHYSICAL EXAMINATION: VITAL SIGNS: Temperature 97.7, pulse 56, respiratory rate 16, blood pressure 146/58, pulse oximetry 94% on room air. GENERAL APPEARANCE: Patient is awake, alert, and oriented. She is laying comfortably on bed. She appears in no acute distress. She is well nourished HEENT: Atraumatic, normocephalic. Eyes are non-icteric. Mucous membranes are pink and moist. Trachea is midline CARDIOVASCULAR: Irregularly irregular rhythm. Normal rate. No clicks, rubs, or murmurs noted. No JVD. No carotid bruits LUNGS: Clear vesicular lung sound bilaterally with good respiratory effort. No wheezes, rhonci, or rales ABDOMEN: Soft, nondistended. Slight suprapubic tenderness to palpation. Positive bowel sounds through out. No hernia noted EXTREMITIES: No edema. 2+ posterior tibial pulses bilaterally. 2+ radial pulses bilaterally. Capillary refill <2 seconds NEUROLOGICAL: Normal speech. PSYCHIATRIC: Mood and affect appear appropriate LABORATORY DATA: See below. IMAGING CT of the abdomen pelvis without IV and oral contrast for abdominal pain: Comparison is the CT study of the abdomen pelvis without and with IV contrast dated 11/12/2016. The visualized lung larkin are unremarkable. The unenhanced hepatic parenchyma is homogeneous. There are surgical clips in the gallbladder fossa. The head, body and tail of the pancreas are unremarkable and unchanged. The spleen is normal size and unremarkable. The adrenals are unremarkable. The patients known multiple left renal masses are again identified, not significantly changed in size although better appreciated on the prior study with IV contrast. The multiple right renal cysts are not significantly changed. The abdominal aorta is unremarkable. There is no periaortic adenopathy or mass. There is no bowel distension or obstruction. There is sigmoid colon diverticulosis without diverticulitis. Pelvis: There is a pessary in the vaginal vault, unchanged. The bladder is unremarkable. There is a hysterectomy. There are no masses or cysts in the adnexa. There is internal fixation of the left hip. Impression: There is no ascites, adenopathy or mass. Except for the patient's known multiple left renal masses are not significantly changed. The known of multiple right renal cysts are not significantly changed. No bowel obstruction or distension. Diverticulosis without diverticulitis. A pessary in the vaginal vault. Electronically Signed by Kamari Coughlin MD 04/15/2018 06:00 MICROBIOLOGY: Please see below. ASSESSMENT and PLAN 1. Acute Gastroenteritis likely viral -Patient is presenting with abdominal pain, non-bloody diarrhea, and nausea for several days. She has been afebrile and denies any fevers. Her [id number] was recently ill with similar symptoms. -Plan for supportive care -GI panel currently pending -Patient to receive IV fluids 2. Acute on Chronic Kidney Injury -Likely secondary to dehydration from poor oral intake and diarrhea. CBC shows elevated hemoglobin likely hemoconcentration from dehydration -IV fluid hydration -Avoid nephrotoxic medications -Will trend Creatinine 3. UTI -Patient has complaint of urinary frequency and urgency with a positive UA. She is currently afebrile. CT abdomen revealed no signs of hydronephrosis -Patient received 300 mg cefdinir PO in the ER -Continue patient on Rocephin 1 gm for 3 days 4. History of Atrial Fibrillation -Continue patients home medications. -Digoxin 125 mcg 3 times a week -Bisoprolol -Anticoagulation with Eliquis 5. Depression -Continue Escitalopram 6. Glaucoma -Continue Lantoprost 7. Insomnia -Continue Ativan 8. Hyperthyroidism -Continue PTU 9. DVT prophylaxis -Patient chronically anticoagulated on Eliquis Vital Signs Vital Signs Date Time Temp Pulse Resp B/P (MAP) Pulse Ox O2 Delivery O2 Flow Rate FiO2 04/15/18 20:15 97.7 56 16 146/58 (87) 94 Room Air Laboratory Data Labs 24H Laboratory Tests 2 04/15/18 16:50: Immature Granulocyte % (Auto) 0.3, White Blood Count 8.7, Red Blood Count 4.44, Hemoglobin 14.3, Hematocrit 43.0, Mean Corpuscular Volume 96.8H, Mean Corpuscu lar Hemoglobin 32.2, Mean Corpuscular Hemoglobin Concent 33.3, Red Cell Distribution Width 12.6, Platelet Count 273, Neutrophils (%) (Auto) 66.9H, Lymphocytes (%) (Auto) 22.7L, Monocytes (%) (Auto) 8.2H, Eosinophils (%) (Auto) 1.4, Basophils (%) (Auto) 0.5, Neutrophils # (Auto) 5.8, Lymphocytes # (Auto) 2.0, Monocytes # (Auto) 0.7, Eosinophils # (Auto) 0.1, Basophils # (Auto) 0.0, Nucleated Red Blood Cells % (auto) 0.0, Urine Color YELLOW, Urine Appearance CLOUDYH, Urine pH 5.0, Urine Specific [place] 1.010, Urine Protein NEGATIVE, Urine Glucose (UA) NEGATIVE, Urine Ketones NEGATIVE, Urine Blood 1+H, Urine Nitrite NEGATIVE, Urine Bilirubin NEGATIVE, Urine Urobilinogen 0.2, Urine Leukocyte Esterase 3+H, Urine WBC (Auto) 173H, Urine RBC (Auto) 39H, Urine Hyaline Casts (Auto) 0, Urine Bacteria (Auto) 3+H, Urine Squamous Epithelial Cells 7, Urine Transitional Epithelial Cells 1, Urine Mucus (Auto) SMALL, Urine Yeast-Like Cells (Auto) SMALLH, Urine Sperm (Auto) , Anion Gap 10, Glomerular Fi ltration Rate 23.3L, Lactic Acid Level 1.6, Blood Urea Nitrogen 41H, Creatinine 2.13H, Sodium Level 139, Potassium Level 3.2L, Chloride Level 98, Carbon Dioxide Level 31, Calcium Level 8.9, Aspartate Amino Transf (AST/SGOT) 14, Alanine Aminotransferase (ALT/SGPT) 20, Total Creatine Kinase 33, Alkaline Phosphatase 89, Total Bilirubin 0.5, Total Protein 8.5H, Albumin 3.8, Creatine Kinase MB < 1.0, Creatine Kinase MB Relative Index 3.03, Troponin I 0.02, Albumin/Globulin Ratio 0.81L, Amylase Level 80, Lipase 552H CBC/BMP Laboratory Tests 04/15/18 16:50 Red Blood Count 4.44, Mean Corpuscular Volume 96.8 H, Mean Corpuscular Hemoglobin 32.2, Mean Corpuscular Hemoglobin Concent 33.3, Red Cell Distribution Width 12.6, Neutrophils (%) (Auto) 66.9 H, Lymphocytes (%) (Auto) 22.7 L, Monocytes (%) (Auto) 8.2 H, Eosinophils (%) (Auto) 1.4, Basophils (%) (Auto) 0.5, Neutrophils # (Auto) 5.8, Lymphocytes # (Auto) 2.0, Monocytes # (Auto) 0.7, Eosinophils # (Auto) 0.1, Basophils # (Auto) 0.0, Calcium Level 8.9, Aspartate Amino Transf (AST/SGOT) 14, Alanine Aminotransferase (ALT/SGPT) 20, Total Creatine Kinase 33, Alkaline Phosphatase 89, Total Bilirubin 0.5, Total Protein 8.5 H, Albumin 3.8 Microbiology Microbiology 04/15/18 Urine Culture, Received Pending Home Medications Scheduled (Simbrinza 1-0.2 %) 1 No No, 1 DROP OU BID (Digoxin) 125 Mcg Tab, 125 MCG PO 3XW MON,WED,FRI Apixaban Base (Eliquis) 2.5 Mg Tab, 2.5 MG PO BID Bisoprolol Fumarate (Zebeta) 10 Mg Tab, 10 MG PO BID Calcitriol (Rocaltrol) 0.25 Mcg Cap, 0.25 MCG PO 3XW MON,WED,FRI Escitalopram Oxalate (Lexapro) 10 Mg Tab, 10 MG PO DAILY Fluticasone/Vilanterol (Breo Ellipta 100-25 Mcg/INH) 1 Inh Inh, 1 PUFF INH BID Furosemide (Furosemide) 40 Mg Tab, 40 MG PO DAILY Lorazepam (Ativan) 0.5 Mg Tab, 0.5 MG PO QHS Multivitamins *[facility] STOCKED* (Thera M Plus *[facility] STOCKED*) 1 Tab Tab, 1 TAB PO DAILY Potassium Chloride (Potassium Chloride ER) 10 Meq Tab, 10 MEQ PO BID PT TAKES HERE AND THERE Propylthiouracil (Propylthiouracil) 50 Mg Tab, 50 MG PO TID Travoprost (Travatan Z) 50 Drop/2.5 Ml Soln, 1 DROP OU QHS Scheduled PRN (Systane Balance Restorati) 0.6 % Melisa, 1 DROP OU QID PRN for DRY EYES Acetaminophen (Acetaminophen Extra Stren) 500 Mg Tab, 1,000 MG PO Q6H PRN for PAIN Allergies Coded Allergies: Febuxostat (Unverified Allergy, Severe, HIVES, 04/15/18) Colchicine (Verified Allergy, Unknown, 04/15/18) Sulfa Drugs (Verified Allergy, Unknown, 06/16/16) Sulfa Drugs Cross Reactors (Verified Allergy, Unknown, 06/16/16) GME ATTESTATION GME ATTESTATION My faculty preceptor for this patient encounter was physically present during the encounter and was fully available. All aspects of the patient interview, examination, medical decision making process, and medical care plan development were reviewed and approved by the faculty preceptor. The faculty preceptor is aware and concurs with the plan as stated in the body of this note and will attest to such by his/her cosignature. BRIAN BEASLEY DO Apr 15, 2018 21:39 IZABELA MAHMOOD MD Apr 16, 2018 21:47
[2018-04-15 23:15] VITALS: BP 131/87
[2018-04-15] MEDS: BISOPROLOL FUMARATE 10 MG TAB PO SCH (23:32)
[2018-04-15] MEDS: APIXABAN 2.5 MG TAB (ELIQUIS) PO SCH (23:33)
[2018-04-15] MEDS: LORazepam 0.5 MG TAB PO SCH (23:35)
[2018-04-15] MEDS: POTASSIUM CHLORIDE 10 MEQ SR TABLET PO SCH (23:37)
[2018-04-16] MEDS ORDERED: ACETAMINOPHEN TAB 650MG DOSE (2X325MG) PO PRN (00:30)
[2018-04-16] MEDS: PROPYLTHIOURACIL 50 MG TAB PO SCH ×4 (00:33→20:12)
[2018-04-16] MEDS: LATANOPROST 0.005% OPHTH SOLN 2.5 ML OU SCH ×2 (00:33→20:13)
[2018-04-16 06:00] VITALS: BP 118/58
[2018-04-16] MEDS: NS 1,000 ML IV SCH ×3 (07:24→23:36)
[2018-04-16 08:00] LABS: HEMATOCRIT 37.6 % (36.0-47.0); HEMOGLOBIN 12.4 g/dl (12.0-15.5); MEAN CORPUSCULAR HEMOGLOBIN 32.5 pg (27.0-33.0); MEAN CORPUSCULAR VOLUME 98.4 fl (80.0-96.0); PLATELET COUNT, AUTOMATED 222 10^3/uL (150-450); RED BLOOD COUNT 3.82 10^6/uL (4.00-5.40); WHITE BLOOD COUNT 6.1 10^3/uL (4.0-10.0)
[2018-04-16 08:44] LABS: CALCIUM LEVEL 7.8 MG/DL (8.8-10.2); CREATININE FOR GFR 1.75 MG/DL (0.55-1.30); DIGOXIN LEVEL 0.7 NG/ML (0.5-2.0); GLOMERULAR FILTRATION RATE 29.3 (>32)
[2018-04-16] MEDS ORDERED: DIGOXIN 0.125 MG TAB PO SCH (09:00)
--- NOTE | 2018-04-16 09:12 | ECGEPIP ---
Stationary ECG Study [facility] - ED Test Date: 2018-04-15 Pat Name: YIMI RODAS Department: Room: - Gender: F Safety Manager: eekin : [id number] Requested By: BYRON Archer PA-C Order Number: [id number] Reading MD: Christopher Jiang Measurements Intervals [place] Rate: 77 P: [place]: 0 QRS: -3 QRSD: 93 T: 9 QT: 393 QTc: 445 Interpretive Statements ATRIAL FIBRILLATION ST DEVIATION AND MODERATE T-WAVE ABNORMALITY, CONSIDER LATERAL ISCHEMIA Rate decreased from tracing done 09-18-17 Movement Artifact Electronically Signed On 04-16-2018 9:12:05 EST by Christopher Jiang
[2018-04-16] MEDS: cefTRIAXone SOD 1 GM in D5W MINI-BAG PLUS 50 ML IV SCH (09:29)
[2018-04-16] MEDS: ESCITALOPRAM OXALATE 10 MG TAB (LEXAPRO) PO SCH (09:38)
[2018-04-16] MEDS: APIXABAN 2.5 MG TAB (ELIQUIS) PO SCH ×2 (09:38→20:12)
[2018-04-16] MEDS: POTASSIUM CHLORIDE 10 MEQ SR TABLET PO SCH ×2 (09:39→20:12)
[2018-04-16] MEDS: MULTIVITAMINS/MINERALS THERAP 1 TAB PO SCH (09:39)
[2018-04-16] MEDS: BISOPROLOL FUMARATE 10 MG TAB PO SCH ×2 (09:40→20:12)
--- NOTE | 2018-04-16 11:32 | IPNPDOC ---
Date Seen The patient was seen on 04/16/18. Progress Note SUBJECTIVE: anxious to go home. no recurrent diarrhea, denies n/v/fever/chills. on ceftriaxone for uti. urine cx pending. PHYSICAL EXAMINATION: VITAL SIGNS:PLS SEE BELOW GENERAL APPEARANCE: Patient is awake, alert, and oriented. She is laying comfortably on bed. She appears in no acute distress. She is well nourished HEENT: Atraumatic, normocephalic. Eyes are non-icteric. Mucous membranes are pink and moist. Trachea is midline CARDIOVASCULAR: Irregularly irregular rhythm. Normal rate. No clicks, rubs, or murmurs noted. No JVD. No carotid bruits LUNGS: Clear vesicular lung sound bilaterally with good respiratory effort. No wheezes, rhonci, or rales ABDOMEN: Soft, nondistended. Slight suprapubic tenderness to palpation. Positive bowel sounds through out. No hernia noted EXTREMITIES: No edema. 2+ posterior tibial pulses bilaterally. 2+ radial pulses bilaterally. Capillary refill <2 seconds NEUROLOGICAL: Normal speech. PSYCHIATRIC: Mood and affect appear appropriate LABORATORY DATA: See below. IMAGING CT of the abdomen pelvis without IV and oral contrast for abdominal pain: Comparison is the CT study of the abdomen pelvis without and with IV contrast dated 11/12/2016. The visualized lung larkin are unremarkable. The unenhanced hepatic parenchyma is homogeneous. There are surgical clips in the gallbladder fossa. The head, body and tail of the pancreas are unremarkable and unchanged. The spleen is normal size and unremarkable. The adrenals are unremarkable. The patients known multiple left renal masses are again identified, not significantly changed in size although better appreciated on the prior study with IV contrast. The multiple right renal cysts are not significantly changed. The abdominal aorta is unremarkable. There is no periaortic adenopathy or mass. There is no bowel distension or obstruction. There is sigmoid colon diverticulosis without diverticulitis. Pelvis: There is a pessary in the vaginal vault, unchanged. The bladder is unremarkable. There is a hysterectomy. There are no masses or cysts in the adnexa. There is internal fixation of the left hip. Impression: There is no ascites, adenopathy or mass. Except for the patient's known mu ltiple left renal masses are not significantly changed. The known of multiple right renal cysts are not significantly changed. No bowel obstruction or distension. Diverticulosis without diverticulitis. A pessary in the vaginal vault. Electronically Signed by Kamari Coughlin MD 04/15/2018 06:00 MICROBIOLOGY: Please see below. ASSESSMENT/PLAN: Patient is an 88 year old female who presented to the [facility] ER with complaint of abdominal pain since Saturday04/11/2018. Patient states that she developed an achy feeling in her stomach last Saturday. She admits to some nausea but denies any vomiting. She does note chills starting on Saturday but states they have since resolved. She denies any fevers. She does admit to several episodes of non-bloody diarrhea. She states that since Saturday she has had decreased PO intake due to her stomach aches. Patient states that her mblibkhp-wd-vts was recently ill with similar symptoms. Patient was brought to the Emergency room by her son. In the emergency room, patient was found to have an acute on chronic kidney injury. She received abdominal imaging which was unrevealing with exception to a left renal cyst/mass which has remained u nchanged from previous imaging. She was additionally found to have a urinary tract infection. Patient does admit to urinary frequency/urgency. She received 300mg PO Cefdinir in the ER. Hospitalist were consulted and patient was admitted to general medical floor Acute Gastroenteritis likely viral -Patient is presenting with abdominal pain, non-bloody diarrhea, and nausea for several days. She has been afebrile and denies any fevers. Her erfpdtry-fb-bup was recently ill with similar symptoms. -Plan for supportive care -GI panel currently pending -Patient to receive IV fluids -CHECK digoxin level Acute on Chronic Kidney Injury -Likely secondary to dehydration from poor oral intake and diarrhea. CBC shows elevated hemoglobin likely hemoconcentration from dehydration -IV fluid hydration -Avoid nephrotoxic medications -Will trend Creatinine UTI -Patient has complaint of urinary frequency and urgency with a positive UA. She is currently afebrile. CT abdomen revealed no signs of hydronephrosis -Patient received 300 mg cefdinir PO in the ER -Continue patient on Rocephin 1 gm for 3 days History of Atrial Fibrillation -Continue patients home medications. -Digoxin 125 mcg 3 times a week -Bisoprolol -Anticoagulation with Eliquis Depression -Continue Escitalopram Glaucoma -Continue Lantoprost Insomnia -Continue Ativan Hyperthyroidism -Continue PTU . DVT prophylaxis -Patient chronically anticoagulated on Eliquis VS, I&O, 24H, Fishbone Vital Signs/I&O Vital Signs Date Time Temp Pulse Resp B/P (MAP) Pulse Ox O2 Delivery O2 Flow Rate FiO2 04/16/18 06:00 98.2 100 18 118/58 (78) 93 04/15/18 22:58 Room Air I&O- Last 24 Hours up to 6 AM 04/16/18 06:00 Intake Total 850 ml Output Total 250 ml Balance 600 ml Laboratory Data 24H LABS Laboratory Tests 2 04/15/18 16:50: Immature Granulocyte % (Auto) 0.3, White Blood Count 8.7, Red Blood Count 4.44, Hemoglobin 14.3, Hematocrit 43.0, Mean Corpuscular Volume 96.8H, Mean Corpuscular Hemoglobin 32.2, Mean Corpuscular Hemoglobin Concent 33.3, Red Cell Distribution Width 12.6, Platelet Count 273, Neutrophils (%) (Auto) 66.9H, Lymphocytes (%) (Auto) 22.7L, Monocytes (%) (Auto) 8.2H, Eosinophils (%) (Auto) 1.4, Basophils (%) (Auto) 0.5, Neutrophils # (Auto) 5.8, Lymphocytes # (Auto) 2.0, Monocytes # (Auto) 0.7, Eosinophils # (Auto) 0.1, Basophils # (Auto) 0.0, Nucleated Red Blood Cells % (auto) 0.0, Urine Color YELLOW, Urine Appearance CLOUDYH, Urine pH 5.0, Urine Specific [place] 1.010, Urine Protein NEGATIVE, Urine Glucose (UA) NEGATIVE, Urine Ketones NEGATIVE, Urine Blood 1+H, Urine Nitrite NEGATIVE, Urine Bilirubin NEGATIVE, Urine Urobilinogen 0.2, Urine Leukocyte Esterase 3+H, Urine WBC (Auto) 173H, Urine RBC (Auto) 39H, Urine Hyaline Casts (Auto) 0, Urine Bacteria (Auto) 3+H, Urine Squamous Epithelial Cells 7, Urine Transitional Epithelial Cells 1, Urine Mucus (Auto) SMALL, Urine Yeast-Like Cells (Auto) SMALLH, Urine Sperm (Auto) , Anion Gap 10, Glomerular Filtration Rate 23.3L, Lactic Acid Level 1.6, Blood Urea Nitrogen 41H, Creat inine 2.13H, Sodium Level 139, Potassium Level 3.2L, Chloride Level 98, Carbon Dioxide Level 31, Calcium Level 8.9, Aspartate Amino Transf (AST/SGOT) 14, Alanine Aminotransferase (ALT/SGPT) 20, Total Creatine Kinase 33, Alkaline Phosphatase 89, Total Bilirubin 0.5, Total Protein 8.5H, Albumin 3.8, Creatine Kinase MB < 1.0, Creatine Kinase MB Relative Index 3.03, Troponin I 0.02, Albumin/Globulin Ratio 0.81L, Amylase Level 80, Lipase 552H CBC/BMP Laboratory Tests 04/15/18 16:50 Red Blood Count 4.44, Mean Corpuscular Volume 96.8 H, Mean Corpuscular Hemoglobin 32.2, Mean Corpuscular Hemoglobin Concent 33.3, Red Cell Distribution Width 12.6, Neutrophils (%) (Auto) 66.9 H, Lymphocytes (%) (Auto) 22.7 L, Monocytes (%) (Auto) 8.2 H, Eosinophils (%) (Auto) 1.4, Basophils (%) (Auto) 0.5, Neutrophils # (Auto) 5.8, Lymphocytes # (Auto) 2.0, Monocytes # (Auto) 0.7, Eosinophils # (Auto) 0.1, Basophils # (Auto) 0.0, Calcium Level 8.9, Aspartate Amino Transf (AST/SGOT) 14, Alanine Aminotransferase (ALT/SGPT) 20, Total Creatine Kinase 33, Alkaline Phosphatase 89, Total Bilirubin 0.5, Total Protein 8.5 H, Albumin 3.8 Microbiology Microbiology 04/15/18 Urine Culture, Received Pending WALDO JADE MD Apr 16, 2018 07:15
[2018-04-16 14:00] VITALS: BP 104/56
[2018-04-16] MEDS: LORazepam 0.5 MG TAB PO SCH (20:12)
[2018-04-16 22:00] VITALS: BP 144/86
[2018-04-17 06:00] VITALS: BP 157/72
[2018-04-17 06:49] LABS: HEMATOCRIT 34.7 % (36.0-47.0); HEMOGLOBIN 11.4 g/dl (12.0-15.5); MEAN CORPUSCULAR HGB CONC 32.9 g/dl (32.0-36.5); MEAN CORPUSCULAR VOLUME 97.5 fl (80.0-96.0); PLATELET COUNT, AUTOMATED 188 10^3/uL (150-450); RED BLOOD COUNT 3.56 10^6/uL (4.00-5.40); WHITE BLOOD COUNT 5.7 10^3/uL (4.0-10.0)
[2018-04-17 07:08] LABS: CALCIUM LEVEL 7.3 MG/DL (8.8-10.2); CREATININE FOR GFR 1.3 MG/DL (0.55-1.30); GLOMERULAR FILTRATION RATE 41.2 (>32); POTASSIUM SERUM 3.9 MEQ/L (3.5-5.1)
[2018-04-17 08:09] VITALS: BP 158/76
[2018-04-17] MEDS: APIXABAN 2.5 MG TAB (ELIQUIS) PO SCH (08:38)
[2018-04-17] MEDS: ESCITALOPRAM OXALATE 10 MG TAB (LEXAPRO) PO SCH (08:38)
[2018-04-17 08:39] VITALS: BP 158/76
[2018-04-17] MEDS: POTASSIUM CHLORIDE 10 MEQ SR TABLET PO SCH (08:39)
[2018-04-17] MEDS: cefTRIAXone SOD 1 GM in D5W MINI-BAG PLUS 50 ML IV SCH (08:39)
[2018-04-17] MEDS: MULTIVITAMINS/MINERALS THERAP 1 TAB PO SCH (08:39)
[2018-04-17] MEDS: PROPYLTHIOURACIL 50 MG TAB PO SCH (08:39)
[2018-04-17] MEDS: BISOPROLOL FUMARATE 10 MG TAB PO SCH (08:39)
[2018-04-17] MEDS: NS 1,000 ML IV SCH (08:45)
[2018-04-17] MEDS ORDERED: LEVA250T13 PO ×2 (09:51→11:05)
--- NOTE | 2018-04-17 12:27 | DS.PDOC ---
Discharge Summary General Date of Admission Apr 15, 2018 at 20:21 Date of Discharge 04/17/18 Discharge Summary DISCHARGE DIAGNOSES: Acute Gastroenteritis likely viral Acute on Chronic Kidney Injury UTI History of Atrial Fibrillation Depression Glaucoma Insomnia Hyperthyroidism DISCHARGE MEDICATIONS: PLS SEE BELOW DISCHARGE INSTRUCTIONS: LASIX WAS DISCONTINUED DUE TO ADMISSION CREATININE OF 2.5. PT TO WEIGH HERSELF DAILY AND CALL DR. CHILD OR PCP IF >1-2LB WEIGHT GAIN TO RESUME LASIX. HISTORY OF PRESENTING ILLNESS: Patient is an 88 year old female who presented to the [facility] ER with compl aint of abdominal pain since Saturday04/11/2018. Patient states that she developed an achy feeling in her stomach last Saturday. She admits to some nausea but denies any vomiting. She does note chills starting on Saturday but states they have since resolved. She denies any fevers. She does admit to several episodes of non- bloody diarrhea. She states that since Saturday she has had decreased PO intake due to her stomach aches. Patient states that her aujamilu-dx-zam was recently ill with similar symptoms. Patient was brought to the Emergency room by her son. In the emergency room, patient was found to have an acute on chronic kidney injury. She received abdominal imaging which was unrevealing with exception to a left renal cyst/mass which has remained unchanged from previous imaging. She was additionally found to have a urinary tract infection. Patient does admit to urinary frequency/urgency. She received 300mg PO Cefdinir in the ER. Hospitalist were consulted and patient was admitted to general medical floor. Acute Gastroenteritis likely viral -Patient is presenting with abdominal pain, non-bloody diarrhea, and nausea for several days. She has been afebrile and denies any fevers. Her bvebvwid-vk-svu was recently ill with similar symptoms. -Plan for supportive care -NO RECURRENT DIARRHEA AFTER HOSPITAL ADMISSION -Normal digoxin level, responded to ivfluids with normalization of creatinine. Acute on Chronic Kidney Injury -Likely secondary to dehydration from poor oral intake and diarrhea. CBC shows elevated hemoglobin likely hemoconcentration from dehydration -s/p IV fluid hydration -Avoided nephrotoxic medications -admission creatinine was 2.5. diuretics were held, and discharge creatinine was normal. diuretic to be resumed by pcp or cardiology as outpt. UTI -Patient has complaint of urinary frequency and urgency with a positive UA. She is currently afebrile. CT abdomen revealed no signs of hydronephrosis -Patient received 300 mg cefdinir PO in the ER -Continue patient on Rocephin 1 gm for 3 days History of Atrial Fibrillation -Continue patients home medications. -Digoxin 125 mcg 3 times a week -Bisoprolol -Anticoagulation with Eliquis Depression -Continue Escitalopram Glaucoma -Continue Lantoprost Insomnia -Continue Ativan Hyperthyroidism -Continue PTU . DVT prophylaxis -Patient chronically anticoagulated on Eliquis DISCHARGE PHYSICAL EXAMINATION: VITAL SIGNS:PLS SEE BELOW GENERAL APPEARANCE: Patient is awake, alert, and oriented. SITTING on the side of the bed HEENT: Atraumatic, normocephalic. Eyes are non-icteric. Mucous membranes are pink and moist. Trachea is midline CARDIOVASCULAR: Irregularly irregular rhythm. Normal rate. No clicks, rubs, or murmurs noted. No JVD. No carotid bruits LUNGS: Clear vesicular lung sound bilaterally with good respiratory effort. No wheezes, rhonci, or rales ABDOMEN: Soft, nondistended. nontender no cva tenderness Positive bowel sounds through out. No hernia noted EXTREMITIES: No edema. 2+ posterior tibial pulses bilaterally. 2+ radial pulses bilaterally. Capillary refill <2 seconds NEUROLOGICAL: Normal speech. PSYCHIATRIC: Mood and affect appear appropriate LABORATORY DATA: See below. IMAGING CT of the abdomen pelvis without IV and oral contrast for abdominal pain: Comparison is the CT study of the abdomen pelvis without and with IV contrast dated 11/12/2016. The visualized lung larkin are unremarkable. The unenhanced hepatic parenchyma is homogeneous. There are surgical clips in the gallbladder fossa. The head, body and tail of the pancreas are unremarkable and unchanged. The spleen is normal size and unremarkable. The adrenals are unremarkable. The patients known multiple left renal masses are again identified, not significantly changed in size although better appreciated on the prior study with IV contrast. The multiple right renal cysts are not significantly changed. The abdominal aorta is unremarkable. There is no periaortic adenopathy or mass. There is no bowel distension or obstruction. There is sigmoid colon diverticulosis without diverticulitis. Pelvis: There is a pessary in the vaginal vault, unchanged. The bladder is unremarkable. There is a hysterectomy. There are no masses or cysts in the adnexa. There is internal fixation of the left hip. Impression: There is no ascites, adenopathy or mass. Except for the patient's known multiple left renal masses are not significantly changed. The known of multiple right renal cysts are not significantly changed. No bowel obstruction or distension. Diverticulosis without diverticulitis. A pessary in the vaginal vault. Electronically Signed by Kamari Coughlin MD 04/15/2018 06:00 MICROBIOLOGY: Please see below. TIME SPENT ON DISCHARGE 30MIN. Vital Signs/I&Os Vital Signs Date Time Temp Pulse Resp B/P (MAP) Pulse Ox O2 Delivery O2 Flow Rate FiO2 04/17/18 08:39 75 158/76 04/17/18 08:09 97.9 16 94 04/15/18 22:58 Room Air I&O- Last 24 Hours up to 6 AM 04/17/18 06:00 Intake Total 2563 ml Output Total 1100 ml Balance 1463 ml Laboratory Data Labs 24H Laboratory Tests 2 04/17/18 06:35: Nucleated Red Blood Cells % (auto) 0.0, Anion Gap 6L, Glomerular Filtration Rate 41.2, Blood Urea Nitrogen 19H, Creatinine 1.30, Sodium Level 146H, Potassium Level 3.9, Chloride Level 116H, Carbon Dioxide Level 24, Calcium Level 7.3L CBC/BMP Laboratory Tests 04/17/18 06:35 Red Blood Count 3.56 L, Mean Corpuscular Volume 97.5 H, Mean Corpuscular Hemoglobin 32.0, Mean Corpuscular Hemoglobin Concent 32.9, Red Cell Distribution Width 12.7, Calcium Level 7.3 L Microbiology Microbiology 04/16/18 Gastrointestinal Tract Panel (PCR) - Final, Complete 04/15/18 Urine Culture, Received Pending Discharge Medications Scheduled (Simbrinza 1-0.2 %) 1 No No, 1 DROP OU BID, (Reported) (Digoxin) 125 Mcg Tab, 125 MCG PO 3XW, (Reported) MON,WED,FRI Apixaban Base (Eliquis) 2.5 Mg Tab, 2.5 MG PO BID, (Reported) Bisoprolol Fumarate (Zebeta) 10 Mg Tab, 10 MG PO BID Calcitriol (Rocaltrol) 0.25 Mcg Cap, 0.25 MCG PO 3XW, (Reported) MON,WED,FRI Escitalopram Oxalate (Lexapro) 10 Mg Tab, 10 MG PO DAILY, (Reported) Fluticasone/Vilanterol (Breo Ellipta 100-25 Mcg/INH) 1 Inh Inh, 1 PUFF INH BID, (Reported) Levofloxacin Hemihydrate (Levaquin) 250 Mg Tab, 250 MG PO DAILY Lorazepam (Ativan) 0.5 Mg Tab, 0.5 MG PO QHS, (Reported) Multivitamins *[facility] STOCKED* (Thera M Plus *[facility] STOCKED*) 1 Tab Tab, 1 TAB PO DAILY, (Reported) Potassium Chloride (Potassium Chloride ER) 10 Meq Tab, 10 MEQ PO BID, (Reported) PT TAKES HERE AND THERE Propylthiouracil (Propylthiouracil) 50 Mg Tab, 50 MG PO TID, (Reported) Travoprost (Travatan Z) 50 Drop/2.5 Ml Soln, 1 DROP OU QHS, (Reported) Scheduled PRN (Systane Balance Restorati) 0.6 % Melisa, 1 DROP OU QID PRN for DRY EYES, (Reported) Acetaminophen (Acetaminophen Extra Stren) 500 Mg Tab, 1,000 MG PO Q6H PRN for PAIN, (Reported) Allergies Coded Allergies: Febuxostat (Unverified Allergy, Severe, HIVES, 04/15/18) Colchicine (Verified Allergy, Unknown, 04/15/18) Sulfa Drugs (Verified Allergy, Unknown, 06/16/16) Sulfa Drugs Cross Reactors (Verified Allergy, Unknown, 06/16/16) WALDO JADE MD Apr 17, 2018 12:27
== END 2018-04-17 11:48 | disposition home or self-care (01) | DRG 392 ==
LOC: M ED 16:00 → M ED INP 20:21 → M MSPAV 23:15
PROVIDERS: ADMIT Hospitalist; ATTEND General Practice
DX: A08.4 Viral intestinal infection, unspecified (principal); N39.0 Urinary tract infection, site not specified; N17.9 Acute kidney failure, unspecified; I48.91 Unspecified atrial fibrillation; N18.3 Chronic kidney disease, stage 3 (moderate); F41.9 Anxiety disorder, unspecified; F32.9 Major depressive disorder, single episode, unspecified; H40.9 Unspecified glaucoma; E05.90 Thyrotoxicosis, unspecified without thyrotoxic crisis or storm; Z87.891 Personal history of nicotine dependence; Z96.649 Presence of unspecified artificial hip joint; Z79.01 Long term (current) use of anticoagulants; Z79.899 Other long term (current) drug therapy; Z88.2 Allergy status to sulfonamides; Z88.8 Allergy status to other drugs, medicaments and biological substances

== ENCOUNTER → 2018-04-23 | Outpatient (REF) | payer MEDICARE ==
[~2018-04-23] MED LIST changes: +LEVA250T13 PO; +POTA1TAB23 PO; +ROCA0.25 PO
[2018-04-23 18:36] LABS: DIGOXIN LEVEL 0.7 NG/ML (0.5-2.0); URIC ACID 9.1 MG/DL (2.6-6.0)
== END ==
LOC: M LAB REF 17:12
PROVIDERS: ATTEND Family Medicine
DX: M10.9 Gout, unspecified (principal); I48.91 Unspecified atrial fibrillation; Z79.01 Long term (current) use of anticoagulants

== ENCOUNTER → 2018-05-15 | Outpatient (CLI) | payer MEDICARE ==
[~2018-05-15] MED LIST changes: -ASPI1TAB PO; -ASPI81CH3 PO; +ASPI81CH48 PO; +ASPI81TA26 PO; -BISO10TA PO; +BISO10TA13 PO; +VENTAER INH
--- NOTE | 2018-05-15 16:06 | REP ---
Urinary tract sonography: History: Solid left renal mass. Complex right renal cyst. Comparison CT study April 15, 2018. Also reviewed is a CT study from November 12, 2016. Comparison renal sonography August 15, 2017. Sonographic findings: Scanning at the level of the urinary bladder shows no abnormality. Renal cortical echogenicity pattern is normal. There is no evidence of hydronephrosis on either side. Left renal dimensions are 9.0 x 3.9 x 4.8 cm. The right kidney measures 8.0 x 4.2 x 4.2 cm. The right kidney is felt to be somewhat atrophic. There are multiple cysts in the right kidney lower pole. These measure 2.7, 2.2, and 3.7 cm in greatest diameter respectively. In the left kidney there is an upper pole cyst measuring 1.2 cm in greatest diameter and a lower pole cyst measuring 2.0 cm in greatest diameter. In addition, there is again evidence of a solid mass in the left mid kidney. Its sonographic dimensions today are 2.6 x 2.6 x 2.4 cm. This is previously reported as up to 3.1 cm in greatest diameter. It is felt to be unchanged. No new mass lesion is seen. Impression: Stable solid mid pole mass left kidney. Bilateral renal cysts. Electronically Signed by See Venegas MD 05/15/2018 04:20 P
== END ==
LOC: M RAD 13:52
PROVIDERS: ATTEND Urology
DX: N28.1 Cyst of kidney, acquired (principal)

== ENCOUNTER 2018-05-21 19:39 | Emergency (ER) | payer MEDICARE ==
[~2018-05-21] VITALS: Ht 154.9 cm; Wt 54.1 kg
[~2018-05-21 19:39] MED LIST changes: -VENTAER INH
[2018-05-21] MEDS ORDERED: PROPARACAINE 0.5% OPHTH SOL 15ML OU ONE (20:15)
[2018-05-21] MEDS ORDERED: VENTAER INH (20:21)
--- NOTE | 2018-05-21 21:02 | REPVR ---
EXAM: CT Head Without Contrast EXAM DATE/TIME: 05/21/2018 8:28 PM CLINICAL HISTORY: 88 years old, female; Pain; Other: Eye; Additional info: "word searching" earlier this marcus logan eye pain TECHNIQUE: Imaging protocol: Axial computed tomography images of the head/brain without contrast. Radiation optimization: All CT scans at this facility use at least one of these dose optimization techniques: automated exposure control; mA and/or kV adjustment per patient size (includes targeted exams where dose is matched to clinical indication); or iterative reconstruction. COMPARISON: CT Head without contrast 06/16/2016 6:16 PM FINDINGS: Brain: There is a 2 CM oval mass abutting the inferior margin of the frontal lobe. This mass has peripheral calcification and may represent a partially calcified meningioma. This can be seen on the CT examination of the 2017 and probably unchanged. I would recommend correlation with an MRI examination with contrast for clarification. The cerebral sulci appear symmetric. There is patchy low density in the periventricular white matter on the right probably chronic ischemic change and similar to the previous exam. There is no evidence of mass effect. Ventricles: Normal appearing ventricles. Bones/joints: Unremarkable. No acute fracture. Sinuses: Clear paranasal sinuses. Mastoid air cells: Clear mastoid air cells. Soft tissues: Unremarkable. Vasculature: There is calcification of the carotid siphon bilaterally. IMPRESSION: 2 CM oval partially calcified mass impressing on the lower aspect of the frontal lobe. 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 I suspect this is unchanged since 2017 exam. It would however be prudent to have an MRI scan with contrast for further evaluation of this. Electronically signed by: Tom Ruth On 05/21/2018 21:01:59 PM
[2018-05-21] MEDS ORDERED: TIMOLOL XE GFS 0.5% OPHTH 5 ML OS ONE (21:15)
[2018-05-21 22:03] VITALS: BP 180/91
--- NOTE | 2018-05-23 11:17 | ED PDOC ---
Post-Departure Follow-Up dr stephen and dr rios faxed formla report of ct head for fu retag Georgiana Garcia MD May 23, 2018 11:17
== END 2018-05-21 22:12 | disposition home or self-care (01) ==
LOC: M ED 19:39
DX: H40.89 Other specified glaucoma (principal); H40.052 Ocular hypertension, left eye; N18.4 Chronic kidney disease, stage 4 (severe); I12.9 Hypertensive chronic kidney disease with stage 1 through stage 4 chronic kidney disease, or unspecified chronic kidney disease; M1A.30X0 Chronic gout due to renal impairment, unspecified site, without tophus (tophi); F33.9 Major depressive disorder, recurrent, unspecified; F41.9 Anxiety disorder, unspecified; K58.9 Irritable bowel syndrome, unspecified; H35.30 Unspecified macular degeneration; Z79.899 Other long term (current) drug therapy; Z79.01 Long term (current) use of anticoagulants; Z88.1 Allergy status to other antibiotic agents; Z88.2 Allergy status to sulfonamides; Z88.8 Allergy status to other drugs, medicaments and biological substances

== ENCOUNTER → 2018-05-21 | Outpatient (REF) | payer MEDICARE | LOC: M LAB REF 16:58 | PROVIDERS: ATTEND Family Medicine | DX: N18.4 Chronic kidney disease, stage 4 (severe) (principal); M1A.30X0 Chronic gout due to renal impairment, unspecified site, without tophus (tophi); I12.9 Hypertensive chronic kidney disease with stage 1 through stage 4 chronic kidney disease, or unspecified chronic kidney disease ==

== ENCOUNTER → 2018-06-04 | Outpatient (REF) | payer MEDICARE ==
[~2018-06-04] MED LIST changes: +VENTAER INH
== END ==
LOC: M LAB REF 16:59
PROVIDERS: ATTEND Family Medicine
DX: N18.4 Chronic kidney disease, stage 4 (severe) (principal); M1A.30X0 Chronic gout due to renal impairment, unspecified site, without tophus (tophi); I12.9 Hypertensive chronic kidney disease with stage 1 through stage 4 chronic kidney disease, or unspecified chronic kidney disease

== ENCOUNTER 2018-06-06 11:47 | Outpatient (CLI) | payer MEDICARE ==
[~2018-06-06] VITALS: Ht 154.9 cm; Wt 64.0 kg
[2018-06-06] MEDS ORDERED: ACETAMINOPHEN 500 MG TAB PO ONE (12:30)
[2018-06-06] MEDS ORDERED: HYDROCORTISONE 100 MG/2 ML VIAL (J1720) IV ONE (12:30)
[2018-06-06] MEDS ORDERED: FEXOFENADINE 60 MG TAB PO ONE (12:30)
[2018-06-06 12:36] VITALS: BP 165/77
[2018-06-06] MEDS ORDERED: NS IV ONE (13:00)
[2018-06-06] MEDS ORDERED: [UNRECOGNIZED DRUG - OTHER] IV ONE (13:00)
[2018-06-06 13:07] VITALS: BP 175/80
[2018-06-06 15:26] VITALS: BP 164/72
== END 2018-06-06 15:30 | disposition home or self-care (01) ==
LOC: M INFU 11:47
PROVIDERS: ATTEND Internal Medicine Nephrology
DX: M1A.30X0 Chronic gout due to renal impairment, unspecified site, without tophus (tophi) (principal); N18.4 Chronic kidney disease, stage 4 (severe); I12.9 Hypertensive chronic kidney disease with stage 1 through stage 4 chronic kidney disease, or unspecified chronic kidney disease; Z88.8 Allergy status to other drugs, medicaments and biological substances; Z88.1 Allergy status to other antibiotic agents; Z88.2 Allergy status to sulfonamides
CPT/HCPCS: 96365; 96366; 96375; J1720; J2507

== ENCOUNTER → 2018-06-18 | Outpatient (REF) | payer MEDICARE | LOC: M LAB REF 16:25 | PROVIDERS: ATTEND Family Medicine | DX: N18.4 Chronic kidney disease, stage 4 (severe) (principal); M1A.30X0 Chronic gout due to renal impairment, unspecified site, without tophus (tophi); I12.9 Hypertensive chronic kidney disease with stage 1 through stage 4 chronic kidney disease, or unspecified chronic kidney disease ==

== ENCOUNTER → 2018-06-25 | Outpatient (REF) | payer MEDICARE | LOC: M LAB REF 17:51 | PROVIDERS: ATTEND Family Medicine | DX: N18.4 Chronic kidney disease, stage 4 (severe) (principal); M1A.30X0 Chronic gout due to renal impairment, unspecified site, without tophus (tophi) ==

== ENCOUNTER → 2018-06-27 | Outpatient (CLI) | payer MEDICARE ==
[~2018-06-27] VITALS: Ht 154.9 cm; Wt 64.0 kg
[2018-06-27 12:15] VITALS: BP 139/82
== END ==
LOC: M INFU 11:45
PROVIDERS: ATTEND Internal Medicine Nephrology
DX: M1A.9XX1 Chronic gout, unspecified, with tophus (tophi) (principal); Z53.8 Procedure and treatment not carried out for other reasons

== ENCOUNTER → 2018-10-06 | Outpatient (REF) | payer MEDICARE ==
[~2018-10-06] MED LIST changes: -FEBU40TA PO; +FEBU40TA4 PO
[2018-10-06 13:32] LABS: DIGOXIN LEVEL 0.5 NG/ML (0.5-2.0); URIC ACID 8.3 MG/DL (2.6-6.0)
== END ==
LOC: M LAB REF 12:57
PROVIDERS: ATTEND Family Medicine
DX: M1A.30X0 Chronic gout due to renal impairment, unspecified site, without tophus (tophi) (principal); I48.91 Unspecified atrial fibrillation

== ENCOUNTER 2018-11-02 06:11 | Emergency (ER) | payer MEDICARE ==
[~2018-11-02] VITALS: Ht 154.9 cm; Wt 62.3 kg
[~2018-11-02 06:11] MED LIST changes: -DIGO0.12 PO; +DIGO0.123 PO; -LORA0.5T11 PO; +LORA0.5T5 PO; +NIFE1TAB51 PO; -NIFE60TA6 PO
[2018-11-02] MEDS ORDERED: NS 1,000 ML IV SCH (07:36)
[2018-11-02] MEDS ORDERED: ACETAMINOPHEN 325 MG TAB PO ONE (08:00)
--- NOTE | 2018-11-02 08:29 | REPVR ---
PROCEDURE INFORMATION: Exam: CT Abdomen and Pelvis Without Contrast Exam date and time: 11/02/2018 7:56 AM Clinical history: 88 years old, female; Abdominal pain; Generalized; Additional Info: abd pain. Known renal mass in the midpole of the left kidney. TECHNIQUE: Imaging protocol: Computed tomography of the abdomen and pelvis without contrast. Radiation optimization: All CT scans at this facility use at least one of these dose optimization techniques: automated exposure control; mA and/or kV adjustment per patient size (includes targeted exams where dose is matched to clinical indication); or iterative reconstruction. COMPARISON: CT ABD PELVIS W/O FOL BY WIT 11/12/2016 2:12:[address] ABD PELVIS W/O CONTRAST 04/15/2018 5:28 PM FINDINGS: Liver: Normal. No mass. Gallbladder and bile ducts: Status post cholecystectomy. CBD measures 10 mm in diameter. Pancreas: Normal. No ductal dilation. Spleen: Normal. No splenomegaly. Adrenals: Normal. No mass. Kidneys and ureters: No hydronephrosis bilaterally. Renal lesions are not well characterized on this study. Hypodense lesion in the upper pole midpole of the right kidney Isodense lesions lower pole right kidney measuring 2.4 cm. Hyperdense cysts in the upper pole of the left kidney measuring 10 mm. Circumscribed hypodense lesion in the midpole right kidney measuring 3.7 cm. Other smaller hypodense lesions in the kidneys bilaterally. Stomach and bowel: Pericolonic haziness associated with the sigmoid colon consistent with sigmoid diverticulitis. Colonic diverticulosis. No abnormal bowel dilatation. No abnormal bowel wall thickening. Appendix: No evidence of appendicitis. Intraperitoneal space: No free air. No significant fluid collection. Vasculature: Unremarkable. No abdominal aortic aneurysm. Lymph nodes: Unremarkable. No enlarged lymph nodes. Bladder: Unremarkable as visualized. Reproductive: Pessary in the vagina. Bones/joints: 3 parallel fixation screws in the proximal left femur. Mild collapse of the left femoral head. Mild degenerative changes of the hips. No acute fracture otherwise. Soft tissues: Unremarkable. IMPRESSION: 1. Findings consistent with sigmoid diverticulitis. 2. No bowel perforation. 3. Isodense lesion in the lower pole of the right kidney and midpole of the left kidney consistent with known neoplasm. Grossly unchanged in size from prior. Lesion is not fully characterized on this study. Recommend followup as clinically warranted. 4. Other smaller isodense lesions in the left kidney maybe present. 5. Bilateral hypodense renal lesions. Consistent with renal cysts. 6. Mild collapse of the left femoral head. Unchanged from prior. 7. Left femoral neck fixation. 8. Additional findings as described. COMMENT: Consistent with the [employer]'s Incidental Findings Committee Report (J Am Caesar Radiol 2010): Unless the patient's specific circumstances suggest otherwise, any liver lesion 0.5 cm or less, any cystic kidney lesion less than 1.0 cm, and/or any adrenal lesion 1.0 cm or less not otherwise characterized in this report as possessing suspicious or indeterminate imaging features is/are highly likely to be benign and do not require follow-up imaging or biopsy. Electronically signed by: Newton Matos On 11/02/2018 08:29:21 AM
[2018-11-02 08:45] VITALS: BP 130/67
[2018-11-02 08:50] LABS: BASO % 0.2 % (0.0-1.0); EOS % 0.3 % (0.0-3.0); HEMATOCRIT 39.7 % (36.0-47.0); HEMOGLOBIN 13.6 g/dl (12.0-15.5); LYMPH # 1.4 10^3/uL (1.5-5.0); LYMPH % 8.9 % (24.0-44.0); MEAN CORPUSCULAR HEMOGLOBIN 32.3 pg (27.0-33.0); MEAN CORPUSCULAR HGB CONC 34.3 g/dl (32.0-36.5); MEAN CORPUSCULAR VOLUME 94.3 fl (80.0-96.0); MONO # 1.3 10^3/uL (0.0-0.8); NEUTROPHILS # 13.1 10^3/uL (1.5-8.5); NEUTROPHILS % 82.2 % (36.0-66.0); PLATELET COUNT, AUTOMATED 212 10^3/uL (150-450); RED BLOOD COUNT 4.21 10^6/uL (4.00-5.40); WHITE BLOOD COUNT 15.9 10^3/uL (4.0-10.0)
[2018-11-02] MEDS ORDERED: COLC1TAB13 (09:14)
[2018-11-02] MEDS ORDERED: PREDOPD (09:14)
[2018-11-02 09:15] LABS: ALBUMIN 3.6 GM/DL (3.2-5.2); BILIRUBIN,DIRECT 0.2 MG/DL (0.0-0.2); BILIRUBIN,TOTAL 1.1 MG/DL (0.2-1.0); CALCIUM LEVEL 8.8 MG/DL (8.8-10.2); CREATININE FOR GFR 1.28 MG/DL (0.55-1.30); POTASSIUM SERUM 3.7 MEQ/L (3.5-5.1); TOTAL PROTEIN 7.9 GM/DL (6.4-8.2)
[2018-11-02] MEDS ORDERED: AUGM500T34 PO (09:23)
[2018-11-02] MEDS ORDERED: AUGMENTIN 500 MG TAB PO ONE (09:30)
--- NOTE | 2018-11-03 19:56 | ED PDOC ---
Post-Departure Follow-Up dr rios faxed formal report of ct abd/p for fu Georgiana Guerra MD Nov 03, 2018 19:56
[2018-11-04] MEDS ORDERED: KEFL500C17 PO (14:21)
== END 2018-11-02 09:56 | disposition home or self-care (01) ==
LOC: M ED 06:11
DX: K57.92 Diverticulitis of intestine, part unspecified, without perforation or abscess without bleeding (principal); N18.3 Chronic kidney disease, stage 3 (moderate); E07.9 Disorder of thyroid, unspecified; I48.91 Unspecified atrial fibrillation; Z79.899 Other long term (current) drug therapy; Z79.01 Long term (current) use of anticoagulants; Z88.1 Allergy status to other antibiotic agents; Z88.2 Allergy status to sulfonamides; Z88.8 Allergy status to other drugs, medicaments and biological substances; Z87.891 Personal history of nicotine dependence

== ENCOUNTER 2018-11-05 16:37 | Emergency (ER) | payer MEDICARE ==
[~2018-11-05] VITALS: Ht 154.9 cm; Wt 62.3 kg
[~2018-11-05 16:37] MED LIST changes: +AUGM500T34 PO; +COLC1TAB13; +KEFL500C17 PO; +PREDOPD
[2018-11-05 17:41] LABS: BASO % 0.3 % (0.0-1.0); EOS # 0.1 10^3/uL (0.0-0.5); EOS % 0.7 % (0.0-3.0); HEMATOCRIT 38.3 % (36.0-47.0); HEMOGLOBIN 13.2 g/dl (12.0-15.5); LYMPH # 1.4 10^3/uL (1.5-5.0); LYMPH % 11.4 % (24.0-44.0); MEAN CORPUSCULAR HGB CONC 34.5 g/dl (32.0-36.5); MEAN CORPUSCULAR VOLUME 95.8 fl (80.0-96.0); MONO # 0.9 10^3/uL (0.0-0.8); MONO % 7.6 % (0.0-5.0); NEUTROPHILS # 9.7 10^3/uL (1.5-8.5); NEUTROPHILS % 79.7 % (36.0-66.0); PLATELET COUNT, AUTOMATED 211 10^3/uL (150-450); WHITE BLOOD COUNT 12.1 10^3/uL (4.0-10.0)
[2018-11-05] MEDS ORDERED: FURO40TA2 (18:03)
[2018-11-05] MEDS ORDERED: REFRSOL OU (18:03)
[2018-11-05 19:11] VITALS: BP 167/72
== END 2018-11-05 19:14 | disposition home or self-care (01) ==
LOC: M ED 16:37
DX: R52 Pain, unspecified (principal); K57.32 Diverticulitis of large intestine without perforation or abscess without bleeding; N39.0 Urinary tract infection, site not specified; I10 Essential (primary) hypertension; K21.9 Gastro-esophageal reflux disease without esophagitis; J45.909 Unspecified asthma, uncomplicated; N18.3 Chronic kidney disease, stage 3 (moderate); Z87.440 Personal history of urinary (tract) infections; Z79.01 Long term (current) use of anticoagulants; Z79.899 Other long term (current) drug therapy; Z88.2 Allergy status to sulfonamides; Z88.1 Allergy status to other antibiotic agents; Z88.8 Allergy status to other drugs, medicaments and biological substances

== ENCOUNTER → 2019-01-28 | Outpatient (REF) | payer MEDICARE ==
[~2019-01-28] MED LIST changes: +FURO40TA2; +LORA0.5T11 PO; -LORA0.5T5 PO; -NIFE1TAB51 PO; +NIFE60TA6 PO; +REFRSOL OU
== END ==
LOC: M LAB REF 11:52
PROVIDERS: ATTEND Family Medicine
DX: N18.4 Chronic kidney disease, stage 4 (severe) (principal); I12.9 Hypertensive chronic kidney disease with stage 1 through stage 4 chronic kidney disease, or unspecified chronic kidney disease

== ENCOUNTER 2019-02-13 08:16 | Emergency (ER) | payer MEDICARE ==
[~2019-02-13] VITALS: Ht 154.9 cm; Wt 57.4 kg
[2019-02-13] MEDS ORDERED: MAGN400C2 PO (08:25)
[2019-02-13] MEDS ORDERED: ACETAMINOPHEN 500 MG TAB PO ONE (09:30)
[2019-02-13] MEDS ORDERED: NS 500 ML IV ONE (09:30)
[2019-02-13 09:39] LABS: APPEARANCE, URINE CLOUDY (CLEAR); BACTERIA, URINE AUTO NEGATIVE (NEGATIVE); BILIRUBIN, URINE AUTO NEGATIVE (NEGATIVE); BLOOD, URINE BLOOD 1+ (NEGATIVE); COLOR, URINE YELLOW (YELLOW); GLUCOSE, URINE (UA) AUTO NEGATIVE (NEGATIVE); KETONE, URINE AUTO NEGATIVE (NEGATIVE); LEUKOCYTE ESTERASE, URINE AUTO 2+ (NEGATIVE); MUCUS, URINE SMALL (NEGATIVE); NITRITE, URINE AUTO NEGATIVE (NEGATIVE); PROTEIN, URINE AUTO 1+ mg/dL (NEGATIVE); RBC, URINE AUTO 20 /HPF (0-3); SPECIFIC GRAVITY URINE AUTO 1.016 (1.002-1.035); SQUAMOUS EPITHELIAL CELL UR AU 9 /HPF (0-6); UROBILINOGEN, URINE AUTO 0.2 mg/dL (0.0-2.0); WBC, URINE AUTO 42 /HPF (0-3)
[2019-02-13 09:58] LABS: BASO % 0.3 % (0.0-1.0); EOS # 0.1 10^3/uL (0.0-0.5); EOS % 0.6 % (0.0-3.0); HEMATOCRIT 40.4 % (36.0-47.0); HEMOGLOBIN 13.2 g/dl (12.0-15.5); LYMPH # 1.4 10^3/uL (1.5-5.0); LYMPH % 10.1 % (24.0-44.0); MEAN CORPUSCULAR HEMOGLOBIN 32.1 pg (27.0-33.0); MEAN CORPUSCULAR HGB CONC 32.7 g/dl (32.0-36.5); MEAN CORPUSCULAR VOLUME 98.3 fl (80.0-96.0); MONO # 1.1 10^3/uL (0.0-0.8); NEUTROPHILS # 11.4 10^3/uL (1.5-8.5); NEUTROPHILS % 80.7 % (36.0-66.0); PLATELET COUNT, AUTOMATED 207 10^3/uL (150-450); RED BLOOD COUNT 4.11 10^6/uL (4.00-5.40); WHITE BLOOD COUNT 14.1 10^3/uL (4.0-10.0)
[2019-02-13] MEDS ORDERED: ISOVUE-370 76% 100ML VIAL (Q9967) As Ordered ONE (10:20)
[2019-02-13 11:00] LABS: ALBUMIN 3.3 GM/DL (3.2-5.2); ALT/SGPT 12 U/L (12-78); BILIRUBIN,DIRECT 0.3 MG/DL (0.0-0.2); BILIRUBIN,TOTAL 1.1 MG/DL (0.2-1.0); CK-MB VALUE MASS < 1.0 NG/ML (<3.6); CPK CREATINE PHOSPHOKINASE 25 U/L (26-192); LIPASE 147 U/L (73-393); TOTAL PROTEIN 6.9 GM/DL (6.4-8.2); TROPONIN I < 0.02 NG/ML (< 0.10)
--- NOTE | 2019-02-13 11:10 | REP ---
Clinical: Acute left lower quadrant pain. Technique: Axial contrast enhanced images from the lung bases to the pubic symphysis using 100 ml Isovue 370 intravenous contrast material with coronal and sagittal re-formations. Comparison: 11/12/2016 Findings: Mucosal thickening and pericolonic stranding involving the mid sigmoid colon in the setting of diverticulosis is compatible with acute diverticulitis (images 86 - 103). No bowel obstruction. No perforation. Small amount of fluid in the pelvis noted. Liver, spleen, and bilateral adrenal glands are normal. The kidneys demonstrate bilateral hypodensities suggesting cysts. Complex rounded lesion in the right mid kidney is stable compared to 2017 . There is a 1 cm hypodense lesion in the mid pancreas and 2.6 cm cyst inseparable from the duodenum and uncinate process of the pancreas which are stable compared to 2017. Evidence of prior cholecystectomy. Evaluation of the pelvis demonstrates relatively normal bladder and evidence of prior hysterectomy with pessary. No free air. No adenopathy. Atherosclerotic changes to the aorta without aneurysm or dissection. Musculoskeletal structures demonstrate degenerative changes. Lung bases demonstrate chronic changes as for cardiomegaly. Impression: 1. Acute sigmoid diverticulitis with small amount of free fluid. No evidence for perforation, obstruction, or drainable collection/abscess. 2. Stable left renal mass and bilateral renal cysts. 3. Stable pancreatic cysts. Electronically Signed by Gab Cummings MD 02/13/2019 11:01 A
[2019-02-13] MEDS ORDERED: FLAG500T PO (11:24)
[2019-02-13] MEDS ORDERED: MACR100C43 PO (11:24)
[2019-02-13 11:28] VITALS: BP 170/71
[2019-02-13] MEDS ORDERED: metroNIDAZOLE (FLAGYL) 500 MG TAB PO ONE (11:30)
[2019-02-13] MEDS ORDERED: NITROFURANTOIN (MACROBID) 100 MG CAP PO ONE (11:30)
--- NOTE | 2019-02-13 15:30 | ECGEPIP ---
[facility] - ED Test Date: 2019-02-13 Pat Name: YIMI RODAS Department: Room: - Gender: Female Programs Director: : 1930 Requested By: CHRISTA Haywood PA-C Order Number: [id number] Reading MD: Christopher Jiang Measurements Intervals [place] Rate: 69 P: MD: 0 QRS: -5 QRSD: 86 T: 29 QT: 368 QTc: 395 Interpretive Statements ATRIAL FIBRILLATION NONSPECIFIC ST & T-WAVE ABNORMALITY Similar to tracing done 04-15-18 Electronically Signed on 02-13-2019 15:30:06 EST by Christopher Jiang
== END 2019-02-13 11:57 | disposition home or self-care (01) ==
LOC: M ED 08:16
DX: K57.32 Diverticulitis of large intestine without perforation or abscess without bleeding (principal); N39.0 Urinary tract infection, site not specified; I48.91 Unspecified atrial fibrillation; I10 Essential (primary) hypertension; F41.9 Anxiety disorder, unspecified; F32.9 Major depressive disorder, single episode, unspecified; M10.9 Gout, unspecified; M54.9 Dorsalgia, unspecified; J45.909 Unspecified asthma, uncomplicated; K58.9 Irritable bowel syndrome, unspecified; N18.9 Chronic kidney disease, unspecified; K21.9 Gastro-esophageal reflux disease without esophagitis; E05.90 Thyrotoxicosis, unspecified without thyrotoxic crisis or storm; H35.30 Unspecified macular degeneration; D53.8 Other specified nutritional anemias; Z87.891 Personal history of nicotine dependence; N28.89 Other specified disorders of kidney and ureter; N28.1 Cyst of kidney, acquired; K86.2 Cyst of pancreas; Z79.01 Long term (current) use of anticoagulants; Z79.899 Other long term (current) drug therapy; Z88.2 Allergy status to sulfonamides; Z88.8 Allergy status to other drugs, medicaments and biological substances; Z88.1 Allergy status to other antibiotic agents
CPT/HCPCS: 74177; 80047; 80076; 81001; 82550; 82553; 83690; 84484; 85025; 87086; 93005; 96360; 96361; 99284; Q9967

== ENCOUNTER 2019-02-15 18:36 | Emergency (ER) | payer MEDICARE ==
[~2019-02-15 18:36] MED LIST changes: +FLAG500T PO; +MACR100C43 PO
--- NOTE | 2019-02-15 19:45 | REPVR ---
PROCEDURE INFORMATION: Exam: CT Head Without Contrast Exam date and time: 02/15/2019 6:40 PM Age: 89 years old Clinical indication: Numbness / parasthesia; Additional info: Numbness on face TECHNIQUE: Imaging protocol: Computed tomography of the head without contrast. Radiation optimization: All CT scans at this facility use at least one of these dose optimization techniques: automated exposure control; mA and/or kV adjustment per patient size (includes targeted exams where dose is matched to clinical indication); or iterative reconstruction. COMPARISON: CT Head without contrast 05/21/2018 8:17 PM, 06/16/[address] FINDINGS: Brain: There is a partially calcified mass which is likely a meningioma along the anterior falx and skull base measuring 2.1 cm AP. It is only partially apparent on the 2018 CT at which time it measured 1.6 cm. There is no acute cortical infarction or intracranial hemorrhage. There is a stable focal low density in the right lentiform nucleus possibly due to prior lacunar infarction. Ventricles: The ventricles appear mildly enlarged, but not out of proportion to the degree of parenchymal volume loss. Bones/joints: Unremarkable. No acute fracture. Sinuses: See Brain Finding. Mastoid air cells: Visualized mastoid air cells are well aerated. Soft tissues: Unremarkable. Vasculature: Atherosclerosis. IMPRESSION: No acute intracranial findings. There is a probable partially calcified meningioma possibly emanating from the inferior falx or floor of the anterior cranial fossa. This is seen on 2 prior CTs including 06/16/2016. Electronically signed by: Sarah Rob On 02/15/2019 19:44:47 PM
[2019-02-15 20:01] LABS: BASO % 0.5 % (0.0-1.0); EOS # 0.1 10^3/uL (0.0-0.5); HEMATOCRIT 41.1 % (36.0-47.0); HEMOGLOBIN 13.9 g/dl (12.0-15.5); LYMPH # 1.8 10^3/uL (1.5-5.0); LYMPH % 28.2 % (24.0-44.0); MEAN CORPUSCULAR HEMOGLOBIN 32.3 pg (27.0-33.0); MEAN CORPUSCULAR HGB CONC 33.8 g/dl (32.0-36.5); MEAN CORPUSCULAR VOLUME 95.6 fl (80.0-96.0); MONO # 0.6 10^3/uL (0.0-0.8); MONO % 9.5 % (0.0-5.0); NEUTROPHILS # 3.9 10^3/uL (1.5-8.5); NEUTROPHILS % 59.3 % (36.0-66.0); PLATELET COUNT, AUTOMATED 225 10^3/uL (150-450); WHITE BLOOD COUNT 6.5 10^3/uL (4.0-10.0)
[2019-02-15 20:23] LABS: ERYTHROCYTE SEDIMENTATION RATE 33 mm/hr (0-30)
[2019-02-15 20:24] LABS: CALCIUM LEVEL 8.6 MG/DL (8.8-10.2); CREATININE FOR GFR 1.4 MG/DL (0.55-1.30); GLOMERULAR FILTRATION RATE 37.8 (>32); POTASSIUM SERUM 3.8 MEQ/L (3.5-5.1)
[2019-02-15] MEDS ORDERED: carBAMazepine 100 MG *1/2* TAB PO ONE (20:45)
[2019-02-15] MEDS ORDERED: NS 500 ML IV ONE (20:45)
[2019-02-15] MEDS ORDERED: dexameTHASONE 20 MG/5 ML VIAL (J1100) IV ONE (20:45)
[2019-02-15] MEDS ORDERED: PRED20TA PO (21:51)
[2019-02-15 22:00] VITALS: BP 150/79
== END 2019-02-15 22:13 | disposition home or self-care (01) ==
LOC: M ED 18:36
DX: M31.6 Other giant cell arteritis (principal); I48.91 Unspecified atrial fibrillation; I10 Essential (primary) hypertension; I51.9 Heart disease, unspecified; K57.32 Diverticulitis of large intestine without perforation or abscess without bleeding; N28.89 Other specified disorders of kidney and ureter; H35.30 Unspecified macular degeneration; G96.19 Other disorders of meninges, not elsewhere classified; Z87.891 Personal history of nicotine dependence; Z79.01 Long term (current) use of anticoagulants; Z79.899 Other long term (current) drug therapy; Z88.2 Allergy status to sulfonamides; Z88.8 Allergy status to other drugs, medicaments and biological substances; Z88.1 Allergy status to other antibiotic agents
CPT/HCPCS: 70450; 80048; 82375; 85025; 85652; 96374; 99285; J1100

== ENCOUNTER → 2019-02-24 | Outpatient (REF) | payer MEDICARE ==
[~2019-02-24] MED LIST changes: -LORA0.5T11 PO; +LORA0.5T5 PO; +NIFE1TAB51 PO; -NIFE60TA6 PO; +PRED20TA PO
== END ==
LOC: M LAB REF 16:37
PROVIDERS: ATTEND Family Medicine
DX: M31.6 Other giant cell arteritis (principal)

== ENCOUNTER → 2019-04-23 | Outpatient (REF) | payer MEDICARE | LOC: M LAB REF 17:04 | PROVIDERS: ATTEND Internal Medicine Nephrology | DX: N39.0 Urinary tract infection, site not specified (principal) ==

== ENCOUNTER → 2019-10-29 | Outpatient (CLI) | payer MEDICARE ==
--- NOTE | 2019-11-12 11:43 | REP ---
RIGHT FOOT SERIES: 4-VIEWS HISTORY: Pain in the right toes. Lateral foot pain. COMPARISON: Radiographs from 04/11/2017. FINDINGS: There is diffuse osteopenia. A slightly comminuted mid-shaft fracture is seen in the fifth metatarsal on todays radiographs with associated soft tissue swelling. No displacement, but very slight impaction. No other fracture is seen. Plantar and Achilles calcaneal spurring are noted. Vascular calcification is noted. IMPRESSION: Slightly comminuted and impacted fifth metatarsal fracture. Diffuse osteopenia. [facility]
== END ==
LOC: M WUC 10:22
PROVIDERS: ATTEND Physician Assistant
DX: M79.674 Pain in right toe(s) (principal); M85.871 Other specified disorders of bone density and structure, right ankle and foot

== ENCOUNTER → 2019-11-20 | Outpatient (REF) | payer MEDICARE ==
[2019-11-20 13:09] LABS: URIC ACID 6.7 MG/DL (2.6-6.0)
[2019-11-20 13:24] LABS: PTH INTACT 101.6 PG/ML (18.5-88.0)
== END ==
LOC: M LAB REF 12:07
PROVIDERS: ATTEND Family Medicine
DX: I12.9 Hypertensive chronic kidney disease with stage 1 through stage 4 chronic kidney disease, or unspecified chronic kidney disease (principal); N18.9 Chronic kidney disease, unspecified

== ENCOUNTER → 2020-04-20 | Outpatient (CLI) | payer MEDICARE ==
[~2020-04-20] MED LIST changes: +COLC0.6T47; -COLC1TAB13; -LISI-538 PO; +LISI20TA33 PO
--- NOTE | 2020-04-20 14:43 | REP ---
INDICATION: RENAL MASS. COMPARISON: 05/15/2018. TECHNIQUE: Real-time sonographic evaluation of the kidneys is performed. FINDINGS: Once again there are cystic structures seen in both kidneys. In the mid right kidney a septated cyst measures 4.5 x 3.6 x 3.5 cm. In the lower pole in anechoic simple cyst measures 2.7 cm. There is adjacent septated cyst measuring 2.3 x 3.2 x 2.9 cm. On the left the septated cyst in the upper pole measures 1.6 x 1.4 x 1.3 cm. A simple cyst in the lower pole measures 1.7 cm. There is a hypoechoic solid nodule in the mid left kidney which is unchanged in size measuring 2.8 x 2.6 x 2.4 cm. There is no hydronephrosis bilaterally. Urinary bladder is not well distended and not well evaluated. Ureteral jets could not be visualized with Doppler color evaluation. The right kidney measures 8.3 x 5.4 x 4.5 cm. Left renal dimensions are 9.9 x 4.6 x 4.4 cm. IMPRESSION: Stable bilateral cystic structures. Stable solid nodule mid left kidney 2.8 x 2.6 x 2.4 cm. <Electronically signed by Kamari Causey > 04/20/20 [id number]
== END ==
LOC: M RAD 13:40
PROVIDERS: ATTEND Urology
DX: N28.89 Other specified disorders of kidney and ureter (principal)

== ENCOUNTER → 2020-07-14 | Outpatient (REF) | payer MEDICARE ==
[2020-07-14 18:15] LABS: URIC ACID 7.7 MG/DL (2.6-6.0)
[2020-07-14 19:53] LABS: PTH INTACT 84.9 PG/ML (18.5-88.0)
== END ==
LOC: M LAB REF 17:20
PROVIDERS: ATTEND Family Medicine
DX: M10.9 Gout, unspecified (principal); E21.3 Hyperparathyroidism, unspecified

== ENCOUNTER 2020-08-10 13:49 | Emergency (ER) | payer MEDICARE ==
[~2020-08-10] VITALS: Ht 154.9 cm; Wt 57.9 kg
[2020-08-10 15:27] LABS: BASO # 0.1 10^3/uL (0.0-0.2); BASO % 0.7 % (0.0-1.0); EOS # 0.2 10^3/uL (0.0-0.5); EOS % 2.3 % (0.0-3.0); HEMATOCRIT 41.9 % (36.0-47.0); HEMOGLOBIN 14.1 g/dl (12.0-15.5); LYMPH # 1.7 10^3/uL (1.5-5.0); LYMPH % 25.3 % (24.0-44.0); MEAN CORPUSCULAR HEMOGLOBIN 32.4 pg (27.0-33.0); MEAN CORPUSCULAR HGB CONC 33.7 g/dl (32.0-36.5); MEAN CORPUSCULAR VOLUME 96.3 fl (80.0-96.0); MONO # 0.7 10^3/uL (0.0-0.8); MONO % 10.1 % (2.0-8.0); NEUTROPHILS # 4.2 10^3/uL (1.5-8.5); NEUTROPHILS % 61.2 % (36.0-66.0); PLATELET COUNT, AUTOMATED 212 10^3/uL (150-450); RED BLOOD COUNT 4.35 10^6/uL (4.00-5.40); WHITE BLOOD COUNT 6.8 10^3/uL (4.0-10.0)
[2020-08-10 16:06] LABS: ALBUMIN 3.8 GM/DL (3.2-5.2); ALT/SGPT 19 U/L (12-78); BILIRUBIN,DIRECT 0.1 MG/DL (0.0-0.2); BILIRUBIN,TOTAL 0.9 MG/DL (0.2-1.0); BLOOD UREA NITROGEN 27 MG/DL (7-18); CALCIUM LEVEL 8.8 MG/DL (8.8-10.2); CARBON DIOXIDE LEVEL 24 MEQ/L (21-32); CHLORIDE LEVEL 108 MEQ/L (98-107); CREATININE FOR GFR 1.28 MG/DL (0.55-1.30); GLOMERULAR FILTRATION RATE 41.8 (>32); GLUCOSE, FASTING 93 MG/DL (70-100); LIPASE 334 U/L (73-393); POTASSIUM SERUM 4.4 MEQ/L (3.5-5.1); SODIUM LEVEL 138 MEQ/L (136-145); TOTAL PROTEIN 7.9 GM/DL (6.4-8.2)
[2020-08-10] MEDS ORDERED: MORPHINE 4 MG/ML 1ML VIAL/SYRINGE (J2270) IV ONE (16:40)
[2020-08-10] MEDS ORDERED: ISOVUE-370 76% 100ML VIAL As Ordered ONE (16:48)
[2020-08-10 17:20] LABS: CK-MB VALUE MASS < 1.0 NG/ML (<3.6); CPK CREATINE PHOSPHOKINASE 69 U/L (26-192); MB/CK RELATIVE INDEX 1.45 (< OR =4); TROPONIN I < 0.02 NG/ML (< 0.10)
[2020-08-10] MEDS: GASTROGRAFIN SOLUTION 30ML PO SCH ×2 (17:25→17:45)
[2020-08-10] MEDS ORDERED: LABETALOL 100MG/20ML VIAL IV STA (18:50)
[2020-08-10 18:59] VITALS: BP 209/95
--- NOTE | 2020-08-10 20:07 | REPVR ---
PROCEDURE INFORMATION: Exam: CT Abdomen And Pelvis With Contrast Exam date and time: 08/10/2020 6:34 PM Age: 89 years old Clinical indication: Other: Gen abd pain TECHNIQUE: Imaging protocol: Computed tomography of the abdomen and pelvis with contrast. Radiation optimization: All CT scans at this facility use at least one of these dose optimization techniques: automated exposure control; mA and/or kV adjustment per patient size (includes targeted exams where dose is matched to clinical indication); or iterative reconstruction. Contrast material: ISOVUE 370; Contrast volume: 100 ml; Contrast route: INTRAVENOUS (IV); COMPARISON: CT ABD/PEL W/IV CONTRAST ONLY 02/13/2019 10:45 AM FINDINGS: Lungs: Emphysematous changes at the visualized lung bases. Heart: Cardiomegaly. Liver: Normal. No mass. Gallbladder and bile ducts: Cholecystectomy clips. Common bile duct measures 1.3 cm. Pancreas: Normal. No ductal dilation. Spleen: Normal. No splenomegaly. Adrenal glands: Normal. No mass. Kidneys and ureters: Multiple bilateral renal cysts. The largest measures 3.6 cm at the midpole in right kidney. Cyst in the midpole of left kidney measures 2.3 cm with the nodular periphery. Stomach and bowel: There is subtle colonic wall thickening with the minimal surrounding fat stranding of the descending colon (series 201, image 57). Appendix: No evidence of appendicitis. Intraperitoneal space: Unremarkable. No free air. No significant fluid collection. Vasculature: Atherosclerotic calcification of the abdominal aorta. Lymph nodes: Unremarkable. No enlarged lymph nodes. Urinary bladder: Unremarkable as visualized. Reproductive: Vaginal diaphragm. Bones/joints: Hardware in the left femoral neck. Degenerative changes of the spine. Soft tissues: Unremarkable. IMPRESSION: 1. Multiple bilateral renal cysts. Cyst in the midpole of left kidney with nodular periphery. CT or MRI with the renal protocol is recommended for evaluation of neoplasm. 2. Subtle wall thickening and fat stranding of the distal descending colon suspicious for early acute diverticulitis. COMMENTS: Consistent with the [place] [employer]'s Incidental Findings Committee white paper (J Am Caesar Radiol 2018): Any incidental renal lesion less than 1 cm or classified as too small to characterize, or any incidental cystic renal lesion characterized as simple-appearing, is likely benign. No follow-up imaging is recommended for these lesions per consensus recommendations based on imaging criteria. Electronically signed by: Bahman Landa On 08/10/2020 20:07:09 PM
[2020-08-10 21:00] VITALS: BP 172/84
[2020-08-10] MEDS ORDERED: AUGMENTIN 875 MG TAB PO ONE (21:10)
[2020-08-10] MEDS ORDERED: AUGM875T28 PO (21:12)
--- NOTE | 2020-08-11 17:56 | ECGEPIP ---
[facility] - ED Test Date: 2020-08-10 Pat Name: YIMI RODAS Department: Room: - Gender: Female Survey Questionnaire Designer: GILDA : 1930 Requested By: ZANA Cobb Order Number: [id number] Reading MD: Juliet Tiwari Measurements Intervals [place] Rate: 54 P: [place]: QRS: -5 QRSD: 88 T: 3 QT: 426 QTc: 403 Interpretive Statements Atrial fibrillation with slow ventricular response NSTTW abnormalities decreased rate 02/13/19 Electronically Signed on 08-11-2020 17:55:48 EDT by Juliet Tiwari
== END 2020-08-10 21:51 | disposition home or self-care (01) ==
LOC: M ED 13:49
DX: K57.32 Diverticulitis of large intestine without perforation or abscess without bleeding (principal); I48.91 Unspecified atrial fibrillation; I10 Essential (primary) hypertension; N18.9 Chronic kidney disease, unspecified; F32.9 Major depressive disorder, single episode, unspecified; Z87.891 Personal history of nicotine dependence; H40.9 Unspecified glaucoma; H26.9 Unspecified cataract; N28.1 Cyst of kidney, acquired; Z79.01 Long term (current) use of anticoagulants; Z79.899 Other long term (current) drug therapy; Z88.2 Allergy status to sulfonamides; Z88.1 Allergy status to other antibiotic agents; Z88.8 Allergy status to other drugs, medicaments and biological substances
CPT/HCPCS: 36415; 74177; 80048; 80076; 82550; 82553; 83690; 84484; 85025; 93005; 93041; 94760; 96374; 99285; Q9963; Q9967

== ENCOUNTER 2020-08-15 08:18 | Emergency (ER) | payer MEDICARE ==
[~2020-08-15] VITALS: Ht 154.9 cm; Wt 59.0 kg
[~2020-08-15 08:18] MED LIST changes: +AUGM875T28 PO
[2020-08-15] MEDS ORDERED: SIMB1SUS OU (08:30)
[2020-08-15] MEDS ORDERED: BREO1INH PO (08:31)
[2020-08-15] MEDS ORDERED: ACET325C5 PO (08:33)
[2020-08-15] MEDS ORDERED: LEXA1TAB PO (08:37)
[2020-08-15] MEDS ORDERED: AMLO1TAB24 PO (08:37)
[2020-08-15] MEDS ORDERED: PERCOCET 5MG/325MG TAB PO ONE (08:40)
[2020-08-15 09:17] LABS: BASO % 0.3 % (0.0-1.0); EOS % 0.2 % (0.0-3.0); HEMATOCRIT 39.5 % (36.0-47.0); HEMOGLOBIN 13.3 g/dl (12.0-15.5); LYMPH % 8.1 % (24.0-44.0); MEAN CORPUSCULAR HGB CONC 33.7 g/dl (32.0-36.5); MEAN CORPUSCULAR VOLUME 95.2 fl (80.0-96.0); MONO # 0.9 10^3/uL (0.0-0.8); NEUTROPHILS # 9.7 10^3/uL (1.5-8.5); NEUTROPHILS % 82.9 % (36.0-66.0); PLATELET COUNT, AUTOMATED 165 10^3/uL (150-450); RED BLOOD COUNT 4.15 10^6/uL (4.00-5.40); WHITE BLOOD COUNT 11.8 10^3/uL (4.0-10.0)
[2020-08-15 09:39] LABS: ERYTHROCYTE SEDIMENTATION RATE 21 mm/hr (0-30)
[2020-08-15 09:52] LABS: ALBUMIN 3.4 GM/DL (3.2-5.2); BILIRUBIN,DIRECT 0.3 MG/DL (0.0-0.2); BILIRUBIN,TOTAL 1.2 MG/DL (0.2-1.0); C REACTIVE PROTEIN QUANTITATIV 12.9 MG/DL (0.00-0.30); CALCIUM LEVEL 8.1 MG/DL (8.8-10.2); CREATININE FOR GFR 1.17 MG/DL (0.55-1.30); GLOMERULAR FILTRATION RATE 46.4 (>32); POTASSIUM SERUM 3.7 MEQ/L (3.5-5.1); TOTAL PROTEIN 6.9 GM/DL (6.4-8.2)
[2020-08-15] MEDS ORDERED: predniSONE 20 MG TAB PO ONE (10:50)
[2020-08-15] MEDS ORDERED: PRED20TA PO (10:54)
[2020-08-15 11:30] VITALS: BP 108/60
== END 2020-08-15 11:36 | disposition home or self-care (01) ==
LOC: EDBD 08:18 → M ED 08:18
DX: M10.9 Gout, unspecified (principal); K57.32 Diverticulitis of large intestine without perforation or abscess without bleeding; I48.91 Unspecified atrial fibrillation; I10 Essential (primary) hypertension; Z79.01 Long term (current) use of anticoagulants; Z79.899 Other long term (current) drug therapy; Z88.2 Allergy status to sulfonamides; Z88.8 Allergy status to other drugs, medicaments and biological substances; Z88.1 Allergy status to other antibiotic agents
CPT/HCPCS: 36415; 80048; 80076; 84550; 85025; 85652; 86140; 87040; 99284; J7512

== ENCOUNTER → 2020-08-24 | Outpatient (REF) | payer MEDICARE ==
[~2020-08-24] MED LIST changes: +ACET325C5 PO; +AMLO1TAB24 PO; +BREO1INH PO
[2020-08-24 17:19] LABS: C REACTIVE PROTEIN QUANTITATIV 1.23 MG/DL (0.00-0.30); URIC ACID 7.3 MG/DL (2.6-6.0)
== END ==
LOC: M LAB REF 16:36
PROVIDERS: ATTEND Family Medicine
DX: M10.9 Gout, unspecified (principal)

== ENCOUNTER → 2020-10-25 | Outpatient (REF) | payer MEDICARE | LOC: M LAB REF 17:02 | PROVIDERS: ATTEND Internal Medicine Nephrology | DX: N18.32 Chronic kidney disease, stage 3b (principal) ==